=== PATIENT | female | born 1960 | race Caucasian/White ===

== ENCOUNTER 2017-08-09 11:54 | Observation (INO) | payer MEDICARE, OTHER ==
[~2017-08-09] VITALS: Ht 160 cm; Wt 79.8 kg
[2017-08-09] MEDS ORDERED: ONDANSETRON HCL 4 MG ORAL DISINTEGRATING TAB PO ONE (12:00)
[2017-08-09] MEDS ORDERED: SODIUM CHLORIDE 0.9% 1000ML 1,000 ML IV STA ×2 (12:00→13:15)
[2017-08-09] MEDS ORDERED: PANTOPRAZOLE 40 MG 10ML VIAL IV STA (12:08)
[2017-08-09 12:37] LABS: CLARITY,URINE CLOUDY (CLEAR); COLOR,URINE AMBER (YELLOW); LEUKOCYTE ESTERASE ,URINE 1+ (NEGATIVE); NITRITE,URINE POSITIVE (NEGATIVE)
[2017-08-09 12:38] LABS: BILIRUBIN,URINE 1+ (NEGATIVE); KETONES,URINE 1+ (NEGATIVE); PROTEIN,URINE DIPSTICK 2+ (NEGATIVE); URINE UROBILINOGEN 1 mg/dL (0.2 - 1)
[2017-08-09 12:41] LABS: BASOPHILS # (AUTO) 0.1 (0.0-0.1); BASOPHILS % 0.8 % (0.0-1.0); EOSINOPHILS # (AUTO) 0.1 (0.0-0.4); EOSINOPHILS % 0.5 % (0.0-6.0); HEMATOCRIT 42.8 % (34.2-44.1); HEMOGLOBIN 14.6 g/dL (12.0-16.0); LYMPHOCYTES % 20.4 % (18.0-39.1); MEAN CORPUSCULAR HEMOGLOBIN 29.7 pg (28-32); MEAN CORPUSCULAR HGB CONC 34.1 g/dL (31-35); MONOCYTES # (AUTO) 1.4 (0.2-0.8); MONOCYTES % 14.5 % (4.4-11.3); NEUTROPHILS % 63.2 % (38.7-80.0); PLATELET COUNT 243 x10e3/uL (140-360); RED BLOOD COUNT 4.92 x10e6/uL (3.6-5.1)
[2017-08-09 12:44] LABS: BACTERIA,URINE MANY /HPF; EPITHELIAL CELLS,URINE FEW /LPF; WBC,URINE (MAN) >50 /HPF (0-5)
[2017-08-09 12:59] LABS: ALBUMIN 4.2 g/dL (3.5-5.0); ALBUMIN/GLOBULIN RATIO 0.9 (0.8-2.0); ANION GAP 23.4 mmol/L (8-16); CALCIUM 10.6 mg/dL (8.4-10.2); CREATININE, SERUM 1.68 mg/dL (0.57-1.11); POTASSIUM 3.4 mmol/L (3.5-5.1)
[2017-08-09 13:06] LABS: CREATINE KINASE MB 1.3 ng/mL (0-5.0)
[2017-08-09] MEDS ORDERED: METRONIDAZOLE 500MG/NS 100ML 100 ML IV ONE (13:15)
[2017-08-09] MEDS ORDERED: LEVOFLOXACIN 500MG/D5W 100ML 100 ML IV ONE (13:15)
[2017-08-09] MEDS ORDERED: ONDANSETRON HCL INJ 2 MG/ML VIAL IV PRN (13:30)
--- OUTSIDE RECORDS SUMMARY | 2017-08-09 14:44 | XMS REPORT ---
Author Author [facility] [place] Address Unknown Phone Unavailable Care Team Providers Care Film Tests Checker Name Role Phone Unavailable Unavailable Problems This patient has no known problems. Allergies, Adverse Reactions, Alerts This patient has no known allergies or adverse reactions. Medications This patient has no known medications. Encounters Start Date/Time End Date/Time Encounter Type Admission Type Attending [facility] Facility Care Department Encounter ID 2016-11-17 00:04:23 Inpatient [facility] [id number] 2016-11-16 00:20:13 Inpatient [facility] [id number] 2016-11-15 18:16:24 Inpatient [facility] [id number] 2016-11-15 09:17:56 Inpatient [facility] [id number] 2016-11-15 00:04:00 Inpatient [facility] [id number] 2016-11-14 14:14:48 Inpatient [facility] [id number] 2016-11-14 00:08:49 Inpatient [facility] [id number] 2016-11-13 10:08:08 Inpatient [facility] [id number] 2016-11-13 00:17:27 Inpatient [facility] [id number] 2016-11-12 00:34:06 Inpatient [facility] [id number] 2016-11-11 18:58:17 Inpatient [facility] [id number] 2016-11-11 08:57:00 Inpatient [facility] [id number] 2016-11-11 00:00:00 Inpatient [facility] [id number] 2016-11-09 00:00:00 Inpatient [facility] [id number] 2017-10-31 00:00:00 2017-10-31 00:00:00 Outpatient [facility] [id number] 2017-09-08 00:00:00 2017-09-08 00:00:00 Outpatient [facility] [id number] 2017-09-05 00:00:00 2017-09-05 00:00:00 Outpatient [facility] [id number] 2017-09-05 00:00:00 2017-09-05 00:00:00 Outpatient [facility] [id number] 2017-08-01 13:30:51 2017-08-01 13:30:51 Outpatient [facility] [id number] 2017-07-19 09:33:43 2017-07-19 09:33:43 Outpatient [facility] [id number] 2017-07-13 08:29:37 2017-07-13 08:29:37 Outpatient [facility] [id number] 2017-07-12 12:45:09 2017-07-12 12:45:09 Outpatient [facility] [id number] 2017-07-11 00:00:00 2017-07-11 00:00:00 Outpatient [facility] [id number] 2017-07-05 10:03:05 2017-07-05 10:03:05 Outpatient [facility] [id number] 2017-06-27 00:00:00 2017-06-27 00:00:00 Outpatient [facility] [id number] 2017-06-09 15:35:04 2017-06-09 15:35:04 Outpatient [facility] [id number] 2017-06-03 13:55:09 2017-06-03 13:55:09 Outpatient [facility] [id number] 2017-06-02 00:00:00 2017-06-02 00:00:00 Outpatient [facility] [id number] 2017-05-30 00:00:00 2017-05-30 00:00:00 Outpatient [facility] [id number] 2017-05-27 12:45:52 2017-05-27 12:45:52 Outpatient [facility] [id number] 2017-05-26 00:00:00 2017-05-26 00:00:00 Outpatient [facility] [id number] 2017-05-24 14:49:29 2017-05-24 14:49:29 Outpatient [facility] [id number] 2017-05-20 00:00:00 2017-05-20 00:00:00 Outpatient [facility] [id number] 2017-05-20 00:00:00 2017-05-20 00:00:00 Outpatient [facility] [id number] 2017-05-09 15:23:18 2017-05-09 15:23:18 Outpatient [facility] [id number] 2017-03-28 10:26:44 2017-03-28 10:26:44 Outpatient [facility] [id number] 2017-03-17 13:54:59 2017-03-17 13:54:59 Outpatient [facility] [id number] 2017-02-28 08:22:05 2017-02-28 08:22:05 Outpatient [facility] [id number] 2017-02-24 14:07:54 2017-02-24 14:07:54 Outpatient [facility] [id number] 2017-02-24 13:27:20 2017-02-24 13:27:20 Outpatient [facility] [id number] 2017-02-14 00:00:00 2017-02-14 00:00:00 Outpatient [facility] [id number] 2017-01-24 13:47:29 2017-01-24 13:47:29 Outpatient [facility] [id number] 2017-01-05 11:20:11 2017-01-05 11:20:11 Outpatient [facility] [id number] 2016-12-29 00:00:00 2016-12-29 00:00:00 Outpatient [facility] [id number] 2016-12-08 00:00:00 2016-12-08 00:00:00 Outpatient [facility] [id number] 2016-12-06 09:59:18 2016-12-06 09:59:18 Outpatient [facility] [id number] 2016-12-01 12:46:33 2016-12-01 12:46:33 Outpatient [facility] [id number] 2016-11-29 14:08:58 2016-11-29 14:08:58 Outpatient [facility] [id number] 2016-11-29 10:01:33 2016-11-29 10:01:33 Outpatient [facility] [id number] 2016-11-29 00:00:00 2016-11-29 00:00:00 Outpatient [facility] [id number] 2016-11-25 12:49:49 2016-11-25 12:49:49 Outpatient [facility] [id number] 2016-11-25 12:29:36 2016-11-25 12:29:36 Outpatient [facility] [id number] 2016-11-24 10:15:08 2016-11-24 10:15:08 Outpatient [facility] [id number] 2016-11-24 09:29:35 2016-11-24 09:29:35 Outpatient [facility] [id number] 2016-11-24 00:00:00 2016-11-24 00:00:00 Outpatient [facility] [id number] 2016-11-09 00:00:00 2016-11-09 00:00:00 Outpatient [facility] [id number] 2016-11-08 07:06:52 2016-11-08 07:06:52 Outpatient [facility] [id number] 2016-11-08 00:00:00 2016-11-08 00:00:00 Outpatient [facility] [id number] 2016-11-05 00:00:00 2016-11-05 00:00:00 Outpatient [facility] [id number] 2016-11-04 00:00:00 2016-11-04 00:00:00 Outpatient [facility] [id number] 2016-11-04 00:00:00 2016-11-04 00:00:00 Outpatient [facility] [id number] 2016-11-03 11:31:56 2016-11-03 11:31:56 Outpatient [facility] [id number] 2016-11-03 00:00:00 2016-11-03 00:00:00 Outpatient [facility] [id number] 2016-10-28 10:20:03 2016-10-28 10:20:03 Outpatient [facility] [id number] 2016-10-28 00:00:00 2016-10-28 00:00:00 Outpatient [facility] [id number] 2016-10-25 12:54:28 2016-10-25 12:54:28 Outpatient [facility] [id number] 2016-10-24 00:00:00 2016-10-24 00:00:00 Outpatient [facility] [id number] 2016-10-21 10:19:00 2016-10-21 10:19:00 Outpatient [facility] [id number] 2016-10-20 11:44:27 2016-10-20 11:44:27 Outpatient [facility] [id number] 2016-10-20 09:29:23 2016-10-20 09:29:23 Outpatient [facility] [id number] 2016-10-19 08:33:00 2016-10-19 08:33:00 Outpatient [facility] [id number] 2016-08-02 08:44:58 2016-08-02 08:44:58 Outpatient [facility] [id number]
[2017-08-09] MEDS ORDERED: POTASSIUM CHLORIDE 20 MEQ TAB CR PO STA (15:27)
[2017-08-09] MEDS ORDERED: METOPROLOL TART25 MG PO (17:20)
[2017-08-09] MEDS ORDERED: CETIRIZINE HCL10 MG PO (17:20)
[2017-08-09] MEDS ORDERED: AMLODIPINE BESY10 MG PO (17:20)
[2017-08-09 18:08] VITALS: BP 117/85
[2017-08-09 18:14] VITALS: BP 117/85
[2017-08-09] MEDS: METRONIDAZOLE 500MG/NS 100ML 100 ML IV SCH ×2 (18:30→23:28)
[2017-08-09] MEDS: SODIUM CHLORIDE 0.9% 1000ML 1,000 ML IV SCH ×2 (18:30→21:27)
--- NOTE | 2017-08-09 18:46 | History and Physical ---
Patient of Dr. Granados and usually followed at [facility]. Admitted with vomiting, diarrhea, abdominal cramps, history of carcinoma of the ovary, carcinoma of the head and neck, right radical neck dissection, history of left upper lobe lobectomy in 2018 at [facility]. No other surgeries. MEDICATIONS: Include metoprolol 25 mg a day, amlodipine, cholesterol lowering agent. ALLERGIES: SHE HAS NO KNOWN ALLERGIES. She has a history of hypertension, hyperlipidemia, gastroesophageal reflux. She is dyspneic on slight exertion. She is now disabled after her lungs. Denies GI or complaints. Denies heart problems except for hypertension. Denies strokes. PHYSICAL EXAMINATION GENERAL: She is a well-developed white female looking somewhat older than her stated age. She was complaining of vomiting and inability to eat for approximately 3 days. She believe she may have had eaten some rice, which was old. VITALS: Temperature 98.2, pulse 71, respirations 18, blood pressure 135/80. HEENT: Normocephalic and atraumatic. Eyes: Extraocular muscles intact. Scar of right side of neck for radical neck dissection. CHEST: Scar of chest wall. Lungs with diminished breath sounds. HEART: Regular rhythm. ABDOMEN: Nontender. EXTREMITIES: Nonedematous. IMPRESSION 1. Gastroenteritis. 2. History of lung cancer, head and neck cancer. 3. Ex-smoker. 4. Chronic obstructive pulmonary disease. PLAN: For bronchodilators. Partial resumption of antihypertensive medications. IV fluids. Check stool for C. diff. Currently, she has been given Flagyl and Levaquin. Check stool for cultures. Defer C. diff as she has not been on antibiotics. Thank you for this kind referral. Job#: [id number] PEDRO
[2017-08-09] MEDS: ALBUTEROL/IPRATROPIUM 3 ML NEB NEB SCH (19:00)
[2017-08-09] MEDS ORDERED: ONDANSETRON HCL 4 MG ORAL DISINTEGRATING TAB PO PRN (19:45)
[2017-08-09 19:49] VITALS: BP 117/85
[2017-08-09] MEDS ORDERED: ONDANSETRON HCL 4 MG ORAL DISINTEGRATING TAB SL PRN (20:00)
--- NOTE | 2017-08-09 20:13 | Diagnostic Imaging Report ---
EXAMINATION: PA and lateral views of the chest. COMPARISON: None CLINICAL HISTORY: dehydration DISCUSSION: Lines/tubes: None. Lungs: The lungs are well inflated. Linear atelectasis. No evidence of pneumonia or pulmonary edema. Pleura: There is no pleural effusion or pneumothorax. Heart and mediastinum: The cardiomediastinal silhouette is normal. Bones and soft tissues: No acute bony abnormalities. IMPRESSION: No acute cardiopulmonary abnormalities. Signed by: Dr. Yayo Zee M.D. on 08/09/2017 8:10 PM
--- NOTE | 2017-08-09 20:15 | Diagnostic Imaging Report ---
Exam: Abdominal film Clinical History: Dehydration Comparison: None. DISCUSSION: Frontal view of the abdomen shows a nonobstructive bowel gas pattern with mild amount of retained stool. No dilated, air-filled loops of bowel. There are no abnormal calcifications. Surgical clips. IMPRESSION: 1. Nonobstructive bowel gas pattern. Signed by: Dr. Yayo Zee M.D. on 08/09/2017 8:11 PM
[2017-08-09] MEDS: METOPROLOL SUCCINATE 25 MG TAB XL PO SCH (20:48)
[2017-08-09 21:04] VITALS: BP 142/85
[2017-08-09 23:54] VITALS: BP 116/85
[2017-08-10] MEDS: ALBUTEROL/IPRATROPIUM 3 ML NEB NEB SCH ×2 (01:00→07:00)
[2017-08-10 04:00] VITALS: BP 114/71
[2017-08-10] MEDS: METRONIDAZOLE 500MG/NS 100ML 100 ML IV SCH (05:35)
[2017-08-10] MEDS: SODIUM CHLORIDE 0.9% 1000ML 1,000 ML IV SCH (05:35)
[2017-08-10 06:12] LABS: BASOPHILS # (AUTO) 0.1 (0.0-0.1); BASOPHILS % 0.8 % (0.0-1.0); EOSINOPHILS # (AUTO) 0.1 (0.0-0.4); EOSINOPHILS % 1.9 % (0.0-6.0); HEMOGLOBIN 11.7 g/dL (12.0-16.0); LYMPHOCYTES # (AUTO) 1.8 (1.0-3.2); LYMPHOCYTES % 24.4 % (18.0-39.1); MEAN CORPUSCULAR HEMOGLOBIN 29.7 pg (28-32); MEAN CORPUSCULAR HGB CONC 33.4 g/dL (31-35); MEAN CORPUSCULAR VOLUME 88.8 fL (81-99); MONOCYTES # (AUTO) 1.4 (0.2-0.8); MONOCYTES % 19.2 % (4.4-11.3); NEUTROPHILS % 52.9 % (38.7-80.0); PLATELET COUNT 170 x10e3/uL (140-360); RED BLOOD COUNT 3.94 x10e6/uL (3.6-5.1)
[2017-08-10 06:34] LABS: ALBUMIN 3.3 g/dL (3.5-5.0); ANION GAP 16.6 mmol/L (8-16); CALCIUM 8.8 mg/dL (8.4-10.2); CREATININE, SERUM 1.05 mg/dL (0.57-1.11); POTASSIUM 3.6 mmol/L (3.5-5.1)
[2017-08-10 08:23] VITALS: BP 123/87
[2017-08-10] MEDS ORDERED: LEVAQUIN500 MG PO ×2 (08:32→13:43)
[2017-08-10] MEDS ORDERED: FLAGYL500 MG PO (08:33)
[2017-08-10] MEDS ORDERED: PANTOPRAZOLE 40 MG 10ML VIAL IV SCH (09:00)
[2017-08-10] MEDS ORDERED: LEVOFLOXACIN 500MG/D5W 100ML 100 ML IV SCH (09:00)
--- NOTE | 2017-08-10 09:15 | Discharge Summary ---
Patient was admitted overnight for dehydration. She is usually followed by the [facility]. She is a patient of Dr. Granados and Dr. Twan Christopher. Admitted with vomiting, diarrhea and abdominal cramps. Remote history of carcinoma of the ovary, carcinoma of the head and neck with right radical neck dissection, history of left upper lobe lobectomy at [facility] in 2018. She has quit smoking. Her medications include metoprolol, amlodipine, and a cholesterol lowering agent. She has no known allergies. She has been disabled because of dyspnea on exertion. She does not use nebulizers or inhalers, and has not required supplemental oxygen. She admits to eating rice, which had been in the refrigerator for several days. A serious toxin is suspected. The patient was treated with IV fluids. Her amlodipine was held. Her statin was held. She was treated with Levaquin and Flagyl. She improved. There was no stool to collect. She is discharged to be followed at the [facility] to gradually resume her home medications. She was given 5 days of Levaquin and Flagyl. She was asked to throw out the old rice. VINCENT MCKEON MD Job#: [id number] RI cc:MD DR. PANCHO MILLAN
--- NOTE | 2017-08-10 10:14 | Consultation ---
DATE OF CONSULTATION: RENAL CONSULTATION Thank you for the consult. Ms. Gilmore is a pleasant, 57-year-old female with past medical history significant for prior history of GERD, prior history of hysterectomy, history of lung cancer, history of ovarian cancer, head and neck cancer, status post partial lobectomy of left lower lung, admitted to the hospital after episodes of nausea, vomiting, diarrhea, dehydration. Creatinine was 1.6 on admission. Given IV fluids, and the creatinine has improved to around 1.1 mg/dL. Renal consultation has been asked for the management of acute kidney injury. Currently, no fever, no chills, no nausea, no vomiting, no diarrhea, no abdominal pain at this time, no other specific symptoms. PAST MEDICAL HISTORY: As outlined above. Also, hypertension. ALLERGIES: NO KNOWN DRUG ALLERGIES. SOCIAL HISTORY: No current tobacco or alcohol use. FAMILY HISTORY: Noncontributory. REVIEW OF SYSTEMS: See HPI. Otherwise, all systems are negative. MEDICATIONS: The patient is on Flagyl, metoprolol, Levaquin, pantoprazole. She has also received IV fluids with normal saline at 125 mL per hour. PHYSICAL EXAMINATION VITAL SIGNS: Blood pressure is 123/87, 79 pulse, 18 respirations. HEENT: No cervical lymphadenopathy. NECK: Supple, without masses. No obvious JVD. Moist oral mucosa. SKIN: Moist, with good skin turgor. CHEST: Chest wall with good expansion. No chest wall tenderness. LUNGS: Clear to auscultation bilaterally. CARDIOVASCULAR: S1 and S2. No obvious gallop, rub or murmur. ABDOMEN: Soft. Positive bowel sounds. Nontender. No organomegaly. EXTREMITIES: No evidence of lower extremity edema. No clubbing. No cyanosis. NEUROLOGIC: Awake, alert, oriented x3. Grossly nonfocal exam. LABS: Sodium 137 now, was 134. Potassium 3.6 now, was 3.4. Chloride 102 and bicarb 22. BUN 15 now, was 28 on admission. Creatinine is now 1.1, was 1.7 on admission. IMPRESSION AND PLAN 1. Acute kidney injury, likely secondary to volume depletion from vomiting, diarrhea, and loss of volume as a result of that. The patient has responded quite well to IV fluid hydration. Would recommend to discontinue the IV fluids now. The patient appears to be on the euvolemic side now. We will repeat labs again in the morning including basic metabolic panel, alk phos and CBC. Will get urine electrolytes and make further recommendations. At baseline, the patient may have chronic kidney disease stage 2 from his history of hypertension. As part of the workup for that, I will check a urine protein to urine creatinine ratio. I will also check a renal ultrasound and evaluate for chronicity and also for possibility of hydronephrosis. 2. Hypertension. Continue current medications. 3. Hyponatremia, resolved after intravenous fluid hydration with isotonic fluids. 4. Hypokalemia, resolved after replacement with 20 milliequivalents times 1. Thank you, once again, for this consultation. We will follow the patient closely with you and make further recommendations. Job#: [id number] cc:MD JERMAINE UMANA M.D.
[2017-08-10] MEDS: METOPROLOL SUCCINATE 25 MG TAB XL PO SCH (11:49)
[2017-08-10 11:56] VITALS: BP 141/81
[2017-08-10 12:30] VITALS: BP 141/81
[2017-08-10] MEDS ORDERED: FLAGYL250 MG PO (13:43)
== END 2017-08-10 14:06 | disposition home or self-care (01) ==
LOC: ER 11:54 → ERHOLD 14:41 → IMCU 17:39
PROVIDERS: ADMIT Internal Medicine; ATTEND Internal Medicine
DX: E86.0 Dehydration (principal); I10 Essential (primary) hypertension; E78.5 Hyperlipidemia, unspecified; K52.9 Noninfective gastroenteritis and colitis, unspecified; Z85.118 Personal history of other malignant neoplasm of bronchus and lung; Z85.43 Personal history of malignant neoplasm of ovary; Z85.89 Personal history of malignant neoplasm of other organs and systems; Z87.891 Personal history of nicotine dependence; J44.9 Chronic obstructive pulmonary disease, unspecified; N17.9 Acute kidney failure, unspecified; E87.1 Hypo-osmolality and hyponatremia; E87.6 Hypokalemia
CPT/HCPCS: 36415 ×2; 71046; 74018; 80053 ×2; 81001; 82150; 82550; 82553; 83605; 83690; 84484; 85025 ×2; 87086; 87186; 93005; 99284; G0378 ×2; J1956 ×2; J7030 ×2

== ENCOUNTER 2017-08-16 07:36 | Emergency (ER) | payer OTHER ==
[~2017-08-16] VITALS: Ht 160 cm; Wt 79.8 kg
[~2017-08-16 07:36] MED LIST: AMLODIPINE BESY10 MG PO; CETIRIZINE HCL10 MG PO; FLAGYL250 MG PO; FLAGYL500 MG PO; LEVAQUIN500 MG PO; METOPROLOL TART25 MG PO
--- OUTSIDE RECORDS SUMMARY | 2017-08-16 07:38 | XMS REPORT | Continuity of Care Document ---
Author Author [facility] Organization [facility] Address [address] [place] [address] Phone Unavailable Care Team Providers Care Digital Media Director Name Role Phone NONSTAFF PCP Unavailable Insurance Providers Guarantor Porsha Meza Address [address] [place] [address] Email PT [facility] [email or web address] Policy Number [id number] Subscriber's Name Porsha Meza Relationship 18 Self / Same As Patient Effective Date 17 Advance Directives Directive Response Recorded Date/Time Does the patient have an advance directive? No 08/09/17 5:58pm If yes, is advance directive on file with [facility]? No 08/09/17 5:58pm If not on file with [facility] will patient provide a copy? No 08/09/17 5:58pm Do you have a Directive to Physician? No 08/09/17 1:19pm Do you have a Medical Power of Community Liaison? No 08/09/17 1:19pm Do you have an out of hospital Do Not Resuscitate Order? No 08/09/17 1:19pm Do you have any special needs we should be aware of? No 08/09/17 1:19pm Do you have a support person here with you today? No 08/09/17 1:19pm Did patient receive Notice of Privacy Practices? Yes 08/09/17 1:19pm Did patient receive patient rights and responsibilities? Yes 08/09/17 1:19pm Problems Medical Problem Onset Date Status Dehydration Unknown Diarrhea Unknown Medications Current Home Medications Medication Dose Units Route Directions Days Qty Instructions Start Date Levofloxacin (Levaquin) 500 Mg Tablet 500 Mg Oral Daily Metoprolol Tartrate 25 Mg Tablet 25 Mg Oral Twice A Day Metronidazole (Flagyl) 250 Mg Tablet 250 Mg Oral Three Times A Day Past Home Medications Medication Directions Ordered Status Amlodipine Besylate 10 Mg Tablet, 10 Mg Oral Daily Discontinued Cetirizine Hcl 10 Mg Tablet, 10 Mg Oral Daily Discontinued Social History Social History Problem Response Recorded Date/Time Onset Date Status Hx Psychiatric Problems No 08/09/2017 5:58pm Not Applicable Not Applicable Hx Eating Disorder No 08/09/2017 5:58pm Not Applicable Not Applicable Hx Substance Use Disorder No 08/09/2017 5:58pm Not Applicable Not Applicable Hx Depression No 08/09/2017 5:58pm Not Applicable Not Applicable Hx Alcohol Use Yes 08/09/2017 5:58pm Not Applicable Not Applicable Hx Substance Use Treatment No 08/09/2017 5:58pm Not Applicable Not Applicable Hx Physical Abuse No 08/09/2017 5:58pm Not Applicable Not Applicable Smoking Status Start Date Stop Date Former smoker Hospital Discharge Instructions No hospital discharge instruction information available. Plan of Care Discharge Date 08/10/17 2:06pm Disposition HOME, SELF-CARE Instructions/Education Provided Dehydration - Adult Prescriptions See Medication Section Additional Instructions/Education Follow up with PCP in 1-2 weeks Functional Status Query Response Date Recorded Assistive Devices None August 09, 2017 6:08pm Ambulation Ability Independent August 09, 2017 6:08pm Toileting Ability Independent August 09, 2017 6:08pm Allergies, Adverse Reactions, Alerts No known allergies. Immunizations No immunization information available. Vital Signs Acute Vital Signs Vital Response Date/Time Temperature (Fahrenheit) 99.2 degrees F (97.6 - 99.5) 08/10/2017 12:30pm Pulse Pulse Rate (adult) 73 bpm (60 - 90) 08/10/2017 12:30pm Respiratory Rate 18 bpm (12 - 24) 08/10/2017 12:30pm Blood Pressure 141/81 mm Hg 08/10/2017 12:30pm Height 5 ft 3 in 08/09/2017 11:57am Weight 176 lb 08/10/2017 8:24am Body Mass Index 31.2 kg/m^2 08/10/2017 8:24am Results Laboratory Results Test Name Result Units Flags Reference Collection Date/Time Result Date/ Time Comments White Blood Count 7.50 x10e3/uL 4.8-10.8 08/10/2017 5:55am 08/10/2017 6 :14am Red Blood Count 3.94 x10e6/uL 3.6-5.1 08/10/2017 5:55am 08/10/2017 6: 14am Hemoglobin 11.7 g/dL L 12.0-16.0 08/10/2017 5:55am 08/10/2017 6:14am Hematocrit 35.0 % 34.2-44.1 08/10/2017 5:55am 08/10/2017 6:14am Mean Corpuscular Volume 88.8 fL 81-99 08/10/2017 5:55am 08/10/2017 6: 14am Mean Corpuscular Hemoglobin 29.7 pg 28-32 08/10/2017 5:55am 08/10/2017 6:14am Mean Corpuscular Hemoglobin Concent 33.4 g/dL 31-35 08/10/2017 5:55am 08/10/2017 6:14am Red Cell Distribution Width 14.0 % 11.7-14.4 08/10/2017 5:55am 2017 6:14am Platelet Count 170 x10e3/uL 140-360 08/10/2017 5:55am 08/10/2017 6: 14am Neutrophils (%) (Auto) 52.9 % 38.7-80.0 08/10/2017 5:55am 08/10/2017 6: 14am Lymphocytes (%) (Auto) 24.4 % 18.0-39.1 08/10/2017 5:55am 08/10/2017 6: 14am Monocytes (%) (Auto) 19.2 % H 4.4-11.3 08/10/2017 5:55am 08/10/2017 6: 14am Eosinophils (%) (Auto) 1.9 % 0.0-6.0 08/10/2017 5:55am 08/10/2017 6: 14am Basophils (%) (Auto) 0.8 % 0.0-1.0 08/10/2017 5:55am 08/10/2017 6:14am IM GRANULOCYTES % 0.8 % 0.0-1.0 08/10/2017 5:55am 08/10/2017 6:14am Neutrophils # (Auto) 4.0 2.1-6.9 08/10/2017 5:55am 08/10/2017 6:14am Lymphocytes # (Auto) 1.8 1.0-3.2 08/10/2017 5:55am 08/10/2017 6:14am Monocytes # (Auto) 1.4 H 0.2-0.8 08/10/2017 5:55am 08/10/2017 6:14am Eosinophils # (Auto) 0.1 0.0-0.4 08/10/2017 5:55am 08/10/2017 6:14am Basophils # (Auto) 0.1 0.0-0.1 08/10/2017 5:55am 08/10/2017 6:14am Absolute Immature Granulocyte (auto 0.06 x10e3/uL 0-0.1 08/10/2017 5: 55am 08/10/2017 6:14am Urine Color MARCO H YELLOW 08/09/2017 12:01pm 08/09/2017 12:38pm Urine Clarity CLOUDY H CLEAR 08/09/2017 12:01pm 08/09/2017 12:38pm Urine Specific [place] 1.020 1.010-1.025 08/09/2017 12:01pm 2017 12:38pm Urine pH 6 5 - 7 08/09/2017 12:01pm 08/09/2017 12:38pm Urine Leukocyte Esterase 1+ H NEGATIVE 08/09/2017 12:01pm 08/09/2017 12:38pm Urine Nitrite POSITIVE H NEGATIVE 08/09/2017 12:01pm 08/09/2017 12: 38pm Urine Protein 2+ H NEGATIVE 08/09/2017 12:01pm 08/09/2017 12:38pm Urine Glucose (UA) NEGATIVE NEGATIVE 08/09/2017 12:01pm 08/09/2017 12 :38pm Urine Ketones 1+ H NEGATIVE 08/09/2017 12:01pm 08/09/2017 12:38pm Urine Urobilinogen 1 mg/dL 0.2 - 1 08/09/2017 12:01pm 08/09/2017 12: 38pm Urine Bilirubin 1+ H NEGATIVE 08/09/2017 12:01pm 08/09/2017 12:38pm Urine Blood TRACE H NEGATIVE 08/09/2017 12:01pm 08/09/2017 12:38pm Urine WBC >50 /HPF H 0-5 08/09/2017 12:01pm 08/09/2017 12:44pm Urine RBC 6-10 /HPF H 0-5 08/09/2017 12:01pm 08/09/2017 12:44pm Urine Bacteria MANY /HPF H NONE 08/09/2017 12:01pm 08/09/2017 12:44pm Urine Epithelial Cells FEW /LPF NONE 08/09/2017 12:01pm 08/09/2017 12: 44pm Sodium Level 137 mmol/L 136-145 08/10/2017 5:55am 08/10/2017 7:07am Potassium Level 3.6 mmol/L 3.5-5.1 08/10/2017 5:55am 08/10/2017 7:07am Chloride Level 102 mmol/L 98-107 08/10/2017 5:55am 08/10/2017 7:07am Carbon Dioxide Level 22 mmol/L 22-08/10/2017 5:55am 08/10/2017 7: 07am Anion Gap 16.6 mmol/L H 8-16 08/10/2017 5:55am 08/10/2017 7:07am Blood Urea Nitrogen 15 mg/dL 7-08/10/2017 5:55am 08/10/2017 7:07am Creatinine 1.05 mg/dL 0.57-1.11 08/10/2017 5:55am 08/10/2017 7:07am BUN/Creatinine Ratio 14 6-08/10/2017 5:55am 08/10/2017 7:07am Estimat Glomerular Filtration Rate 54 ML/MIN L 60- 08/10/2017 5:55am 7:07am Ranges were taken from the National Kidney Disease Education Program and the National Kid[employer] Foundation literature. Reference ranges: 60 or greater: Normal 16-59 (for 3 consecutive months): Chronic kidney disease 15 or less: Kidney failure Glucose Level 92 mg/dL 74-118 08/10/2017 5:55am 08/10/2017 7:07am Calcium Level 8.8 mg/dL # 8.4-10.2 08/10/2017 5:55am 08/10/2017 7:07am Lactic Acid Level 16.8 MG/DL 4.5-19.8 08/09/2017 12:00pm 08/09/2017 12: 52pm Total Bilirubin 0.9 mg/dL 0.2-1.2 08/10/2017 5:55am 08/10/2017 7:07am Aspartate Amino Transf (AST/SGOT) 28 IU/L 5-34 08/10/2017 5:55am 2017 7:07am Alanine Aminotransferase (ALT/SGPT) 26 IU/L 0-55 08/10/2017 5:55am 7:07am Total Protein 6.7 g/dL # 6.5-8.1 08/10/2017 5:55am 08/10/2017 7:07am Albumin 3.3 g/dL # L 3.5-5.0 08/10/2017 5:55am 08/10/2017 7:07am Globulin 3.4 g/dL 2.3-3.5 08/10/2017 5:55am 08/10/2017 7:07am Albumin/Globulin Ratio 1.0 0.8-2.0 08/10/2017 5:55am 08/10/2017 7: 07am Alkaline Phosphatase 63 IU/L 40-150 08/10/2017 5:55am 08/10/2017 7: 07am Creatine Kinase 93 IU/L 29-168 08/09/2017 12:00pm 08/09/2017 1:01pm Creatine Kinase MB 1.30 ng/mL 0-5.0 08/09/2017 12:00pm 08/09/2017 1: 10pm Troponin I 0.081 ng/mL 0-0.300 08/09/2017 12:00pm 08/09/2017 1:10pm Amylase Level 73 U/L 25-125 08/09/2017 12:00pm 08/09/2017 5:43pm Lipase 65 U/L 8-78 08/09/2017 12:00pm 08/09/2017 1:01pm Microbiology Results Procedure Source Organism/Result Collection Date/Time Result Date/Time Result Status Urine Culture Urine,Random GRAM NEGATIVE ANNIKA 08/09/2017 12:01pm 2017 10:01am Preliminary Procedures Procedure Status Date Provider(s) X-ray of chest, two views Active 08/09/17 VINCENT MCKEON MD Ultrasound, renal Active 08/10/17 GABE THOMAS MD Encounters Encounter Location Arrival/Admit Date Discharge/Depart Date Attending Provider Discharged Inpatient (obs) [facility] 08/09/17 2:41pm 2:06pm JERMAINE MORE MD
--- NOTE | 2017-08-16 08:40 | Diagnostic Imaging Report ---
PROCEDURE:CHEST 2 VIEWS TECHNIQUE:PA and lateral chest INDICATION:Pain in both legs when standing; shortness of breath COMPARISON:None. FINDINGS: Lingular scar. Biapical calcified granulomas. Lungs are otherwise clear and symmetrically inflated. No pleural effusions. Normal heart size, mediastinal contour, and pulmonary vasculature. Intact skeleton. Multilevel degenerative disc disease. CONCLUSION: No acute cardiopulmonary abnormality. Dictated by: Scott Kimble M.D. on 08/16/2017 at 8:42 Electronically approved by: Scott Kimble M.D. on 08/16/2017 at 8:42
[2017-08-16 09:14] LABS: BASOPHILS # (AUTO) 0.1 (0.0-0.1); BASOPHILS % 0.8 % (0.0-1.0); EOSINOPHILS # (AUTO) 0.2 (0.0-0.4); EOSINOPHILS % 2.1 % (0.0-6.0); HEMOGLOBIN 12.8 g/dL (12.0-16.0); LYMPHOCYTES # (AUTO) 1.7 (1.0-3.2); LYMPHOCYTES % 16.7 % (18.0-39.1); MEAN CORPUSCULAR HEMOGLOBIN 29.5 pg (28-32); MEAN CORPUSCULAR HGB CONC 33.7 g/dL (31-35); MEAN CORPUSCULAR VOLUME 87.6 fL (81-99); MONOCYTES # (AUTO) 1.9 (0.2-0.8); MONOCYTES % 18.5 % (4.4-11.3); NEUTROPHILS # (AUTO) 6.1 (2.1-6.9); NEUTROPHILS % 60.3 % (38.7-80.0); PLATELET COUNT 352 x10e3/uL (140-360); RED BLOOD COUNT 4.34 x10e6/uL (3.6-5.1); RED CELL DISTRIBUTION WIDTH 14.1 % (11.7-14.4)
[2017-08-16 09:30] LABS: BILIRUBIN,URINE 2+ (NEGATIVE); CLARITY,URINE CLOUDY (CLEAR); COLOR,URINE YELLOW (YELLOW); KETONES,URINE TRACE (NEGATIVE); LEUKOCYTE ESTERASE ,URINE NEGATIVE (NEGATIVE); NITRITE,URINE NEGATIVE (NEGATIVE); PROTEIN,URINE DIPSTICK 1+ (NEGATIVE); URINE UROBILINOGEN 1 mg/dL (0.2 - 1)
[2017-08-16 09:33] LABS: ALBUMIN 3.5 g/dL (3.5-5.0); ALBUMIN/GLOBULIN RATIO 0.8 (0.8-2.0); CALCIUM 9.8 mg/dL (8.4-10.2); CREATININE, SERUM 1.52 mg/dL (0.57-1.11)
[2017-08-16 09:35] LABS: BACTERIA,URINE MODERATE /HPF; EPITHELIAL CELLS,URINE MODERATE /LPF; RBC,URINE 0-5 /HPF (0-5)
[2017-08-16 09:40] LABS: CREATINE KINASE MB 0.5 ng/mL (0-5.0)
[2017-08-16] MEDS ORDERED: POTASSIUM CHLORIDE 20 MEQ TAB CR PO STA (09:46)
[2017-08-16] MEDS ORDERED: SODIUM CHLORIDE 0.9% 1000ML 1,000 ML IV ONE (10:00)
[2017-08-16 10:33] LABS: EOSINOPHILS % (MANUAL) 2 % (0-7); LYMPHOCYTES % (MANUAL) 17 % (19-48); MONOCYTES % (MANUAL) 18 % (3.4-9.0); NEUTROPHILS % (MANUAL) 63 % (40-74)
[2017-08-16 10:34] LABS: ANISOCYTOSIS SLIGHT; HOWELL-JOLLY BODIES FEW; PLATELET ESTIMATE ADEQUATE; PLATELET MORPHOLOGY COMMENT NORMAL
[2017-08-16] MEDS ORDERED: IOPAMIDOL 370 MG/ML 200 ML INFUS..BTL INJ ONE (11:08)
[2017-08-16] MEDS ORDERED: SODIUM CHLORIDE 0.9% 50ML 50 ML ONE (11:08)
--- NOTE | 2017-08-16 11:10 | Diagnostic Imaging Report ---
PROCEDURE:CT CHEST WITH CONTRAST COMPARISON:None. INDICATIONS:Leg pain; shortness of breath; elevated D-dimer. TECHNIQUE: Pulmonary embolism protocol Volumetric CT chest after administration of 65 mL Isovue-370 intravenous contrast. Multiplanar reformatted images. DLP: 512.48 mGy*cm FINDINGS: Lungs: Postsurgical changes of wedge resection of the left lower lobe with associated scarring and suture material. There is a 1.9 x 1.7 cm nodule along the suture material (image 51, series 2) with enhancement. Lungs are otherwise clear. Airways: Normal Pleura: Normal Lymph nodes: Normal Pulmonary arteries: No filling defects. Normal caliber. Pulmonary artery diameter 3 cm. Thoracic aorta and great vessels: Normal diameter. Mild calcified and noncalcified atheromatous plaque of the left subclavian artery origin. Heart and pericardium: Normal Subdiaphragmatic organs: Multifocal atherosclerosis of the segmental and arcuate renal arteries. Otherwise, normal Skeleton: Intact. No lytic or blastic lesions. Soft tissues: Normal CONCLUSION: 1. No evidence of pulmonary embolism. 2. Postsurgical changes in the left lower lobe, likely related to wedge resection. A 1.9 x 1.7 cm nodule is present along the resection margin. This is concerning for tumor recurrence. Comparison with prior studies is needed. Dictated by: Scott Kimble M.D. on 08/16/2017 at 11:12 Electronically approved by: Scott Kimble M.D. on 08/16/2017 at 11:12
[2017-08-16 11:37] VITALS: BP 126/88
== END 2017-08-16 11:48 | disposition home or self-care (01) ==
LOC: ER 07:36
DX: M79.661 Pain in right lower leg (principal); M79.662 Pain in left lower leg; E87.6 Hypokalemia; E86.0 Dehydration; I10 Essential (primary) hypertension; E78.00 Pure hypercholesterolemia, unspecified; Z85.118 Personal history of other malignant neoplasm of bronchus and lung; Z85.43 Personal history of malignant neoplasm of ovary; Z85.89 Personal history of malignant neoplasm of other organs and systems
CPT/HCPCS: 36415; 71046; 71260; 80053; 81001; 82550; 82553; 84484; 85025; 85379; 93005; 99284; J7030; Q9967

== ENCOUNTER 2017-11-10 10:16 | Emergency (ER) | payer OTHER ==
[~2017-11-10] VITALS: Ht 160 cm; Wt 79.8 kg
[2017-11-10] MEDS ORDERED: TRAMADOL HCL 50 MG TAB PO ONE (10:45)
[2017-11-10] MEDS ORDERED: ULTRAM 50MG50 MG PO (11:19)
--- NOTE | 2017-11-10 12:03 | Diagnostic Imaging Report ---
EXAMINATION: PA and lateral views of the chest. COMPARISON: CT chest 08/16/2017 CLINICAL HISTORY: Status post fall 2 days ago, lower back and right-sided pain DISCUSSION: Lines/tubes: None. Lungs: The lungs are well inflated. Stable linear opacity in the posterior left lower lung consistent with previously visualized scarring. There is no evidence of pneumonia or pulmonary edema. Pleura: There is no pleural effusion or pneumothorax. Heart and mediastinum: Cardiomediastinal silhouette is unremarkable. Pulmonary vasculature is normal. Bones and soft tissues: No acute bony abnormalities. Mild degenerative changes in the thoracic spine IMPRESSION: No acute cardiopulmonary abnormalities. Signed by: Dr. Gustavo Sanabria M.D. on 11/10/2017 12:00 PM
--- NOTE | 2017-11-10 12:36 | Diagnostic Imaging Report ---
Exam: RIBS series History: Status post fall 2 days ago, lower back and right-sided pain Comparison: None. Findings: There is normal bone mineralization. Subacute, mildly displaced fracture of the lateral aspect of the right 10th rib. Other bony structures are intact Linear lucencies in the tissues of the right chest wall adjacent to the fracture likely represents subcutaneous air. No definite pneumothorax is visualized. Impression: 1. Subacute, mildly displaced fracture of the lateral aspect of the right 10th rib. Adjacent subcutaneous air. 2. No pneumothorax is visualized. Signed by: Dr. Gustavo Sanabria M.D. on 11/10/2017 12:32 PM
[2017-11-10 13:06] VITALS: BP 113/83
== END 2017-11-10 13:08 | disposition home or self-care (01) ==
LOC: ER 10:16
DX: S22.31XA Fracture of one rib, right side, initial encounter for closed fracture (principal); S20.221A Contusion of right back wall of thorax, initial encounter; W01.198A Fall on same level from slipping, tripping and stumbling with subsequent striking against other object, initial encounter; Y93.E1 Activity, personal bathing and showering; Y92.002 Bathroom of unspecified non-institutional (private) residence as the place of occurrence of the external cause; E11.9 Type 2 diabetes mellitus without complications; E78.5 Hyperlipidemia, unspecified; K21.9 Gastro-esophageal reflux disease without esophagitis; Z85.43 Personal history of malignant neoplasm of ovary
CPT/HCPCS: 71046; 71101; 99283

== ENCOUNTER 2018-08-23 11:43 | Inpatient (IN) | payer OTHER ==
[~2018-08-23] VITALS: Ht 160 cm; Wt 77.6 kg
[~2018-08-23 11:43] MED LIST changes: +ULTRAM 50MG50 MG PO
[2018-08-23] MEDS ORDERED: ONDANSETRON HCL INJ 2MG/ML 2ML 2 MG/ML VIAL IV STA (12:24)
[2018-08-23] MEDS ORDERED: SODIUM CHLORIDE 0.9% 1000ML 1,000 ML IV STA (12:24)
[2018-08-23] MEDS ORDERED: DICYCLOMINE HCL 20 MG/2 ML VIAL IM ONE (12:30)
[2018-08-23 13:14] LABS: BASOPHILS # (AUTO) 0.1 (0.0-0.1); BASOPHILS % 0.8 % (0.0-1.0); EOSINOPHILS % 0.1 % (0.0-6.0); HEMATOCRIT 39.6 % (34.2-44.1); HEMOGLOBIN 13.7 g/dL (12.0-16.0); LYMPHOCYTES # (AUTO) 1.2 (1.0-3.2); LYMPHOCYTES % 15.4 % (18.0-39.1); MEAN CORPUSCULAR HEMOGLOBIN 29.8 pg (28-32); MEAN CORPUSCULAR HGB CONC 34.6 g/dL (31-35); MEAN CORPUSCULAR VOLUME 86.3 fL (81-99); MONOCYTES # (AUTO) 1.2 (0.2-0.8); MONOCYTES % 15.3 % (4.4-11.3); NEUTROPHILS # (AUTO) 5.2 (2.1-6.9); NEUTROPHILS % 67.9 % (38.7-80.0); PLATELET COUNT 163 x10e3/uL (140-360); RED BLOOD COUNT 4.59 x10e6/uL (3.6-5.1); RED CELL DISTRIBUTION WIDTH 14.9 % (11.7-14.4)
--- NOTE | 2018-08-23 13:22 | Diagnostic Imaging Report ---
Exam: Abdominal film Clinical History: Dehydration, concern for bowel obstruction Comparison: None. DISCUSSION: The bowel gas pattern shows no dilated, air-filled loops of bowel. Bilateral pelvic surgical clips. Multiple small nonspecific calcific densities project over the upper abdomen. Surgical clips project over the lumbar spinal column. No mass effect or organomegaly. Incompletely healed posterior right 10th and 11th rib fracture. Questionable compression deformity of L1. IMPRESSION: Nonobstructive bowel gas pattern. Signed by: Dr. Teto Lindsay M.D. on 08/23/2018 1:19 PM
[2018-08-23] MEDS ORDERED: DIATRIZOATE MEGL/DIATRIZOA SOD 30 ML BTL PO ONE (13:43)
[2018-08-23 14:00] LABS: BILIRUBIN,URINE LARGE (NEGATIVE); CLARITY,URINE SL CLOUDY (CLEAR); COLOR,URINE YELLOW (YELLOW); LEUKOCYTE ESTERASE ,URINE TRACE (NEGATIVE); NITRITE,URINE NEGATIVE (NEGATIVE); PROTEIN,URINE DIPSTICK 2+ (NEGATIVE); URINE UROBILINOGEN 0.2 mg/dL (0.2 - 1)
[2018-08-23 14:01] LABS: KETONES,URINE 1+ (NEGATIVE)
[2018-08-23] MEDS ORDERED: SODIUM CHLORIDE 0.9% 1000ML 1,000 ML IV SCH (14:15)
[2018-08-23 14:19] LABS: BACTERIA,URINE MANY /HPF; EPITHELIAL CELLS,URINE MODERATE /LPF
[2018-08-23 14:28] LABS: ALBUMIN 3.7 g/dL (3.5-5.0); ALBUMIN/GLOBULIN RATIO 0.9 (0.8-2.0); ANION GAP 23.7 mmol/L (8-16); CALCIUM 8.4 mg/dL (8.4-10.2); CREATININE, SERUM 1.46 mg/dL (0.57-1.11); POTASSIUM 3.7 mmol/L (3.5-5.1)
[2018-08-23] MEDS ORDERED: CEFTRIAXONE SOD 1 GM VIAL IV ONE (14:30)
[2018-08-23] MEDS ORDERED: CEFTRIAXONE SOD 1 GM/NS 50 ML 50 ML IV ONE (14:45)
[2018-08-23] MEDS ORDERED: SODIUM CHLORIDE 0.9% 500ML 500 ML IV ONE (15:00)
--- NOTE | 2018-08-23 15:40 | Diagnostic Imaging Report ---
EXAMINATION: CT of the abdomen and pelvis with contrast. TECHNIQUE: Spiral CT images of the abdomen and pelvis were performed from the lung bases to the lesser trochanters after the intravenous administration of 100 cc Isovue-370. Coronal and sagittal reformatted images were obtained. COMPARISON: Abdominal radiograph same day CLINICAL HISTORY:Abdominal pain, history of malignancy DISCUSSION: ABDOMEN/PELVIS: LOWER THORAX:Postsurgical changes of the left lower lobe. HEPATOBILIARY:1 cm cyst in hepatic segment 7 near the dome. No additional focal hepatic lesions or intrahepatic biliary ductal dilatation. The hepatic parenchyma is diffusely hypoattenuating compatible with steatosis. The gallbladder is distended without pericholecystic inflammation. SPLEEN: No splenomegaly. PANCREAS: No focal masses or ductal dilatation. ADRENALS: 1.4 cm nodule in the medial limb of the left adrenal gland, average internal attenuation 95 Hounsfield units. KIDNEYS/URETERS: Nonspecific bilateral perinephric fat stranding. Exophytic cyst projects from the lower pole of the left kidney, average internal attenuation less than 10 Hounsfield units. Additional subcentimeter hypoattenuating foci within both kidneys, too small to further characterize but likely represent additional small cysts. 5 mm calculus in the proximal left ureter (coronal image 64), without hydronephrosis. 4 mm calculus in the distal right ureter (series 2 image 76), with mild hydronephrosis. PELVIC ORGANS/BLADDER: The urinary bladder is collapsed and poorly evaluated. The uterus is not identified and has presumably been removed. No adnexal mass. PERITONEUM/RETROPERITONEUM: No ascites. No pneumoperitoneum. LYMPH NODES: No pelvic sidewall, retroperitoneal, or mesenteric lymphadenopathy. Multiple surgical clips along the right and left pelvic sidewalls as well as the retroperitoneum. VESSELS: Atherosclerotic calcification of the abdominal aorta, major branch vessels, and iliac arterial systems without aneurysmal dilatation. GI TRACT: There is mild wall thickening and mucosal enhancement involving the majority of the colon, with some inflammatory stranding adjacent to the cecum. The appendix is normal. Duodenal diverticulum is noted. No small bowel dilatation to suggest obstruction. BONES AND SOFT TISSUE: Age-indeterminate mild anterior compression deformity of L1. Incompletely healed fractures of the right ninth, 10th, and 11th ribs. Ventral abdominal wall hernia contains omental fat without inflammatory change. Otherwise no focal soft tissue abnormality. IMPRESSION: 4-5 mm distal right ureteral calculus results in mild hydronephrosis and perinephric inflammation. 4-5 mm left ureteropelvic junction calculus without hydronephrosis. Wall thickening and mild adjacent inflammation involving the colon is concerning for infectious or inflammatory colitis in the appropriate clinical setting. Postsurgical changes related to pelvic and retroperitoneal lymph node dissection. Left adrenal nodule is indeterminate. Statistically this is likely to represent an adenoma, though metastatic disease is an additional consideration in the setting of prior malignancy. This lesion may be definitively characterized by CT or MRI of the abdomen with and without contrast (adrenal mass protocol). Age-indeterminate anterior compression deformity of L1. Correlate for point tenderness. Incompletely healed right rib fractures. Hepatic steatosis. Signed by: Dr. Teto Lindsay M.D. on 08/23/2018 3:37 PM
[2018-08-23] MEDS ORDERED: CIPROFLOXACIN 400 MG/D5W 200ML 200 ML IV SCH (16:00)
[2018-08-23] MEDS: SODIUM CHLORIDE 0.9% 1000ML 1,000 ML IV SCH (16:37)
[2018-08-23] MEDS ORDERED: AMLODIPINE BESY10 MG PO (17:01)
[2018-08-23] MEDS ORDERED: ASPIR 8181 MG PO (17:01)
[2018-08-23] MEDS ORDERED: DEXILANT30 MG PO (17:01)
[2018-08-23] MEDS ORDERED: ALENDRONATE SOD70 MG PO (17:01)
[2018-08-23] MEDS ORDERED: CETIRIZINE HCL10 MG PO (17:01)
[2018-08-23] MEDS ORDERED: IBUPROFEN400 MG PO (17:07)
[2018-08-23] MEDS ORDERED: HYDROXYZINE HCL25 MG PO (17:07)
[2018-08-23] MEDS ORDERED: PRAVASTATIN SOD40 MG PO (17:07)
[2018-08-23] MEDS ORDERED: TRIAMCINOLONE A15 G1 TOP (17:07)
[2018-08-23] MEDS ORDERED: IOPAMIDOL 370 MG/ML 200 ML INFUS..BTL INJ ONE (19:34)
[2018-08-23] MEDS ORDERED: SODIUM CHLORIDE 0.9% 50ML 50 ML ONE (19:34)
[2018-08-23 21:30] VITALS: BP 125/84
--- NOTE | 2018-08-23 21:30 | NUR ---
Pt received from the ER. Pt A&O and in no apparent distress. Pt on room and no tele. Pt has complaints of abdominal pain. All safety measures ensured, bed alarm on, and pt call cavazos near. Pt encouraged to use call cavazos for assistance.
[2018-08-23 21:56] VITALS: BP_SYST 125; BP_SYST 137; BP_DIAS 84; BP_DIAS 92
[2018-08-23] MEDS: METRONIDAZOLE 500MG/NS 100ML 100 ML IV SCH (22:05)
[2018-08-23] MEDS: ONDANSETRON HCL INJ 2MG/ML 2ML 2 MG/ML VIAL IV PRN (22:19)
[2018-08-23] MEDS: MORPHINE SULFATE INJ 4 MG/ML INJ 1ML IV PRN (22:19)
[2018-08-24] VITALS (8 sets, daily range): BP systolic 108–136; BP diastolic 71–81
[2018-08-24] MEDS ORDERED: ONDANSETRON HCL INJ 2MG/ML 2ML 2 MG/ML VIAL IV PRN (01:15)
[2018-08-24] MEDS ORDERED: CLONIDINE HCL 0.1 MG TAB PO PRN (01:15)
[2018-08-24] MEDS ORDERED: TRAMADOL HCL 50 MG TAB PO PRN (01:15)
[2018-08-24] MEDS ORDERED: PANTOPRAZOLE 40 MG 10ML VIAL IV STA (01:17)
--- NOTE | 2018-08-24 01:27 | NUR ---
Dr. Jered Liu rounding
--- NOTE | 2018-08-24 01:38 | NUR ---
Geoff DU rounding; Orders for pt added and home meds restarted.
--- NOTE | 2018-08-24 01:56 | NUR ---
Telemetry added to pt. Box #31 running SR 94.
[2018-08-24] MEDS: SODIUM CHLORIDE 0.9% 1000ML 1,000 ML IV SCH ×4 (04:56→23:39)
[2018-08-24] MEDS: METRONIDAZOLE 500MG/NS 100ML 100 ML IV SCH ×3 (05:08→21:11)
[2018-08-24] MEDS: MORPHINE SULFATE INJ 4 MG/ML INJ 1ML IV PRN ×3 (05:09→21:11)
[2018-08-24] MEDS: ONDANSETRON HCL INJ 2MG/ML 2ML 2 MG/ML VIAL IV PRN (05:09)
[2018-08-24 06:10] LABS: BASOPHILS % 0.6 % (0.0-1.0); EOSINOPHILS # (AUTO) 0.1 (0.0-0.4); EOSINOPHILS % 1.4 % (0.0-6.0); HEMOGLOBIN 10.3 g/dL (12.0-16.0); LYMPHOCYTES # (AUTO) 1.3 (1.0-3.2); MEAN CORPUSCULAR HGB CONC 34.3 g/dL (31-35); MEAN CORPUSCULAR VOLUME 87.5 fL (81-99); MONOCYTES # (AUTO) 1.3 (0.2-0.8); MONOCYTES % 21.1 % (4.4-11.3); NEUTROPHILS # (AUTO) 3.6 (2.1-6.9); PLATELET COUNT 114 x10e3/uL (140-360); RED BLOOD COUNT 3.43 x10e6/uL (3.6-5.1); RED CELL DISTRIBUTION WIDTH 15.3 % (11.7-14.4)
[2018-08-24 06:45] LABS: ALBUMIN 2.9 g/dL (3.5-5.0); ALBUMIN/GLOBULIN RATIO 0.9 (0.8-2.0); ANION GAP 18.5 mmol/L (8-16); CALCIUM 7.2 mg/dL (8.4-10.2); CREATININE, SERUM 1.04 mg/dL (0.57-1.11); POTASSIUM 3.5 mmol/L (3.5-5.1)
--- NOTE | 2018-08-24 06:45 | NUR ---
Walking rounds done and report received. Patient is awake, alert and able to make needs known. POC discussed. Patient was instructed to call for assistance and verbalized understanding. Tele #[phone], [phone]. Call cavazos within reach.
[2018-08-24] MEDS: CIPROFLOXACIN 400 MG/D5W 200ML 200 ML IV SCH ×2 (06:48→17:04)
[2018-08-24 07:06] LABS: PHOSPHORUS 0.9 MG/DL (2.3-4.7)
[2018-08-24 07:28] LABS: THYROID STIMULATING HORMONE 1.796 uIU/mL (0.350-4.940)
[2018-08-24 07:35] LABS: MAGNESIUM 0.9 MG/DL (1.3-2.1)
[2018-08-24] MEDS: DILTIAZEM HCL 30 MG TAB PO SCH ×2 (08:30→16:49)
[2018-08-24] MEDS: PANTOPRAZOLE SOD 40 MG TABEC PO SCH (08:51)
[2018-08-24] MEDS ORDERED: PANTOPRAZOLE 40 MG 10ML VIAL IV SCH (09:00)
[2018-08-24] MEDS ORDERED: PRAVASTATIN 20 MG TAB PO SCH (09:00)
[2018-08-24] MEDS: ASPIRIN 81 MG CHEW TAB PO SCH (09:10)
[2018-08-24] MEDS: METOPROLOL TARTRATE 25 MG TAB PO SCH ×2 (09:10→16:50)
[2018-08-24] MEDS: HYDROXYZINE HCL 25 MG TAB PO SCH ×3 (09:10→21:11)
[2018-08-24] MEDS: LORATADINE 10 MG TAB PO SCH (09:10)
[2018-08-24] MEDS: AMLODIPINE BESYLATE 10 MG TAB PO SCH (09:11)
[2018-08-24] MEDS: TRIAMCINOLONE ACET 0.1% CREAM 15 GM TUBE TOP SCH ×2 (09:12→16:50)
[2018-08-24 10:36] LABS: BILIRUBIN,URINE SMALL (NEGATIVE); CLARITY,URINE CLOUDY (CLEAR); COLOR,URINE YELLOW (YELLOW); KETONES,URINE 1+ (NEGATIVE); LEUKOCYTE ESTERASE ,URINE NEGATIVE (NEGATIVE); NITRITE,URINE NEGATIVE (NEGATIVE); PROTEIN,URINE DIPSTICK NEGATIVE (NEGATIVE); URINE UROBILINOGEN 0.2 mg/dL (0.2 - 1)
[2018-08-24 10:51] LABS: EPITHELIAL CELLS,URINE RARE /LPF; WBC,URINE (MAN) 0-5 /HPF (0-5)
[2018-08-24] MEDS ORDERED: MAGNESIUM SULFATE 2GM/50ML 50 ML IV ONE ×2 (11:00→11:30)
[2018-08-24] MEDS ORDERED: POTASSIUM PHOSPHATE 30 MM in SODIUM CHLORIDE 0.9% 250ML 250 ML IV SCH (11:30)
--- NOTE | 2018-08-24 13:00 | NUR ---
Patient transferred to room 212 with all belongings
--- NOTE | 2018-08-24 13:01 | NUR ---
received pt via wheelchair from obs unit. AAOx4, resp even and unlabored. pain 2/10 a this time and reports recently receiving pain med. oriented to room and use of call light. call light placed within reach.
--- NOTE | 2018-08-24 16:03 | Consultation ---
DATE OF CONSULTATION: 08/24/2018 Urology Consultation REASON FOR CONSULTATION: Stones and hydronephrosis. HISTORY OF PRESENT ILLNESS: Michelle Gilmore is a 58-year-old woman, who has never seen a urologist. She does report having mild stress type urinary incontinence as well as urge type urinary incontinence that is not severe. The patient never had any previous urolithiasis, hematuria, nor urinary tract infection. The patient had right-sided flank pain radiating to the right back and was admitted following evaluation and noting that there are bilateral ureteral stones with hydronephrosis on the right side. PAST MEDICAL AND SURGICAL HISTORY: 1. Total abdominal hysterectomy, bilateral salpingo-oophorectomy for ovarian cancer without any adjuvant therapy. 2. Status post surgery for head and neck cancer without any adjuvant therapy. 3. Status post excision of a lung cancer without adjuvant therapy. 4. Hypertension. 5. Hypercholesterolemia. 6. Osteoporosis. 7. Gastroesophageal reflux disease. MEDICATIONS: Please refer to the MAR. ALLERGIES: NONE KNOWN. SOCIAL HISTORY: The patient quit smoking when she had her head and neck cancer after smoking 3/4 packs per day for 35 years. 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 She denies any drug use. FAMILY HISTORY: Noncontributory to the active urological problems. REVIEW OF SYSTEMS: Discussed as above in history of present illness and past medical history, otherwise negative for all systems. PHYSICAL EXAMINATION: GENERAL: Very pleasant 58-year-old woman, lying in bed, in no apparent distress. She is currently afebrile. VITAL SIGNS: Currently stable. ABDOMEN: Soft, nondistended, nontender without current costovertebral angle tenderness. Kidneys are not palpable without hepatosplenomegaly. The patient is obese. For the remaining physical examination systems, please refer to the admission history and physical on the chart. LABORATORY STUDIES: CT scan of the abdomen and pelvis was done with contrast. It revealed a 1.4 cm left adrenal nodule. It also revealed a 5 mm left proximal ureteral stone, a 4 mm distal right ureteral stone with right-sided hydroureteronephrosis. Urine culture is pending. Urinalysis, however, showed many bacteria, 6-10 wbc's, 11-20 rbc's. The patient's sodium was low at 134. Her creatinine initially was 1.46 and yesterday was 1.04, today is pending. Calcium is low at 7.2. Magnesium low at 0. White blood cell count is 6360, hemoglobin 10.3, platelets are 114,000. ASSESSMENT: 1. Acute renal failure. It is improved. 2. Hyponatremia. 3. Anemia. 4. Thrombocytopenia. 5. Hypocalcemia. 6. Hypomagnesemia. 7. Urinary tract infection. 8. Microhematuria. 9. Bilateral ureteral stones. 10. Right-sided hydroureteronephrosis. 11. Left renal cyst. 12. Left adrenal nodule. PLAN: 1. Strain all the urine. 2. Intravenous antibiotics. 3. Intravenous hydration. 4. Admit as inpatient. I do suspect the patient will be here two midnights. 5. I will post the patient for a cystoscopy with retrograde pyelograms and insertion of probably bilateral ureteral stents. Should her followup urine culture be negative, right ureteroscopy may be performed at the same time. 6. I ordered bladder catheterization for urinalysis as well as urine culture due to the fact that her initial specimen was not clean-catch. Thank you very much for involving us in the care of your patient. We will be happy to follow her along with you as well as an outpatient. MD CHITRA Hagen/LINDSEY /[id number]
--- NOTE | 2018-08-24 18:50 | NUR ---
IV infiltrated, oncoming nurse notified. patient still needs to receive Mg IV second dose and potassium phos x 1 dose after Mg completed.
--- NOTE | 2018-08-24 19:45 | NUR ---
Received patient from day nurse, patient alert and oriented x3. patient made aware of the plan of care for the night, patient verbalized understanding. patient is currently stable will continue to monitor.new iv placed on left forearm. previous infiltrated
[2018-08-25] VITALS (7 sets, daily range): BP systolic 101–129; BP diastolic 67–78
--- NOTE | 2018-08-25 | NUR ---
potassium phosphate administered after the second dose of magnesium.
[2018-08-25] MEDS: METRONIDAZOLE 500MG/NS 100ML 100 ML IV SCH ×3 (05:32→22:18)
[2018-08-25] MEDS: CIPROFLOXACIN 400 MG/D5W 200ML 200 ML IV SCH ×2 (05:32→17:43)
[2018-08-25 06:07] LABS: BASOPHILS # (AUTO) 0.1 (0.0-0.1); BASOPHILS % 0.8 % (0.0-1.0); EOSINOPHILS # (AUTO) 0.2 (0.0-0.4); EOSINOPHILS % 3.3 % (0.0-6.0); HEMATOCRIT 30.8 % (34.2-44.1); HEMOGLOBIN 10.6 g/dL (12.0-16.0); LYMPHOCYTES # (AUTO) 1.3 (1.0-3.2); LYMPHOCYTES % 20.2 % (18.0-39.1); MEAN CORPUSCULAR HEMOGLOBIN 30.2 pg (28-32); MEAN CORPUSCULAR HGB CONC 34.4 g/dL (31-35); MEAN CORPUSCULAR VOLUME 87.7 fL (81-99); MONOCYTES # (AUTO) 1.2 (0.2-0.8); MONOCYTES % 18.7 % (4.4-11.3); NEUTROPHILS # (AUTO) 3.6 (2.1-6.9); NEUTROPHILS % 56.2 % (38.7-80.0); PLATELET COUNT 114 x10e3/uL (140-360); RED BLOOD COUNT 3.51 x10e6/uL (3.6-5.1); RED CELL DISTRIBUTION WIDTH 15.1 % (11.7-14.4)
[2018-08-25 06:28] LABS: ANION GAP 18.8 mmol/L (8-16); CALCIUM 7.1 mg/dL (8.4-10.2); CREATININE, SERUM 0.96 mg/dL (0.57-1.11); POTASSIUM 3.8 mmol/L (3.5-5.1)
[2018-08-25] MEDS: SODIUM CHLORIDE 0.9% 1000ML 1,000 ML IV SCH ×3 (07:51→23:51)
[2018-08-25] MEDS: HYDROXYZINE HCL 25 MG TAB PO SCH ×3 (09:00→20:33)
[2018-08-25] MEDS: METOPROLOL TARTRATE 25 MG TAB PO SCH ×2 (09:57→17:42)
[2018-08-25] MEDS: DILTIAZEM HCL 30 MG TAB PO SCH ×2 (09:57→17:42)
[2018-08-25] MEDS: AMLODIPINE BESYLATE 10 MG TAB PO SCH (09:57)
[2018-08-25] MEDS: MORPHINE SULFATE INJ 4 MG/ML INJ 1ML IV PRN ×3 (10:07→22:22)
--- NOTE | 2018-08-25 12:46 | NUR ---
Patient taken to OR at this time. A&Ox3. No distress.
[2018-08-25] MEDS ORDERED: IOPAMIDOL 610MG/1ML 300 MG/ML VIAL IV ONE (13:26)
[2018-08-25] MEDS ORDERED: B&O 60MG R/S 60 MG SUPP PR ONE (13:26)
--- NOTE | 2018-08-25 14:00 | NUR ---
ST Note: Pt off floor for procedure. Spoke with LONDON Luis, re: results of bedside swallow eval completed yesterday 08/24/18. Will f/u later today time permitting.
[2018-08-25] MEDS ORDERED: ACETAMINOPHEN/CODEINE 300MG - 30MG TAB PO PRN (14:15)
--- NOTE | 2018-08-25 14:26 | NUR ---
Report from [facility]AN at this time. Reported that 1400 dose of Flagyl was given in the OR. Two stents placed. Patient is DTV and came to PACU at 1415. States patient has no complaints of pain at this time.
[2018-08-25] MEDS ORDERED: SEVOFLURANE INHAL SOLN 250 ML PEN BTL ONE (14:34)
[2018-08-25] MEDS ORDERED: PROPOFOL IV EMULSION 10 MG/ML 20 ML VIAL ONE (14:34)
[2018-08-25] MEDS ORDERED: ONDANSETRON HCL INJ 2MG/ML 2ML 2 MG/ML VIAL ONE (14:34)
[2018-08-25] MEDS ORDERED: DEXAMETHASONE SOD PHOS INJ 4 MG/ML VIAL ONE (14:34)
[2018-08-25] MEDS ORDERED: FENTANYL CITRATE/PF 100MCG/2 ML INJ ONE (14:46)
--- NOTE | 2018-08-25 15:00 | NUR ---
Received patient from the PACU at this time back to the unit. Patient complains of no pain at this time. B&O suppository in place. Patient has voided in the bed and is requesting to be cleaned. Gown changed. Bed sanitized and cleaned with new linens applied.
[2018-08-25] MEDS ORDERED: ONDANSETRON HCL 4 MG ORAL DISINTEGRATING TAB PO PRN (16:45)
[2018-08-25] MEDS: LORATADINE 10 MG TAB PO SCH (17:39)
[2018-08-25] MEDS: ASPIRIN 81 MG CHEW TAB PO SCH (17:39)
[2018-08-25] MEDS: PANTOPRAZOLE SOD 40 MG TABEC PO SCH (17:41)
[2018-08-25] MEDS: TRIAMCINOLONE ACET 0.1% CREAM 15 GM TUBE TOP SCH ×2 (17:41→17:44)
[2018-08-25] MEDS: PHENAZOPYRIDINE HCL 100 MG TAB PO SCH (17:42)
[2018-08-25] MEDS: OXYBUTYNIN CHLORIDE 5 MG TAB PO SCH (17:42)
[2018-08-25] MEDS ORDERED: MAGNESIUM SULFATE 2GM/50ML 50 ML IV ONE (18:45)
[2018-08-25] MEDS ORDERED: SODIUM PHOSPHATE 3 MMOL/ML INJ IV ONE (18:45)
--- NOTE | 2018-08-25 19:00 | NUR ---
Received patient lying in bed in no acute distress, patient is alert and oriented, safety and fall precautions maintained as per hospital protocol: bed in lowest position and locked, needed items beside bed and call cavazos placed close to patient, patient instructed to use it to call nurses for any assistance needed patient verbalized understanding.post cysto., bilateral access in the groin, intact, patient urine being strained at this time.
[2018-08-25] MEDS ORDERED: PRAVASTATIN 20 MG TAB PO SCH (21:00)
[2018-08-25] MEDS ORDERED: POTASSIUM PHOSPHATE 30 MM in SODIUM CHLORIDE 0.9% 250ML 250 ML IV ONE (21:00)
[2018-08-26 00:21] VITALS: BP 97/64
[2018-08-26] MEDS ORDERED: BISACODYL 5 MG TAB EC PO ONE ×2 (00:30)
[2018-08-26 04:00] VITALS: BP 147/85
[2018-08-26] MEDS: MORPHINE SULFATE INJ 4 MG/ML INJ 1ML IV PRN ×2 (04:25→10:26)
[2018-08-26] MEDS: METRONIDAZOLE 500MG/NS 100ML 100 ML IV SCH (05:04)
[2018-08-26 05:09] LABS: BASOPHILS % 0.2 % (0.0-1.0); HEMATOCRIT 30.9 % (34.2-44.1); HEMOGLOBIN 10.7 g/dL (12.0-16.0); LYMPHOCYTES # (AUTO) 0.8 (1.0-3.2); LYMPHOCYTES % 12.4 % (18.0-39.1); MEAN CORPUSCULAR HEMOGLOBIN 30.1 pg (28-32); MEAN CORPUSCULAR HGB CONC 34.6 g/dL (31-35); MONOCYTES # (AUTO) 0.5 (0.2-0.8); MONOCYTES % 8.7 % (4.4-11.3); NEUTROPHILS # (AUTO) 4.7 (2.1-6.9); NEUTROPHILS % 76.9 % (38.7-80.0); PLATELET COUNT 149 x10e3/uL (140-360); RED BLOOD COUNT 3.55 x10e6/uL (3.6-5.1)
[2018-08-26 05:24] LABS: MAGNESIUM 2.3 MG/DL (1.3-2.1); PHOSPHORUS 3.9 MG/DL (2.3-4.7)
[2018-08-26 05:26] LABS: ANION GAP 20.5 mmol/L (8-16); CREATININE, SERUM 1.24 mg/dL (0.57-1.11); POTASSIUM 4.5 mmol/L (3.5-5.1)
--- NOTE | 2018-08-26 07:20 | NUR ---
patient was able to pee, about 200mls, patient condition throughout the night was stable, patient endorsed to next shift for continuity of care.
[2018-08-26] MEDS: CIPROFLOXACIN 400 MG/D5W 200ML 200 ML IV SCH (07:31)
[2018-08-26] MEDS: SODIUM CHLORIDE 0.9% 1000ML 1,000 ML IV SCH (07:51)
[2018-08-26 08:12] VITALS: BP 118/80
[2018-08-26 08:25] VITALS: BP 118/80
[2018-08-26] MEDS: ASPIRIN 81 MG CHEW TAB PO SCH (08:25)
[2018-08-26] MEDS: DILTIAZEM HCL 30 MG TAB PO SCH (08:25)
[2018-08-26] MEDS: HYDROXYZINE HCL 25 MG TAB PO SCH (08:26)
[2018-08-26] MEDS: OXYBUTYNIN CHLORIDE 5 MG TAB PO SCH (08:26)
[2018-08-26] MEDS: LORATADINE 10 MG TAB PO SCH (08:26)
[2018-08-26] MEDS: AMLODIPINE BESYLATE 10 MG TAB PO SCH (08:27)
[2018-08-26] MEDS: TRIAMCINOLONE ACET 0.1% CREAM 15 GM TUBE TOP SCH (08:27)
[2018-08-26] MEDS: METOPROLOL TARTRATE 25 MG TAB PO SCH (08:27)
[2018-08-26] MEDS: PHENAZOPYRIDINE HCL 100 MG TAB PO SCH (08:27)
[2018-08-26] MEDS: PANTOPRAZOLE SOD 40 MG TABEC PO SCH (08:27)
[2018-08-26] MEDS ORDERED: DOCUSATE SODIUM 100 MG CAP PO SCH (09:00)
[2018-08-26] MEDS ORDERED: TYLENOL # 31 EA PO (09:32)
[2018-08-26] MEDS ORDERED: CIPRO500 MG PO (09:32)
[2018-08-26] MEDS ORDERED: DITROPAN XL5 MG PO (09:32)
[2018-08-26] MEDS ORDERED: OYST-CAL-D 500MG TABLET PO SCH (09:45)
[2018-08-26 12:46] VITALS: BP 117/84
--- NOTE | 2018-08-27 04:00 | Discharge Summary ---
ADMISSION DIAGNOSES: Colitis, nausea, vomiting, diarrhea, dysphagia, distal right ureteral calculus, atrial fibrillation with RVR, acute urinary tract infection present on admission, severe weakness, fatigue, [id number] ambulatory dysfunction, former smoker with dyspnea on exertion, hypertension, osteoporosis. DISCHARGE DIAGNOSES: Colitis, nausea, vomiting, diarrhea, dysphagia, distal right ureteral calculus, atrial fibrillation with RVR, acute urinary tract infection present on admission, severe weakness, fatigue, ifkhg-mj-svjowme ambulatory dysfunction, former smoker with dyspnea on exertion, hypertension, osteoporosis, Providencia stuartii urinary tract infection, status post cysto with stent placement due to bilateral ureteral calculus. HISTORY: The patient has a history of ovarian cancer, head and neck cancer, lung cancer, hypertension, hyperlipidemia, GERD, fatigue, osteoporosis. SURGICAL HISTORY: Left lower lobe lobectomy, hysterectomy, lymph node and mass removal of the right neck. FAMILY HISTORY: The patient's mom had lung cancer. The patient's dad also had lung cancer. SOCIAL HISTORY: The patient admits to smoking about 3/4 pack a day x35 years and drinks alcohol socially. HOSPITAL COURSE: This 58-year-old female began having severe constipation on Tuesday, so she took Dulcolax with no relief. On Tuesday, she had uncontrolled diarrhea with dry heave. She developed associated severe weakness. She spoke to her primary care in [facility] and scheduled a barium enema and subsequent colonoscopy. Her last colonoscopy was at [place] about 1 month ago. On admission, GI was consulted. The patient started on Cipro, Flagyl, and Protonix. She was also started on IV fluids. CT of the abdomen showed 4 to 5 mm distal right ureteral calculus resulting in mild hydronephrosis and perinephric inflammation, a 4 to 5 mm left UPJ calculus without hydronephrosis, wall thickening and mild adjacent inflammation involving the colon. Postsurgical changes related to pelvic and retroperitoneal lymph node dissection, left adrenal nodule indeterminate, hepatic steatosis. The patient then had a KUB that showed nonobstructive bowel gas pattern. Her urine culture came back positive for Providencia stuartii. Antibiotics were adjusted per sensitivity report. She then had a bilateral cystoscopy with stent placement on 08/25/2018, although her lipase is slightly elevated, patient is tolerating diet well and not having any abdominal pain. She will discharge home with Cipro, Ditropan, and Tylenol No. 3 per Urology recommendation. The patient is feeling much better and says she is ready to discharge. She is no longer having diarrhea, nausea, or vomiting. Vital signs stable. The patient afebrile. She will follow up with Dr. Gloria and primary care in 1 to 2 weeks. Dictated by Bess Wolfe NP MD THAIS Doyle/MODL /[id number]
[2018-08-28] MEDS ORDERED: ALENDRONATE SODIUM 70 MG TAB PO SCH (06:30)
--- NOTE | 2018-10-02 04:42 | Operative Report ---
DATE OF PROCEDURE: 08/25/2018 SURGEON: Ethan Gloria MD PREOPERATIVE DIAGNOSES: 1. Bilateral hydronephrosis due to stone. 2. Urinary tract infection. POSTOPERATIVE DIAGNOSES: 1. Bilateral hydronephrosis due to stone. 2. Urinary tract infection. 3. Grade 2 rectocele for atrophic (senile) vaginitis. OPERATIONS PERFORMED: 1. Cystourethroscopy with bilateral ureteral catheterization and retrograde ureteropyelography (separate procedure was performed for the patient's urinary tract infection). 2. Interpretation of retrograde ureteropyelography. 3. Supervision of fluoroscopy, no radiologist present. 4. Cystourethroscopy with insertion of bilateral indwelling ureteral stents (separate procedure performed to relieve the hydronephrosis due to stone). 5. Pelvic examination under anesthesia. ANESTHESIA: General. COMPLICATIONS: None. CLINICAL SUMMARY: Please refer to consultation from the same hospitalization. OPERATIVE PROCEDURE IN DETAIL: Informed consent was verified. Michelle Gilmore was properly identified, taken to the operating room, placed on the cystoscopy table in supine position. Anesthesia was uneventfully begun. The patient was then carefully gently repositioned in the dorsal lithotomy position with all pressure points well padded. Her genitalia were prepared and draped in usual sterile fashion. The cystoscope sheath with obturator in place was atraumatically inserted. The patient's urethra and bladder were drained. Panendoscopy revealed at least grade 1 trabeculations, but there were no tumors, no stones, and no diverticula. Normally positioned and configured. Ureteral orifices were identified. A ureteral catheter was used to cannulate the right ureter and retrograde ureteropyelograms were performed. A guidewire was then placed into the right ureter and guided to the level of the patient's kidney and with cystoscopic and fluoroscopic guidance, a right-sided indwelling ureteral stent was placed to coil the patient's kidney as well as the patient's bladder. An identical combination of procedure was performed on the left-hand side. Interpretation of retrograde ureteropyelography contrast was instilled in retrograde fashion bilaterally. There was bilateral hydroureteronephrosis down to the level of the stones. The stent was in good position, coiled the patient's kidneys as well as the patient's bladder at the end of the case. The patient's bladder was drained. The cystoscope was withdrawn. Pelvic examination revealed atrophic vaginitis with grade 2 rectocele. There was no cystocele that could be appreciated. There were no obvious mucosal lesions. No abnormal palpable pelvic masses could be appreciated. The patient was then uneventfully reversed from anesthesia and taken to recovery room in stable condition. There were no complications to the procedure. She tolerated the procedure well. Plans will be to have the patient discharge home. Following that, we will bring her back to the operating room in an elective basis to perform bilateral ureteroscopy with holmium laser lithotripsy and indicate procedures. Ethan Gloria MD [place]/MODL /[id number]
== END 2018-08-26 12:56 | disposition home or self-care (01) | DRG 660 ==
LOC: ER 11:43 → ERHOLD 16:24 → OBSVTOIN 16:24 → INTOOBSV 16:24 → IMCU 20:45 → OBSVTOIN 08-24 10:30 → MED/SURG2 08-24 13:20
PROVIDERS: ADMIT Internal Medicine; ATTEND Internal Medicine
PROC: BT140ZZ Fluoroscopy of Kidneys, Ureters and Bladder using High Osmolar Contrast (ICD-10-PCS; principal; 2018-08-25 14:30)
PROC: 0T788DZ Dilation of Bilateral Ureters with Intraluminal Device, Via Natural or Artificial Opening Endoscopic (ICD-10-PCS; principal; 2018-08-25 14:30)
DX: N13.6 Pyonephrosis (principal); N20.1 Calculus of ureter; N17.9 Acute kidney failure, unspecified; N39.0 Urinary tract infection, site not specified; R13.10 Dysphagia, unspecified; M81.0 Age-related osteoporosis without current pathological fracture; Z87.891 Personal history of nicotine dependence; I48.91 Unspecified atrial fibrillation; Z79.01 Long term (current) use of anticoagulants; B96.89 Other specified bacterial agents as the cause of diseases classified elsewhere; K21.9 Gastro-esophageal reflux disease without esophagitis; Z85.43 Personal history of malignant neoplasm of ovary; K52.9 Noninfective gastroenteritis and colitis, unspecified; Z90.710 Acquired absence of both cervix and uterus; R26.9 Unspecified abnormalities of gait and mobility; Z85.89 Personal history of malignant neoplasm of other organs and systems; Z85.21 Personal history of malignant neoplasm of larynx; Z85.118 Personal history of other malignant neoplasm of bronchus and lung; K76.0 Fatty (change of) liver, not elsewhere classified; N28.1 Cyst of kidney, acquired; E83.42 Hypomagnesemia; D69.6 Thrombocytopenia, unspecified; E83.51 Hypocalcemia; E27.9 Disorder of adrenal gland, unspecified; E83.39 Other disorders of phosphorus metabolism; E66.9 Obesity, unspecified; Z68.30 Body mass index [BMI] 30.0-30.9, adult
CPT/HCPCS: 36415; 74018; 74177; 74420; 80048; 80053; 80061; 81001; 83036; 83690; 83735; 83970; 84100; 84443; 84550; 85025; 87086; 87186; 93005; 99284; C1758; C2617; G0378; J0500; J0696; J1100; J2270; J2405; J3010; J3410; J3475; J7030; J7040; J7050; Q9967

== ENCOUNTER → 2018-09-22 | Day surgery (SDC) | payer OTHER, MEDICARE ==
--- NOTE | 2018-09-20 09:52 | Diagnostic Imaging Report ---
PROCEDURE:X-RAY ABDOMEN - KUB COMPARISON:CT abdomen and pelvis 08/23/2018, images from retrograde pyelogram 08/25/2018. INDICATIONS:PREOPERATIVE XRAY FOR KIDNEY STONE SURGERY FINDINGS: Bilateral ureteral stents are noted. The proximal locking loops project over the expected region of the renal pelves. The distal locking loops project over the urinary bladder. 6 mm calculus overlies the proximal aspect of the left ureteral stent, at the expected region of the proximal ureter as seen on comparison study 08/23/2018. No additional calcifications are identified in the upper collecting systems or along side the ureteral stents. The bowel gas pattern is nonobstructive. Multiple pelvic surgical clips are unchanged. Surgical clips are also noted projecting over the midline vertebral column, likely related to prior lymph node dissection. Healing right lower rib fractures are again noted. No acute osseous abnormality. CONCLUSION: Appropriately positioned bilateral internal ureteral stents with a 6 mm calculus along side the left ureteral stent at the expected location of the proximal ureter. Dictated by: Teto Lindsay M.D. on 09/20/2018 at 9:56 Electronically approved by: Teto Lindsay M.D. on 09/20/2018 at 9:56
[~2018-09-22] MED LIST changes: +ALENDRONATE SOD70 MG PO; +ASPIR 8181 MG PO; +B&O 60MG R/S 60 MG SUPP PR ONE; +CEFTRIAXONE SOD 1 GM/NS 50 ML 50 ML IV ONE; +CIPRO500 MG PO; +COLCRYS0.6 MG PO; +DEXAMETHASONE SOD PHOS INJ 4 MG/ML VIAL ONE; +DEXILANT30 MG PO; +DITROPAN XL5 MG PO; +FENTANYL CITRATE/PF 100MCG/2 ML INJ ONE; +GENTAMICIN 80MG/NS 100 ML 100 ML IV ONE; +HYDROXYZINE HCL25 MG PO; +IBUPROFEN400 MG PO; +IOPAMIDOL 610MG/1ML 300 MG/ML VIAL IV ONE; +LIDOCAINE HCL 2% LOCAL INJ 5 ML SDV VIAL INJ ONE; +MYRBETRIQ50 MG PO; +ONDANSETRON HCL INJ 2MG/ML 2ML 2 MG/ML VIAL ONE; +PRAVASTATIN SOD40 MG PO; +PROPOFOL IV EMULSION 10 MG/ML 20 ML VIAL ONE; +SEVOFLURANE INHAL SOLN 250 ML PEN BTL ONE; +TRIAMCINOLONE A15 G1 TOP; +TYLENOL # 31 EA PO; +TYLENOL WITH C1 EACH PO; +[UNRECOGNIZED DRUG - OTHER]
--- OUTSIDE RECORDS SUMMARY | 2018-09-22 10:27 | XMS REPORT | Clinical Summary ---
Author Author [facility] Organization [facility] Address Unknown Phone Unavailable Care Team Providers Care Billing Auditor Name Role Phone Gianna Mendosa MD PCP Allergies No Known Allergies Medications End Date Status Medication Sig Dispensed Refills Start Date Active ASPIRIN 81 mg Tab Take by 0 mouth. Active acetaminophen (TYLENOL) Insert 1 12 0 650 mg rectal suppository Suppository Suppository 7 rectally every 6 hours as needed for Fever > 100.5. Active triamcinolone (KENALOG) Apply to 80 g 6 0.1 % affected area 8 ointmentIndications: 2 times Pruritus, Itching daily. Active amLODIPine (NORVASC) 10 Take 1 tablet 90 tablet 2 mg tabletIndications: by mouth 8 Essential hypertension daily. with goal blood pressure less than 130/80 Active pravastatin (PRAVACHOL) Take 1 tablet 90 tablet 1 40 mg tabletIndications: by mouth at 8 Pure hypercholesterolemia bedtime nightly. Active dexlansoprazole Take 1 90 capsule 1 (DEXILANT) 30 mg delayed capsule by 8 release mouth daily. capsuleIndications: Gastroesophageal reflux disease, esophagitis presence not specified Active traMADol (ULTRAM) 50 mg Take 1 tablet 60 tablet 0 tabletIndications: Rib by mouth 2 8 pain on right side times daily as needed for Pain. Active cetirizine (ZYRTEC) 10 mg Take 1 tablet 90 tablet 3 tabletIndications: by mouth 8 Seasonal allergies daily. Active polyethylene glycol Add lukewarm 4000 mL 0 (GOLYTELY) [id number] drinking 9 -5.86 gram oral water to the solutionIndications: fill aden (4 Adenomatous polyp of liters) and ascending colon shake. Drink as directed by your doctor.. Active ibuprofen (MOTRIN) 800 mg Take 1 tablet 60 tablet 1 tabletIndications: Right by mouth 9 sided sciatica every 8 hours as needed for Pain. Active metoprolol tartrate Take 1 tablet 180 tablet 2 (LOPRESSOR) 25 mg by mouth 2 9 tabletIndications: times daily. Essential hypertension with goal blood pressure less than 130/80 Active hydrOXYzine (ATARAX) 25 Take 1 tablet 30 tablet 0 mg tabletIndications: by mouth 3 9 Itching times daily as needed for Itching. Active alendronate (FOSAMAX) 70 Take 1 tablet 12 tablet 1 mg tabletIndications: once a week 9 Senile osteoporosis on empty stomach with 8 oz of water and remain upright for 30 minutes. Active polyethylene glycol Add lukewarm 4000 mL 0 (StarsVu) [id number] drinking 9 -5.86 gram oral water to the solutionIndications: fill aden (4 Occult blood in stools liters) and shake. Drink as directed by your doctor.. 01/18/2018 Discontinued hydrOXYzine (ATARAX) 25 Take 1 tablet 30 tablet 0 mg tabletIndications: by mouth 3 6 Itching times daily as needed for Itching. 12/06/2017 Discontinued triamcinolone (KENALOG) Apply to 80 g 6 0.1 % affected area 6 ointmentIndications: 2 times Pruritus daily. 12/06/2017 Discontinued bisacodyl (DULCOLAX) 5 mg Take 2 30 tablet 0 enteric coated tablet tablets by 7 mouth daily. 12/06/2017 Discontinued gabapentin (NEURONTIN) Take 1 90 capsule 0 300 mg capsule by 7 capsuleIndications: Lung mouth 3 times mass daily as needed for Pain. 12/06/2017 Discontinued traMADol (ULTRAM) 50 mg Take 2 60 tablet 0 tabletIndications: Lung tablets by 7 mass mouth every 8 hours as needed for Pain. 02/28/2018 Discontinued cetirizine (ZYRTEC) 10 mg Take 1 tablet 90 tablet 3 tabletIndications: by mouth 7 Chronic seasonal allergic daily. rhinitis due to other allergen 10/28/2017 Discontinued metoprolol tartrate Take 1 tablet 180 tablet 0 (LOPRESSOR) 25 mg by mouth 2 8 tabletIndications: times daily. Essential hypertension with goal blood pressure less than 130/80 10/28/2017 Discontinued amLODIPine (NORVASC) 10 Take 1 tablet 90 tablet 0 mg tabletIndications: by mouth 8 Essential hypertension daily. with goal blood pressure less than 130/80 02/28/2018 Discontinued pravastatin (PRAVACHOL) Take 1 tablet 90 tablet 1 40 mg tabletIndications: by mouth at 8 Pure hypercholesterolemia bedtime nightly. 02/28/2018 Discontinued dexlansoprazole Take 1 90 capsule 1 (DEXILANT) 30 mg delayed capsule by 8 release mouth daily. capsuleIndications: Gastroesophageal reflux disease, esophagitis presence not specified 05/08/2018 Discontinued metoprolol tartrate Take 1 tablet 60 tablet 2 (LOPRESSOR) 25 mg by mouth 2 8 tabletIndications: times daily. Essential hypertension with goal blood pressure less than 130/80 02/28/2018 Discontinued amLODIPine (NORVASC) 10 Take 1 tablet 30 tablet 2 mg tabletIndications: by mouth 8 Essential hypertension daily. with goal blood pressure less than 130/80 02/28/2018 Discontinued traMADol (ULTRAM) 50 mg Take 1 tablet 60 tablet 0 tabletIndications: Rib by mouth 2 8 pain on right side times daily as needed for Pain. 06/21/2018 Discontinued hydrOXYzine (ATARAX) 25 Take 1 tablet 30 tablet 0 mg tabletIndications: by mouth 3 8 Itching times daily as needed for Itching. 05/19/2018 Discontinued metoprolol tartrate Take 1 tablet 60 tablet 2 (LOPRESSOR) 25 mg by mouth 2 9 tabletIndications: times daily. Essential hypertension with goal blood pressure less than 130/80 Status Hospital, Clinic, or Ordered Dose Route Frequency Start End Date Other Facility Date Administered Medication Ended lidocaine 1 % (XYLOCAINE) 0.5 mL IJ ONCE 05/23/19 injection 0.5 19 9 mLIndications: Bilateral carpal tunnel syndrome Ended lidocaine 1 % (XYLOCAINE) 0.5 mL IJ ONCE 05/23/19 injection 0.5 19 9 mLIndications: Bilateral carpal tunnel syndrome Ended triamcinolone acetonide 40 mg OTHER ONCE 05/23/19 (KENALOG-40) injection 40 19 9 mgIndications: Bilateral carpal tunnel syndrome Ended triamcinolone acetonide 40 mg OTHER ONCE 05/23/19 (KENALOG-40) injection 40 19 9 mgIndications: Bilateral carpal tunnel syndrome Active Problems Problem Noted Date Hypothyroidism 01/12/2018 Simple hepatic cyst 07/19/2017 Atrophy of right kidney 07/19/2017 Lung mass 11/11/2016 MDTB Notes 09/28/2016 Overview: Pulmonary Multidisciplinary Conference Note Date of Conference: 09/28/2016 Discussion held with: Oncology Pathology Radiation Oncology Radiology Thoracic Surgery Discussion regarding: Need for diagnostic procedure: No Diagnosis of cancer: Yes For patients with a diagnosis of cancer: The pathology shows: LUNG Mass LEFT LOWER LOBE, CT-GUIDED CORE BIOPSY:MUCINOUS ADENOCARCINOMA Brief description of clinical scenario: 56 yr old female patient , Unknown primary head and neck cancer T0N1M0 SqCCa R neck ,Hx of ovarian cancer s/p surgery, L pleural based growing lung nodule, S/p IR biopsy 09/14 , positive for mucinous Adenocarcinoma . General treatment plan: Complete staging scans, PFT Procedures/Tests to be scheduled: PET, PFT Consults to be ordered: CT surgery , Radiation Oncology Scheduled follow-up: Yes Patient contacted regarding plan: Yes Terry Griffiths, PILAR, METHODOLOGIST-C, Nurse Practitioner, [facility] , ID # [id number] Pager # [phone] CULLEN 05/17/17 Ms. 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 Today's question -Need for completion lobectomy , adjuvant therapy Plan -Continue surveillance follow up with Oncology Gastroesophageal reflux disease without esophagitis 06/02/2015 Hyperlipidemia 06/02/2015 Head and neck cancer 04/29/2015 Overview: MDTB 10/19 56 y/o F with hx of serous borderline ovarian tumor 2010 s/p hysterectomy (LUCIO) and T0N1M0 SCC of Head and neck 05/2015 (LUCIO after therapeutic right neck dissection) found to have new LLL lung nodule on surveillance PET -CT. Biopsy c/w mucinous adenocarcinoma TTF 1 negative, CK7/20+. Pathology reviewed - feel this is unlikely recurrence of original ovarian tumor nor new lung primary given IHC stains. Per radiology mucinous adenocarcinoma not very PET AVID and therefore PET CT not best test to assess for additional sites of disease. Recommend GI eval for EGD/colo to first rule out GI source given CK7/20+. Referral already pending. If no GI primary identified, then would favor wedge resection over SBRT to obtain more path and run more stains. Patient has already been seen by Rad onc 10/14. Will hold on simulation until patient meets with CTS. ECOG 0 with normal PFTs so should be a good candidate for wedge resection. Patient scheduled to meet with thoracic surgery on 10/20. If not a good candidate for wedge resection, then should be a good candidate for SBRT. Patient was discussed at [facility] on 07/10/15: Diagnosis: TxN1M0 SCC unknown primary, right neck metastasis Tx: Right neck dissection (06/11/15) Recommendation: Repeat DL in approximately 6 months for hypopharyngeal lesion, observation for unknown primary Addition (MDTB 05/29/15) Given lack of primary, we will proceed with a neck dissection. If the disease is truly N1, this will therapeutic. If it turns out to be N2, it will be diagnostic and further treatment will be necessary. Tumor Board 05/01/2015 Diagnosis: TxN1M0 SCC unknown primary, right neck metastasis HPI: 54y.o. female with a history of ovarian cancer s/p ex lap, supracervical hysterectomy, BSO, omtentectomy, and left ureterolysis in 05/2009. She presented to clinic a right-sided submandibular swelling that started approximately last January. US 01/2015 demonstrated Heterogeneous hypovascular mass next to the right mandibular gland measuring up to 2.3 cm. Bx 03/24/2015 showed squamous cell carcinoma. She reports that the swelling has decreased in size since biopsy. States she just quit smoking approximate 20 pack year history, denies chewing tobacco use. PMH: ovarian cancer PSH: ex-lap, supracervical hysterectomy, BSO, ometemtectomy, L ureterolysis All: NKDA Medications: hydroxyzine, pravastatin, metoprolol, amlodipine, dexlansoprazole, ASA 81mg SH: former 20 pack year history smoking, quit 2 weeks ago, drinks 3-4 mixed drinks a week FHx: nine Labs: Na 136; H/H 14.9/43.6 Physical Exam: General: Well-developed, well-groomed, and well-nourished; no distress. Strong voice. Skin: No suspicious lesions. No rashes. No abnormal moles. Head/face: Normocephalic. Normal facial tone. Ears: Tympanic membranes and external auditory canals are clear. No effusions, perforations, or retraction. Nose/Nasopharynx: No lesions, masses, or discharge. No abnormal lymphoid tissue. Oral cavity/Oropharynx: No lesions, masses, exudate, or trismus. Oral tongue, base of tongue, floor of mouth, and tonsillar fossae are soft to palpation. Tongue is fully mobile. Soft palate elevates symmetrically. Hypopharynx/Larynx: No lesions or masses involving the supraglottis, glottis, subglottis, posterior hypopharyngeal wall, or pyriform sinuses. True vocal cords are fully mobile. No pooling of secretions in the pyriform sinuses or post-cricoid region. Larynx elevates normally during phonation. Neck: Right sided level II mass appx 1x1cm, nontender, nonerythematous, firm present. The thyroid is not enlarged and has no palpable nodules. Full range of motion. Normal laryngeal crepitus. Imaging: PET CT 04/28/2015 1. Right level IIA necrotic hypermetabolic lymph node consistent with diagnosed squamous cell carcinoma. 2. Specifically no hypermetabolism within the larynx and pharynx to identify site of primary tumor. 3. Left lower lobe nodule is not hypermetabolic and could represent subsegmental atelectasis. Attention on follow-up. 4. Right nonobstructing 6 mm UVJ stone. Left-sided nonobstructing nephrolithiasis. 5. No evidence of additional abnormal hypermetabolism within the chest, abdomen or pelvis. CT neck with contrast 04/28/2015: 1. Right level 2A approximately 1.9 cm maximum diameter metastatic necrotic cervical lymphadenopathy. 2. Mild prominence of the nasopharyngeal adenoid tissue and lingual tonsils without discrete mass. Pathology (04/10/2015) PATHOLOGIC DIAGNOSIS RIGHT SUBMANDIBULAR MASS, IMAGE-GUIDED CORE NEEDLE BIOPSY: - SQUAMOUS CELL CARCINOMA (SEE MICROSCOPIC DESCRIPTION) Plan: Direct laryngoscopy, biopsies, tonsillectomy; will perform neck dissection if no primary encountered Mass of submandibular region 02/07/2015 HTN (hypertension) 07/31/2012 Ovarian cancer 06/03/2010 Overview: Stage 1A serous borderline ovarian CA s/p STH/BSO (supracervical) 05/200905/19/09 06/09/09 11/17/09 12/02/09 03/09/10 09/08/10 12/14/10 03/08/11 05/10/11 06/15/11 12/07/11 05/22/12 11/17/12 CA 125 340.8 (H) 270.5 (H) 6.9 6.8 8.1 6.5 6.2 5.9 8.0 5.4 7.4 5.7 5.9 Encounters Care Team Description Date Type Specialty Morris Shore, Fellow() Occult blood in stools (Primary Dx) 08/30/2018 Office Visit Gastroenterology 08/30/2018 Travel Gianna Mendosa MD Breast cancer screening 08/07/2018 Ancillary Radiology Procedure 08/07/2018 Travel Brandi Frederick MD Head and neck cancer (Primary Dx) 07/10/2018 Office Visit Ent-Otolaryngology Shelia Stephens, Fellow(MD) Irma Allred MD Lung mass (Primary Dx); Malignant neoplasm of ovary, unspecified laterality; Head and neck cancer 07/06/2018 Office Visit Oncology Irma Allred MD Malignant neoplasm of ovary, unspecified laterality; Lung mass; Head and neck cancer 06/29/2018 Ancillary Radiology Procedure Gianna Mendosa MD Senile osteoporosis (Primary Dx); Encounter to discuss test results; Breast cancer screening; Polyp of transverse colon, unspecified type 06/22/2018 Office Visit Family Practice 06/22/2018 Travel Rafael Granados MD Itching 06/21/2018 Refill [facility] Gianna Mendosa MD Early onset menopause 06/05/2018 Hospital Radiology Encounter Joseph McintyreArleyTismaty Colonoscopy 05/31/2018 Telephone Gianna Mendosa MD Bilateral carpal tunnel syndrome (Primary Dx) 05/22/2018 Office Visit [facility] Gianna Mendosa MD Right sided sciatica (Primary Dx); Essential hypertension with goal blood pressure less than 130/80; Early onset menopause; Bilateral carpal tunnel syndrome 05/19/2018 Office Visit [facility] 05/19/2018 Travel Rafael Granados MD Essential hypertension with goal blood pressure less than 130/80 05/08/2018 Refill [facility] Ruth Pineda, Physician Gianna Mendosa MD Tan, Faye C, MD Bilateral carpal tunnel syndrome (Primary Dx) 05/01/2018 Procedure Visit Physical Medicine and Rehab 05/01/2018 Travel Joseph Mcintyre Colonoscopy 04/21/2018 Telephone Rafael Granados MD Adenomatous polyp of ascending colon (Primary Dx) 04/21/2018 Orders Only [facility] Joseph Mcintyre Colonoscopy 04/19/2018 Telephone Gianna Mendosa MD Flu vaccine need (Primary Dx); Essential hypertension with goal blood pressure less than 130/80; Pure hypercholesterolemia; Gastroesophageal reflux disease, esophagitis presence not specified; Rib pain on right side s/p fall; Seasonal allergies; Bilateral carpal tunnel syndrome; Hx of colonic polyp 02/28/2018 Office Visit [facility] Gianna Mendosa MD Bilateral carpal tunnel syndrome 02/28/2018 Orders Only [facility] 02/28/2018 Travel Teto Montes MD Head and neck cancer (Primary Dx) 02/06/2018 Office Visit Ent-Otolaryngology Trudy Nelson Abnormal auditory perception of right ear (Primary Dx); Tinnitus of right ear; Bilateral sensorineural hearing loss 02/06/2018 Hospital Audiology Encounter Rafael Granados MD Itching 01/18/2018 Refill [facility] Chas Flores, Fellow(MD) Marlys Cee MD Lu, Jinyu, Fellow(MD) Malignant neoplasm of ovary, unspecified laterality (Primary Dx); Lung mass; Head and neck cancer; Hypothyroidism, unspecified type 01/12/2018 [facility]; Squamous cell carcinoma of head and neck 01/06/2018 Ancillary Radiology Procedure Rafael Granados MD 12/06/2017 Ancillary Radiology Procedure Rafael Granados MD Essential hypertension (Primary Dx); Rib pain on right side s/p fall; Head and neck cancer; Itching; Pruritus; Gastroesophageal reflux disease without esophagitis; Dietary counseling for Above / Below Normal BMI; Exercise counseling for Above Normal BMI Only! 12/06/2017 Office Visit Family Practice Teto Montes MD Squamous cell carcinoma of head and neck (Primary Dx); Hearing loss of right ear, unspecified hearing loss type 11/28/2017 Office Visit Ent-Otolaryngology Teto Montes MD Hearing loss of right ear, unspecified hearing loss type 11/28/2017 Orders Only Ent-Otolaryngology Dyan Alvarado MD Malignant neoplasm of lower lobe of left lung 11/06/2017 Orders Only Pulmonology Rafael Granados MD Essential hypertension with goal blood pressure less than 130/80 10/28/2017 Refill Family Practice after 09/21/2017 Immunizations Name Administration Dates Next Due Influenza Vaccine 12/30/2014, 12/31/2013 Influenza Vaccine, 03/17/2017, 01/24/2017 (Deferred: Contraindication Seasonal, Injectable - X ray treatments in the past 3 months) Influenza, 02/28/2018 Vaccine<FLUCELVAX>(Multi- Dose) PPV 23 Pneumococcal 04/16/2015 Polysaccaride Pneumococcal 13-valent 10/04/2016 conj 0.5 mL injection Tdap Tetanus, diphtheria, 09/01/2012 acellular pertussis Vaccine Family History Medical History Relation Name Comments Cancer Father Cancer Mother Hypertension Mother Stroke Mother Relation Name Status Comments Brother Alive Father Maternal Grandfather Maternal Grandmother Mother Paternal Grandfather Paternal Grandmother Sister Alive x2 Social History Date Tobacco Use Types Packs/Day Years Used Former Smoker 30 Smokeless Tobacco: Never Quit: 04/29/2015 Used Tobacco Cessation: Counseling Given: No Drinks/Week oz/Week Comments Alcohol Use 6 Standard drinks or equivalent 3.6 3-4 mixed drinks a week Yes Food Insecurity Answer Date Recorded Within the past 12 months, you worried that your Never true 12/06/2017 food would run out before you got money to buy more. Within the past 12 months, the food you bought Never true 12/06/2017 just didn't last and you didn't have money to get more. Sex Assigned at Date Recorded Not on file Industry Job Start Date Occupation Not on file Not on file Not on file Travel End Travel History Travel Start No recent travel history available. Last Filed Vital Signs Reading Time Taken Comments Vital Sign 100/71 08/30/2018 12:40 PM CDT Blood Pressure 74 08/30/2018 12:40 PM CDT Pulse 36.7 C (98.1 F) 08/30/2018 12:40 PM CDT Temperature 18 08/30/2018 12:40 PM CDT Respiratory Rate - - Oxygen Saturation - - Inhaled Oxygen Concentration 74.4 kg (164 lb) 08/30/2018 12:40 PM CDT Weight 160 cm (5' 3") 08/30/2018 12:40 PM CDT Height 29.05 08/30/2018 12:40 PM CDT Body Mass Index Plan of Treatment Care Team Description Date Type Specialty Gianna Mendosa MD [address] [place] [address] [phone] [facility] 10/16/2018 Office Visit [facility] 11/13/2018 Appointment Morris Shore, Fellow() Department of Internal Medicine - [address] [place] [address] CM TEACHING 11/24/2018 Appointment Gastroenterology Irma Allred MD [address] [address] [phone] 12/22/2018 Lab Appointment Lab Irma Allred MD [address] [place] [address] [place] [address] [phone] 01/03/2019 Ancillary Radiology Procedure Irma Allred MD [address] [place] [address] [place] [address] 01/03/2019 Ancillary Radiology Procedure Health Maintenance Due Date Last Done Comments Colonoscopy 1yr 10/28/2017 10/28/2016 Cervical Cancer Scrn (3 06/10/2018 06/11/2015, 06/06/2015, 05/29/2015, Yrs) Additional history exists Breast Cancer Scrn 08/08/2019 08/07/2018, 08/01/2017, 07/12/2016, (Yearly) Additional history exists Procedures Comments Procedure Name Priority Date/Time Associated Diagnosis MAMMOGRAM BILAT SCREEN Routine 08/07/2018 Breast cancer screening DIGITAL 9:[address] SOFT TISSUE NECK W Routine 06/29/2018 Malignant neoplasm of CONTRAST 11:20 AM CDT ovary, unspecified laterality Lung mass Head and neck cancer CT CHEST W CONTRAST Routine 06/29/2018 Malignant neoplasm of 11:20 AM CDT ovary, unspecified laterality Lung mass Head and neck cancer COMPREHENSIVE METABOLIC Routine 06/29/2018 Head and neck cancer PANEL 9:11 AM CDT Hypothyroidism, unspecified type CBC/DIFF Routine 06/29/2018 Head and neck cancer 9:11 AM CDT Hypothyroidism, unspecified type BONE DENSITY (DUAL Routine 06/05/2018 Early onset menopause PHOTON) 11:55 AM CDT COLONOSCOPY-DIRECT Routine 05/24/2018 Adenomatous polyp of SCHEDULING ascending colon EMG CONSULT OUTPATIENT Routine 05/01/2018 Bilateral carpal tunnel 8:[address] SOFT TISSUE NECK W Routine 01/06/2018 Squamous cell carcinoma CONTRAST 11:29 AM CDT of head and neck CT ABDOMEN AND PELVIS Routine 01/06/2018 Head and neck cancer CONTRAST 11:[address] CHEST W CONTRAST Routine 01/06/2018 Head and neck cancer 11:29 AM CDT THYROID STIMULATING Routine 01/06/2018 HORMONE (TSH) 8:12 AM CDT CBC/DIFF STAT 01/06/2018 Head and neck cancer 8:12 AM CDT COMPREHENSIVE METABOLIC STAT 01/06/2018 Head and neck cancer PANEL 8:12 AM CDT Lung mass XRAY RIBS UNILATERAL 2 Routine 12/06/2017 Rib pain on right side VIEWS 11:00 AM CDT s/p fall after 09/21/2017 Results * MAMMOGRAM BILAT SCREEN DIGITAL (08/07/2018 9:49 AM CDT) Specimen Impressions Performed At IMPRESSION: BENIGN SMS There is no mammographic evidence of malignancy. A 1 year screening mammogram is recommended. This document has been electronically signed. Herbert Meng M.D. et/penrad:08/07/2018 10:26:05 Physician Scientist: Ms. Macy Faulkner RT(R)(M), [facility] letter sent: Mammography Normal Mammogram BI-RADS: 2 Benign G0202 z12.31 Narrative Performed At #[id number] - MAMMOGRAM BILAT SCREEN DIGITAL SMS BILATERAL DIGITAL SCREENING MAMMOGRAM WITH CAD: 08/07/2018 CLINICAL: Screening for malignancy. Comparison is made to exams dated:08/01/2017, 07/12/2016 [facility], and 02/03/2015 [facility]. There are scattered fibroglandular elements in both breasts that could obscure a lesion on mammography. Current study was also evaluated with a Computer Aided Detection (CAD) system. There are benign appearing calcifications in both breasts. No significant masses, calcifications, or other findings are seen in either breast. There has been no significant interval change. Procedure Note Interface, Rad/Mammog In - 08/07/2018 11:05 AM CDT #[id number] - MAMMOGRAM BILAT SCREEN DIGITAL BILATERAL DIGITAL SCREENING MAMMOGRAM WITH CAD: 08/07/2018 CLINICAL: Screening for malignancy. Comparison is made to exams dated: 08/01/2017, 07/12/2016 [facility], and 02/03/2015 [facility]. There are scattered fibroglandular elements in both breasts that could obscure a lesion on mammography. Current study was also evaluated with a Computer Aided Detection (CAD) system. There are benign appearing calcifications in both breasts. No significant masses, calcifications, or other findings are seen in either breast. There has been no significant interval change. IMPRESSION IMPRESSION: BENIGN There is no mammographic evidence of malignancy. A 1 year screening mammogram is recommended. This document has been electronically signed. Herbert eMng M.D. et/penrad:08/07/2018 10:26:05 Physician Scientist: Ms. Macy Faulkner RT(R)(M), [facility] letter sent: Mammography Normal Mammogram BI-RADS: 2 Benign G0202 z12.31 Performing Organization Address City/State/Zipcode Phone Number SMS * CT CHEST W CONTRAST (06/29/2018 11:20 AM CDT) Only the most recent of 2 results within the time period is included. Specimen Impressions Performed At IMPRESSION: SMS 1.Stable postsurgical changes from left lower lobe wedge resection for mucinous adenocarcinoma. No findings to suggest local recurrence. 2.Multiple groundglass and solid pulmonary nodules throughout both lungs are stable from May 2017 and remain indeterminate. Recommend continued attention on follow-up evaluations per oncology protocol. Dictated By: Ismael Canela MD, 06/29/2018 3:05 PM I have reviewed the study and agree with the findings in this report. Signed By: Rosa Elena Nails MD, 06/29/2018 3:42 PM Narrative Performed At EXAM: CT Chest WITH contrast SMS INDICATION: lung cancer s/p resection. 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 COMPARISON: Chest CT from 01/06/2018 TECHNIQUE: Chest was scanned utilizing a multidetector helical scanner from the lung apex through the level of the adrenal glands after administration of IV contrast. Coronal and sagittal reformations were obtained. Routine protocol was performed. IV CONTRAST: 149.6 mL Omnipaque 300 RADIATION DOSE: Total DLP: 305.89 mGy*cm Estimated effective dose: (DLP x 0.014 x size factor) mSv COMPLICATIONS: None FINDINGS: LINES/ TUBES: None. LUNGS AND AIRWAYS:Status post left lower lobe wedge resection with stable associated linear and masslike consolidation measuring up to 1.7 cm in maximal dimension with associated suture line and calcifications. Multiple solid and groundglass nodules throughout both lungs are stable from May 2017, for example: *Right upper lobe 4 mm groundglass nodule (series 3 image 41), previously measured 3 mm. *Right lower lobe 3 mm groundglass nodule (series 3 image 41), previous measured 3 mm. *Right lower lobe 8 mm pleural-based groundglass nodular opacity (series 3 image 53), previous measured 8 mm. *Left upper lobe lingual 4 mm solid nodule (series 3 image 55), previously measured 4 mm. *Left upper lobe 5 mm solid nodule with adjacent scarring (series 3 image 67), previous measured 5 mm. *Left upper lobe 4 mm solid nodule with adjacent scarring is less conspicuous (series 3 image 70), previously measured 6 mm. Mild bilateral centrilobular emphysema. Trachea and bilateral central bronchi are patent and clear.. PLEURA: The pleural spaces are clear. HEART AND MEDIASTINUM:The visualized thyroid gland is normal. No mediastinal, hilar or axillary lymphadenopathy. The heart is normal in size. Trace fluid in the pericardial recesses.. Moderate atherosclerotic calcifications of coronary arteries. Thoracic aorta is unremarkable.. UPPER ABDOMEN: Persistent diffuse low hepatic attenuation, compatible with hepatic steatosis. Ill-defined hypoattenuating lesions within the right hepatic dome (series 3 image 80), remains poorly evaluated given size however statistically likely represent hepatic cysts. Hypoattenuating left adrenal nodule measures up to 1.2 cm, stable from 2009 and likely benign. Right renal atrophy with compensatory left renal hypertrophy. Persistent moderate to severe stenosis of the right renal artery origin secondary to atherosclerotic disease. Remaining visualized portions of the upper abdomen are unremarkable. BONES: No acute osseous abnormalities. Few healing right inferior rib fractures. Stable chronic compression deformities of the T12 and L1 vertebral bodies. SOFT TISSUES: Unremarkable. Procedure Note Interface, Rad/Mammog In - 06/29/2018 3:47 PM CDT EXAM: CT Chest WITH contrast INDICATION: lung cancer s/p resection. 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 COMPARISON: Chest CT from 01/06/2018 TECHNIQUE: Chest was scanned utilizing a multidetector helical scanner from the lung apex through the level of the adrenal glands after administration of IV contrast. Coronal and sagittal reformations were obtained. Routine protocol was performed. IV CONTRAST: 149.6 mL Omnipaque 300 RADIATION DOSE: Total DLP: 305.89 mGy*cm Estimated effective dose: (DLP x 0.014 x size factor) mSv COMPLICATIONS: None FINDINGS: LINES/ TUBES: None. LUNGS AND AIRWAYS: Status post left lower lobe wedge resection with stable associated linear and masslike consolidation measuring up to 1.7 cm in maximal dimension with associated suture line and calcifications. Multiple solid and groundglass nodules throughout both lungs are stable from May 2017, for example: * Right upper lobe 4 mm groundglass nodule (series 3 image 41), previously measured 3 mm. * Right lower lobe 3 mm groundglass nodule (series 3 image 41), previous measured 3 mm. * Right lower lobe 8 mm pleural-based groundglass nodular opacity (series 3 image 53), previous measured 8 mm. * Left upper lobe lingual 4 mm solid nodule (series 3 image 55), previously measured 4 mm. * Left upper lobe 5 mm solid nodule with adjacent scarring (series 3 image 67), previous measured 5 mm. * Left upper lobe 4 mm solid nodule with adjacent scarring is less conspicuous (series 3 image 70), previously measured 6 mm. Mild bilateral centrilobular emphysema. Trachea and bilateral central bronchi are patent and clear.. PLEURA: The pleural spaces are clear. HEART AND MEDIASTINUM: The visualized thyroid gland is normal. No mediastinal, hilar or axillary lymphadenopathy. The heart is normal in size. Trace fluid in the pericardial recesses.. Moderate atherosclerotic calcifications of coronary arteries. Thoracic aorta is unremarkable.. UPPER ABDOMEN: Persistent diffuse low hepatic attenuation, compatible with hepatic steatosis. Ill-defined hypoattenuating lesions within the right hepatic dome (series 3 image 80), remains poorly evaluated given size however statistically likely represent hepatic cysts. Hypoattenuating left adrenal nodule measures up to 1.2 cm, stable from 2009 and likely benign. Right renal atrophy with compensatory left renal hypertrophy. Persistent moderate to severe stenosis of the right renal artery origin secondary to atherosclerotic disease. Remaining visualized portions of the upper abdomen are unremarkable. BONES: No acute osseous abnormalities. Few healing right inferior rib fractures. Stable chronic compression deformities of the T12 and L1 vertebral bodies. SOFT TISSUES: Unremarkable. IMPRESSION IMPRESSION: 1. Stable postsurgical changes from left lower lobe wedge resection for mucinous adenocarcinoma. No findings to suggest local recurrence. 2. Multiple groundglass and solid pulmonary nodules throughout both lungs are stable from May 2017 and remain indeterminate. Recommend continued attention on follow-up evaluations per oncology protocol. Dictated By: Ismael Canela MD, 06/29/2018 3:05 PM I have reviewed the study and agree with the findings in this report. Signed By: Rosa Elena Nails MD, 06/29/2018 3:42 PM Performing Organization Address City/State/Zipcode Phone Number SMS * CT SOFT TISSUE NECK W CONTRAST (06/29/2018 11:20 AM CDT) Only the most recent of 2 results within the time period is included. Specimen Impressions Performed At IMPRESSION: SMS No concerning adenopathy in neck. Stable postoperative changes from right neck dissection. Dictated By: Miladys Acuna MD, 06/29/2018 1:52 PM I have reviewed the study and agree with the findings in this report. Signed By: Gail Lozada MD, 06/29/2018 2:20 PM Narrative Performed At Exam: Neck CT with contrast SMS History: 58-year-old female with TxN1M0 SCC unknown primary with right neck met s/p R ND?06/11/15, no radiation - LUCIO Comparison studies: Neck CT from 01/06/2018. Technique: Axial scans were obtained through the neck with IV contrast. Coronal and sagittal reconstructions obtained from the axial data. IV Contrast: 100 cc of Omnipaque. Complications: None Radiation Dose: Total DLP: 257 mGy*cm Estimated Effective Dose: DLP x 0.0059 mSv FINDINGS: Aerodigestive tract: No abnormal enhancement or mucosal irregularity. Lymph nodes: Stable postoperative changes from right neck dissection. No radiographically significant adenopathy. Arteries: Moderate amount of calcified atherosclerotic plaque in the bilateral carotid bulbs. Jugular veins: Patent.Co-dominant. Glands: Submandibular:Homogeneous, normal in size. Parotid: Homogeneous, normal in size. Thyroid:Homogeneous, normal in size. 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 Orbits: No abnormalities.. Paranasal sinuses: Clear. Skull base and facial bones: No abnormalities. Temporal bones: No abnormalities. Cervical spine: *Mildly degenerated disc. *Mild degenerative canal stenosis at C6-C7 from posterior disc osteophyte complex. *Moderate to severe bilateral foraminal stenosis at C5-C6 and C6-C7. Incidental: Unchanged 1.7 cm cystic lesions in the superficial soft tissues of the posterior. Parasagittal lower neck Procedure Note Interface, Rad/Mammog In - 06/29/2018 3:11 PM CDT Exam: Neck CT with contrast History: 58-year-old female with TxN1M0 SCC unknown primary with right neck met s/p R ND?06/11/15, no radiation - LUCIO Comparison studies: Neck CT from 01/06/2018. Technique: Axial scans were obtained through the neck with IV contrast. Coronal and sagittal reconstructions obtained from the axial data. IV Contrast: 100 cc of Omnipaque. Complications: None Radiation Dose: Total DLP: 257 mGy*cm Estimated Effective Dose: DLP x 0.0059 mSv FINDINGS: Aerodigestive tract: No abnormal enhancement or mucosal irregularity. Lymph nodes: Stable postoperative changes from right neck dissection. No radiographically significant adenopathy. Arteries: Moderate amount of calcified atherosclerotic plaque in the bilateral carotid bulbs. Jugular veins: Patent.Co-dominant. Glands: Submandibular:Homogeneous, normal in size. Parotid: Homogeneous, normal in size. Thyroid:Homogeneous, normal in size. 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 Orbits: No abnormalities.. Paranasal sinuses: Clear. Skull base and facial bones: No abnormalities. Temporal bones: No abnormalities. Cervical spine: * Mildly degenerated disc. * Mild degenerative canal stenosis at C6-C7 from posterior disc osteophyte complex. * Moderate to severe bilateral foraminal stenosis at C5-C6 and C6-C7. Incidental: Unchanged 1.7 cm cystic lesions in the superficial soft tissues of the posterior. Parasagittal lower neck IMPRESSION IMPRESSION: No concerning adenopathy in neck. Stable postoperative changes from right neck dissection. Dictated By: Miladys Acuna MD, 06/29/2018 1:52 PM I have reviewed the study and agree with the findings in this report. Signed By: Gail Lozada MD, 06/29/2018 2:20 PM Performing Organization Address City/State/Zipcode Phone Number SMS * COMPREHENSIVE METABOLIC PANEL(DBIL NOT INCLUDED) (06/29/2018 9:11 AM CDT) Only the most recent of 2 results within the time period is included. Albumin 4.5 3.7 - 5.3 g/dL [facility] 1 Calcium 9.7 8.6 - 10.3 mg/dL [facility] 1 CO2 25 21 - 31 mmol/L [facility] 1 Chloride 103 98 - 107 mmol/L [facility] 1 Creatinine 1.00 0.60 - 1.20 mg/dL [facility] 1 Glucose 106 70 - 110 mg/dL [facility] 1 Alkaline 68 34 - 104 U/L [facility] 1 Phosphatase, S Potassium 4.5 3.5 - 5.1 mmol/L [facility] 1 Sodium 140 136 - 145 mmol/L [facility] 1 ALT 40 7 - 52 U/L [facility] 1 AST (SGOT) 37 13 - 39 U/L [facility] 1 BUN 22 7 - 25 mg/dL [facility] 1 Bilirubin, 0.5 0.2 - 1.2 mg/dL [facility] 1 Total Protein, Total, 7.4 6.0 - 8.3 g/dL [facility] 1 Serum GFR, Estimated 57 mL/min/1.73 m2 [facility] 1 eGFR If Africn >60 mL/min/1.73 m2 [facility] 1 Am Anion Gap 12 [facility] 1 Specimen Blood Performing Organization Address City/State/Zipcode Phone Number ANDRES [facility] 1 * CBC/DIFF (06/29/2018 9:11 AM CDT) Only the most recent of 2 results within the time period is included. Pathologist [facility] WBC 8.2 4.5 - 11.0 K/uL [facility] 2 RBC 4.33 4.20 - 5.40 M/uL [facility] 2 Hemoglobin 12.9 12.0 - 16.0 g/dL [facility] 2 Hematocrit 39.6 37.0 - 47.0 % [facility] 2 MCV 92 82 - 92 fL [facility] 2 MCH 29.8 27.0 - 32.0 pg [facility] 2 MCHC 32.6 32.0 - 36.0 g/dL [facility] 2 RDW 48.5 (H) 36.4 - 46.3 fL [facility] 2 Platelets 231 150 - 400 K/uL [facility] 2 Neutrophils 67.0 34.0 - 70.0 % [facility] 2 Lymphs 20.0 20.0 - 50.0 % [facility] 2 Atypical Lymph 1 % [facility] 2 Monocytes 12.0 5.0 - 12.0 % [facility] 2 Basos None seen 0.1 - 1.2 % [facility] 2 Eos None seen 0.7 - 5.0 % [facility] 2 Neutrophils 5.49 1.56 - 6.13 K/uL [facility] 2 (Absolute) Lymphs 1.64 1.18 - 3.74 K/uL [facility] 2 (Absolute) Monocytes(Absol 0.98 (H) 0.24 - 0.36 K/uL [facility] 2 yajaira) Baso (Absolute) None seen 0.01 - 0.08 K/uL [facility] 2 Eos (Absolute) None seen 0.04 - 0.36 K/uL [facility] 2 Specimen Blood Performing Organization Address City/State/Zipcode Phone Number ANDRES [facility] 2 * BONE DENSITY (DUAL PHOTON) (06/05/2018 11:55 AM CDT) Specimen Impressions Performed At IMPRESSION: SMS Osteoporosis of the left femoral neck. Dictated By: Joel Iglesias MD, 06/05/2018 1:58 PM I have reviewed the study and agree with the findings in this report. Signed By: Teto Almaguer MD, 06/05/2018 2:21 PM Narrative Performed At EXAM: BONE MINERAL DENSITY (DEXA) : SMS DATE:06/05/2018 9:48 AM INDICATION:screen osteoporosis , early menopause . TECHNIQUE: Lumbar spine and hip bone mineral densitometry (measured in grams ofCa/cm2) was obtained using the [employer] SL dual energy x-ray absorptiometer.T-scorevalue is +/-SD of young adult peak bone mineral density (BMD); WHO defines osteoporosis as T<-2.5 and osteopenia as T score of <-1.0. FINDINGS: Region................ BMD ...... T score Lumbar, L1-L4..... 0.992 ......-0.5 LEFT HIP: Femoral Neck...... 0.548 ......-2.7 Total Hip.......... ... 0.725 ......-1.8 Procedure Note Interface, Rad/Mammog In - 06/05/2018 2:26 PM CDT EXAM: BONE MINERAL DENSITY (DEXA) : DATE: 06/05/2018 9:48 AM INDICATION: screen osteoporosis , early menopause . TECHNIQUE: Lumbar spine and hip bone mineral densitometry (measured in grams of Ca/cm2) was obtained using the [employer] SL dual energy x-ray absorptiometer. T-score value is +/-SD of young adult peak bone mineral density (BMD); WHO defines osteoporosis as T<-2.5 and osteopenia as T score of <-1.0. FINDINGS: Region................ BMD ...... T score Lumbar, L1-L4..... 0.992 ...... -0.5 LEFT HIP: Femoral Neck...... 0.548 ...... -2.7 Total Hip.......... ... 0.725 ...... -1.8 IMPRESSION IMPRESSION: Osteoporosis of the left femoral neck. Dictated By: Joel Iglesias MD, 06/05/2018 1:58 PM I have reviewed the study and agree with the findings in this report. Signed By: Teto Almaguer MD, 06/05/2018 2:21 PM Performing Organization Address City/State/Zipcode Phone Number SMS * COLONOSCOPY-DIRECT SCHEDULING (05/24/2018) Narrative Performed At Performing Organization Address City/[facility] Phone Number ENDOSOFT * EMG CONSULT OUTPATIENT (05/01/2018 8:00 AM TECHNICIAN) Narrative Performed At Juju Moscoso MD 05/02/2018 11:30 AM [facility], DEPT PMR [id number] [place] [address] ELECTROMYOGRAPHY REPORT NAME : PORSHA GILMORE GENDER: Female DATE OF : 1960 ORDERING PHYSICIAN: GIANNA MENDOSA DATE :05/01/2018 08:25 NOTE: RESULTS NOT VALID WITHOUT ATTENDING PHYSICIAN ELECTRONIC SIGNATURE REASON FOR REFERRAL: CC:BRIDGETT NUMBNES AND PAIN OF HANDS HPI: LOCATION: BRIDGETT HAND PAIN AND NUMBNESS, PALMAR SUFRFACE, AFFECTS DIGITS 1-3 MORE BRIDGETT, INTERMITTENT SYMPTOMS, SYMPTOMS STARTED 25 YEARS (HAS WORN HAND SPLINTS AT NIGHT FOR A FEW MONTHS, BUT NOT SINCE THEN).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[employer], 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 AGO, + HAND WEAKNESS/DROPPING OBJECTS BUT NOT OFTEN SEVERITY: INTERMITTENT, AT ITS WORST 10/28 TIMING: INTERMITTENT, UNSURE OF WORSE AT NIGHT, WORSE WITH HAND USE 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 DENIES ANY NECK PAIN THAT RADIATES DOWN HANDS AT THIS TIME REVIEW OF SYSTEMS: Constitutional symptoms:NO RECENT FEVER, CHILLS, COUGH Gastrointestinal : NEG Genitourinary : NEG Musculoskeletal: - PAIN RECENTLY Skin: NO RASHES OR WOUNDS Neurological: +NUMBNESS+ WEAKNESS Psychiatric: NO DEPRESSED MOOD OR ANXIETY Endocrine: -DM -THYROID DZ SOCIAL HISTORY: -TOB (FORMER SMOKER, QUIT 2 YEARS AGO, PREVIOUS 1PPD)+ETOH (2-3 DRINKS A MONTH)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 PHYSICAL EXAM CONSTITUTIONAL: NO FEVER, CHILLS GEN APPEARANCE:NAD VITALS: 98.2F, P70, R16 NECK: NO LYMPHADENOPATHYM, SUPPLE MUSCULOSKELETAL: NO JOINT TENDERNESS TO PALPATION DIGITS AND NAILS:NL INSPECTION:NORMAL MUSCLE BULK PALPATION:NO ATROPHY ROM: NORMAL ROM BRIDGETT UE STRENGTH:5/5 BRIDGETT UETONE: NORMAL GAIT: NORMAL, NO ASSISTIVE DEVICES NEEDED SPECIAL TESTS: TINELS NEG, PHALENS NEG BRIDGETT SKIN: NO RASH OR WOUNDS OF HANDS INSPECTION: NO RASH PALPATION: NL TURGOR NEUROLOGIC: REFLEXES 2+ BRIDGETT UE SENSATION:LIGHT TOUCH INTACT BRIDGETT UE DTR: 2+ BRIDGETT UE PSYCHIATRIC: NEG ORIENTATION: TO NAME AND MEMORY: GOOD RECALL MOOD/AFFECT:NEG RESIDENT PHYSICIAN, AYLA SHANKS EDX Sensory Nerve / Sites Rec. Site Distance Onset Jostin Onset Lat Peak Lat Amp Temp. mm m/s ms ms V C R Median - Digit III (Antidromic) Wrist Dig III 140 37.3 3.8 4.4 4.6 R Ulnar - Digit V (Antidromic) Wrist Dig V 140 48.0 2.9 3.8 11.1 L Median - Digit III (Antidromic) Wrist Dig III 140 42.0 3.3 4.2 22.7 31.3 L Ulnar - Digit V (Antidromic) Wrist Dig V 140 48.9 2.9 3.5 21.6 31.3 Motor Nerve / Sites Rec. Site Distance Velocity Latency Amplitude Temp. mm m/s ms mV C R Median - APB Wrist APB 804.4 10.8 31.1 Elbow APB 8.2 8.8 31.5 R Ulnar - ADM Wrist ADM 803.1 6.7 31.5 B.Elbow ADM 140 49.8 5.9 5.6 31.5 L Median - APB Wrist APB 804.2 9.6 31.3 Elbow APB 200 51.2 8.1 4.9 31.3 L Ulnar - ADM Wrist ADM 804.1 6.1 31.3 B.Elbow ADM 150 56.5 6.8 4.5 31.3 EMG EMG Summary Table Spontaneous MUAP Comment Muscle IA Fib PSW Fasc Other Effort Recruit Dur Amp Polys Comment R. Abductor pollicis brevis Normal 0 0 None . Normal Normal Normal Normal None . NERVE SUMMARY: PROLONGED B MEDIAN SNAP LATENCIES WITH SLOW CV, DECR AMP ON RIGHT. MUSCLE SUMMARY: MUSCLES TESTED WNL NORMAL ELECTROMYOGRAPHY OF BILATERAL ABDUCTOR POLLUCIS BREVIS ATTENDING PHYSICIAN CONCLUSION: I WAS PRESENT FOR THE ADLER PORTION OF THE NCS/EMG PROCEDURE WITH DR. COMER ON 05/01/2018. I SAW AND EVALUATED THE PATIENT. I REVIEWED THE RESIDENT S NOTE AND AGREE. 1. ABNORMAL STUDY. 2. ELECTRODIAGNOSTIC EVIDENCE OF BILATERAL, MILD TO MODERATE, MEDIAN MONONEUROPATHY, AT THE WRISTS, AT THIS TIME: SENSORY, DEMYELINATING. FINDINGS CLINICALLY CONSISTENT WITH MODERATE CARPAL TUNNEL SYNDROME. 3. NO ELECTRODIAGNOSTIC EVIDENCE OF BILATERAL, ARM GENERALIZED NEUROPATHY. 4. NO RADICULAR SYMPTOMS AT THIS TIME, BUT FOLLOW UP IF NEED FURTHER WORKUP. PLAN: FOLLOW UP WITH THE REFERRING PHYSICIAN. FACULTY: MD [facility] ELECTRODIAGNOSTIC LABORATORY NORMAL REFERENCE VALUES FOR COMMON NERVE CONDUCTION STUDIES References used for this table from: 1. Ericer and Leona, Manual of Nerve Conduction Studies, 2nd edition, 2006, [employer], [place], [place] (for a complete listing please refer to this manual) and2. * Justin Hernandez, and Jose Luis, Electrodiagnostic Medicine, 2nd edition, 2002, [employer], [place], [place]. Skin temperature should be > 32 degrees Celsius in the upper limb and > 30 degrees Celsius in the lower limb. Final determination of normality will be made by Attending Physician taking in consideration conditions of testing. Motor Nerve Studies NerveCV(M/s)Onset latency (ms) Amplitude (mV) F-wave (ms) Axillary to Deltoid --<5.4 ms >4.6 mV-- Median to APB (8cm) >49 M/sec <4.5 ms >5 mV*<31.6 ms Musculocut.to Biceps --<5.6 ms > 4.0mV-- Radial to EDC (8cm) >54 M/sec <3.5 ms >4.3 mV-- Suprascapular (Supraspinatus) --<4.3 ms >1.6 mV-- (IS)--<4.8 ms >1.5 mV-- Ulnar to ADM (8cm) (W to BE) > 52 M/sec 2.3-4.4 ms>6.1 +/- 1.9 mV* <31.5 ms (BE to AE) > 43 M/sec Ulnar to FDI --<4.6 ms >5.1 mV-- Femoral to quads (above ligament) --<8.5 ms 0.2 11mV -- (below ligament) --<7.4 ms 0.2 11mV -- Peroneal to EDB (8cm) (ankle to fib head) >38 M/sec <6.5 ms >1.3 mV <61.2 ms (>2.6 mV if under 40 yo) (across knee) >42 M/sec Peroneal to TA >43 M/sec <4.9 ms >1.7 mV-- Tibial to AH (8cm) >39 M/sec <6.1 ms >4.4 mV<61.4 ms Sensory Nerve Studies Nerve CV (M/s) Peak latency (ms) Amplitude (V)-onset to peak Lat. antebrach.cut. --<2.5 ms >5 V Med. antebrach cut. --<2.6 ms >4 V Median to digit 2,3 (14cm) --<3.7 ms*>10 V (>15-19 V if under 50 yo) Radial to base thumb (10cm)--<2.8 ms >7 V Ulnar to digit 5 (14cm) --<3.7 ms*>6 V (>11-14 V if under 50 yo) Dorsal ulnar cut. (10cm) --<2.9 ms >5 V Comparison studies: Median/Radial to thumb --<3.1/3.0 ms>10/3 V Median/Ulnar transcarpal --<2.4/2.4 ms>10/4 V Median/Ulnar 4th digit--<4.1/3.9 ms>5/5 V Lat. fem. cut. (Spevak) >51 M/sec <6.0 ms 2.0 +/- 1.0 V Med. fem. cut.--<3.5 ms 3.4-7.9 V Superficial peroneal (14cm)--<4.2 ms 7.7 +/- 3.9 V Sural (14 cm)--<4.5 ms 10-50 V Plantar (14 cm) (Medial)--<3.7 ms 10-30 V (Lateral)--<3.7 ms 8-20 V Other Nerve Conductions Onset latency (ms) Amplitude (mV) H-reflex to FCR<18.9 ms> 0.8 mV H-reflex to gastrocnemius<35 ms -- Blink reflex(R1) <13 ms (R2 ipsi/contra)<40/41 ms Cranial VII (preauricular)2.8-4.1 ms (postauricular)3.2- 4/4 ms Cranial XI1.7-3.0 ms> 3-4 mV * CT ABDOMEN AND PELVIS CONTRAST (01/06/2018 11:29 AM CDT) Specimen Impressions Performed At IMPRESSION: SMS 1.No evidence of disease recurrence or metastasis. 2.Stable pulmonary nodules, as described above. Recommend follow-up per oncology protocol. 3.A left 1 cm adrenal nodule has been stable since 2009. 4.Bilateral renal cortical thickening with atrophic right kidney, unchanged compared to prior exam, which can be seen with multiple insults from chronic pyelonephritis. Right renal atrophy is likely related to high-grade narrowing secondary to atherosclerotic calcifications at the renal artery os. Dictated By: Savannah Jo MD, 01/06/2018 1:29 PM I have reviewed the study and agree with the findings in this report. Signed By: Curly Jacobs MD, 01/06/2018 1:36 PM Narrative Performed At EXAM: CT Chest, Abdomen and Pelvis WITH contrast SMS INDICATION: follow up lung cancer post resection LLL ADDITIONAL HISTORY: 56 year old female with a history of ovarian cancer (LUCIO after supracervical hysterectomy in 05/2009) and T0N1M0 SCCa of the head and neck (LUCIO after therapeutic right neck dissection on 06/11/15 which revealed N1 disease without extracapsular spread.) She did not require adjuvant chemo or radiation for either cancer. She is LUCIO and on surveillance for both cancers. On surveillance scans she had incidental finding of LLL nodule, now 2.1 x 1.3cm on 09/2016 PET. PET shows no other obvious sites of disease. 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 Status post VATS and wedge resection of LLL of lung on 11/11/2016. COMPARISON: Chest abdomen and pelvis CT with contrast 07/13/2017, 06/03/2017 and 05/19/2009. TECHNIQUE: Chest, abdomen and pelvis were scanned utilizing a multidetector helical scanner from the lung apex to the pubic symphysis after administration of IV contrast. Coronal and sagittal reformations were obtained. Routine protocol was performed. Scan was performed when during portal venous phase. IV CONTRAST: 100 mL of Omnipaque 300 ORAL CONTRAST: Gastroview COMPLICATIONS: None RADIATION DOSE: Total DLP: 1207 mGy*cm Estimated effective dose: (DLP x 0.015 x size factor) mSv CTDIvol has been reviewed. It is below the limits set by the Radiation Protocol Committee (RPC). FINDINGS: LINES and TUBES: None. LUNGS AND AIRWAYS: Multiple bilateral pulmonary nodules, as follows: *Interval resolution of the previous described 0.6 cm groundglass nodule in the posterior segment of the right upper lobe. *Stable 0.2 cm solid nodules in the superior segment of the right lower lobe (series 5, image 44). *Stable 0.4 cm solid nodule in the anterior segment of the right upper lobe, previously 0.4 cm (series 5, image 39). *Stable 0.4 cm groundglass nodule in the lingula, previously 0.5 cm (series 5, image 60). *Stable 0.5 cm solid nodule in the lingula (series 5, image 52). *Stable 0.4 cm groundglass nodule in the left lower lobe, previously 0.5 cm (series 5, image 65). Postsurgical changes of a left lower lobectomy for resection of the mucinous carcinoma. Nodular linear scarring has been stable since 06/03/2017 with largest nodule measuring 1.7 cm, previously 1.7 cm (series 5, image 56). Stable right middle lobe scarring. Airways are normal. PLEURA: No pleural effusions. No pneumothorax. HEART AND MEDIASTINUM: The thyroid gland is normal.No mediastinal, hilar or axillary lymphadenopathy.The heart is normal in size.. There is no pericardial effusion.The main pulmonary artery and the mid ascending aorta diameters measure 2.8 and 3.1 cm respectively. Mild atherosclerotic calcifications of the aortic valve, thoracic aorta and coronary arteries. HEPATOBILIARY: The liver is diffusely hypodense compared to the spleen, consistent with diffuse hepatic steatosis.Stable 0.5 and 1.2 cm hypodense nonenhancing lesions in the right hepatic dome, most likely represent simple liver cysts (series 4, image). No arterially enhancing lesions. Replaced right hepatic artery from the SMA. Otherwise conventional hepatic. No biliary ductal dilation. GALLBLADDER: No radio-opaque stones or sludge.No wall thickening. SPLEEN: No splenomegaly. PANCREAS: No focal masses or ductal dilatation. ADRENALS: 1 cm left adrenal nodule with attenuation 59 Hounsfield units, previously 1 cm (series 4, image 49). No right adrenal nodules. KIDNEYS/URETERS: Bilateral cortical thinning with atrophic right kidney and mild perinephric fat stranding. Large and diffuse chronic calcifications at the origin of the right renal artery. Stable 0.6 cm calcification in the left proximal ureter likely represents a nonobstructing ureteral calculus (series 4, image 65). Stable 0.6 cm calcification in the distal right ureter (series 4, image 105).No hydronephrosis. 1.4 cm simple renal cyst at the interpolar region of the left kidney (series 4, 62). GI TRACT: Contrast within the small bowel. No abnormal distention, wall thickening, or evidence of bowel obstruction.Mild diverticulosis without evidence of diverticulitis. Unchanged diverticulum originating from the medial aspect of the second portion of the duodenum. Appendix is normal. PELVIC ORGANS/BLADDER: Postsurgical changes from prior total abdominal hysterectomy and bilateral salpingo-oophorectomy. LYMPH NODES: No lymphadenopathy. VESSELS: Large atherosclerotic plaque at the origin of the right renal artery. PERITONEUM / RETROPERITONEUM: No free air or fluid. BONES: No acute osseous lesions. Mild multilevel degenerative changes of the thoracolumbar spine, most notably at T12-L1. Unchanged wedge-shaped compression fracture of the L1 vertebral body, stable since November 2016. Age-indeterminate fracture deformity of the right ninth, 10th and 11th lateral ribs (series 4 image 45 and 49). SOFT TISSUES: Unremarkable. 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 She is LUCIO and on surveillance for both cancers. On surveillance scans she had incidental finding of LLL nodule, now 2.1 x 1.3cm on 09/2016 PET. PET shows no other obvious sites of disease. 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 Status post VATS and wedge resection of LLL of lung on 11/11/2016. COMPARISON: Chest abdomen and pelvis CT with contrast 07/13/2017, 06/03/2017 and 05/19/2009. TECHNIQUE: Chest, abdomen and pelvis were scanned utilizing a multidetector helical scanner from the lung apex to the pubic symphysis after administration of IV contrast. Coronal and sagittal reformations were obtained. Routine protocol was performed. Scan was performed when during portal venous phase. IV CONTRAST: 100 mL of Omnipaque 300 ORAL CONTRAST: Gastroview COMPLICATIONS: None RADIATION DOSE: Total DLP: 1207 mGy*cm Estimated effective dose: (DLP x 0.015 x size factor) mSv CTDIvol has been reviewed. It is below the limits set by the Radiation Protocol Committee (RPC). FINDINGS: LINES and TUBES: None. LUNGS AND AIRWAYS: Multiple bilateral pulmonary nodules, as follows: * Interval resolution of the previous described 0.6 cm groundglass nodule in the posterior segment of the right upper lobe. * Stable 0.2 cm solid nodules in the superior segment of the right lower lobe (series 5, image 44). * Stable 0.4 cm solid nodule in the anterior segment of the right upper lobe, previously 0.4 cm (series 5, image 39). * Stable 0.4 cm groundglass nodule in the lingula, previously 0.5 cm (series 5, image 60). * Stable 0.5 cm solid nodule in the lingula (series 5, image 52). * Stable 0.4 cm groundglass nodule in the left lower lobe, previously 0.5 cm (series 5, image 65). Postsurgical changes of a left lower lobectomy for resection of the mucinous carcinoma. Nodular linear scarring has been stable since 06/03/2017 with largest nodule measuring 1.7 cm, previously 1.7 cm (series 5, image 56). Stable right middle lobe scarring. Airways are normal. PLEURA: No pleural effusions. No pneumothorax. HEART AND MEDIASTINUM: The thyroid gland is normal. No mediastinal, hilar or axillary lymphadenopathy. The heart is normal in size.. There is no pericardial effusion. The main pulmonary artery and the mid ascending aorta diameters measure 2.8 and 3.1 cm respectively. Mild atherosclerotic calcifications of the aortic valve, thoracic aorta and coronary arteries. HEPATOBILIARY: The liver is diffusely hypodense compared to the spleen, consistent with diffuse hepatic steatosis. Stable 0.5 and 1.2 cm hypodense nonenhancing lesions in the right hepatic dome, most likely represent simple liver cysts (series 4, image). No arterially enhancing lesions. Replaced right hepatic artery from the SMA. Otherwise conventional hepatic. No biliary ductal dilation. GALLBLADDER: No radio-opaque stones or sludge. No wall thickening. SPLEEN: No splenomegaly. PANCREAS: No focal masses or ductal dilatation. ADRENALS: 1 cm left adrenal nodule with attenuation 59 Hounsfield units, previously 1 cm (series 4, image 49). No right adrenal nodules. KIDNEYS/URETERS: Bilateral cortical thinning with atrophic right kidney and mild perinephric fat stranding. Large and diffuse chronic calcifications at the origin of the right renal artery. Stable 0.6 cm calcification in the left proximal ureter likely represents a nonobstructing ureteral calculus (series 4, image 65). Stable 0.6 cm calcification in the distal right ureter (series 4, image 105). No hydronephrosis. 1.4 cm simple renal cyst at the interpolar region of the left kidney (series 4, 62). GI TRACT: Contrast within the small bowel. No abnormal distention, wall thickening, or evidence of bowel obstruction. Mild diverticulosis without evidence of diverticulitis. Unchanged diverticulum originating from the medial aspect of the second portion of the duodenum. Appendix is normal. PELVIC ORGANS/BLADDER: Postsurgical changes from prior total abdominal hysterectomy and bilateral salpingo-oophorectomy. LYMPH NODES: No lymphadenopathy. VESSELS: Large atherosclerotic plaque at the origin of the right renal artery. PERITONEUM / RETROPERITONEUM: No free air or fluid. BONES: No acute osseous lesions. Mild multilevel degenerative changes of the thoracolumbar spine, most notably at T12-L1. Unchanged wedge-shaped compression fracture of the L1 vertebral body, stable since November 2016. Age-indeterminate fracture deformity of the right ninth, 10th and 11th lateral ribs (series 4 image 45 and 49). SOFT TISSUES: Unremarkable. IMPRESSION IMPRESSION: 1. No evidence of disease recurrence or metastasis. 2. Stable pulmonary nodules, as described above. Recommend follow-up per oncology protocol. 3. A left 1 cm adrenal nodule has been stable since 2009. 4. Bilateral renal cortical thickening with atrophic right kidney, unchanged compared to prior exam, which can be seen with multiple insults from chronic pyelonephritis. Right renal atrophy is likely related to high-grade narrowing secondary to atherosclerotic calcifications at the renal artery os. Dictated By: Savannah Jo MD, 01/06/2018 1:29 PM I have reviewed the study and agree with the findings in this report. Signed By: Curly Jacobs MD, 01/06/2018 1:36 PM Performing Organization Address City/[facility]/Zipcode Phone Number SMS * TSH (01/06/2018 8:12 AM CDT) TSH 4.40 (H) 0.57 - 3.74 uIU/mL BT MAIN-STATION 1 Specimen Performing Organization Address City/[facility] Number MIS[facility] BT [facility]IN-ST[facility] 1 * XRAY RIBS UNILATERAL 2 VIEWS (12/06/2017 11:00 AM CDT) Specimen Impressions Performed At IMPRESSION: SMS Subacute minimally displaced fractures of the left ninth and 10th ribs. Dictated By: Kris Mann DO, 12/06/2017 11:09 AM I have reviewed the study and agree with the findings in this report. Signed By: Yayo Zee MD, 12/06/2017 11:29 AM Narrative Performed At Right Rib Series:3 view(s) SMS COMPARISON: Chest x-ray from 11/24/2016 DISCUSSION: Exam is limited by soft tissue attenuation. Subacute minimally displaced fractures of the left ninth and 10th ribs. No acute displaced fracture. No pneumothorax. The soft tissues are unremarkable. Procedure Note Interface, Rad/Mammog In - 12/06/2017 11:34 AM CDT Right Rib Series: 3 view(s) COMPARISON: Chest x-ray from 11/24/2016 DISCUSSION: Exam is limited by soft tissue attenuation. Subacute minimally displaced fractures of the left ninth and 10th ribs. No acute displaced fracture. No pneumothorax. The soft tissues are unremarkable. IMPRESSION IMPRESSION: Subacute minimally displaced fractures of the left ninth and 10th ribs. Dictated By: Kris Mann DO, 12/06/2017 11:09 AM I have reviewed the study and agree with the findings in this report. Signed By: Yayo Zee MD, 12/06/2017 11:29 AM Performing Organization Address City/State/Zipcode Phone Number SMS after 09/21/2017 Insurance Type Payer Benefit Subscriber ID Effective Phone Address Plan / Dates Group [facility] xxxxxxxxx 2018-[id number] [facility] [id number] [place] [address] [facility] HD PLAN xxxxxx 2018-3 [id number] [place] [address] Advance Directives Date Inactivated Comments Code Status Date Activated 11/17/2016 2:55 PM Full Code 11/11/2016 6:57 PM 11/11/2016 6:52 PM Full Code 11/11/2016 10:39 AM 06/12/2015 11:21 AM Full Code 06/11/2015 5:16 PM
[2018-09-22 13:45] VITALS: BP 143/81
--- NOTE | 2018-11-12 22:27 | Operative Report ---
DATE OF PROCEDURE: 09/22/2018 SURGEON: Ethan Gloria MD PREOPERATIVE DIAGNOSES: 1. Right ureterolithiasis. 2. Left ureterolithiasis. 3. Bilateral indwelling ureteral stents. POSTOPERATIVE DIAGNOSES: 1. Right ureterolithiasis. 2. Left ureterolithiasis. 3. Bilateral indwelling ureteral stents. 4. Grade 1 to 2 rectocele. 5. Minimal cystocele. 6. Atrophic (senile) vaginitis. OPERATIONS PERFORMED: 1. Cystourethroscopy with bilateral removal of indwelling ureteral stents (separate ). 2. Bilateral ureteroscopy with holmium laser lithotripsy and insertion of stents (separate procedure performed for the bilateral ureterolithiasis). 3. Radiological services with supervision and interpretation of ureteroscopy. 4. Interpretation of retrograde ureteropyelography. 5. Supervision of fluoroscopy, no radiologist present. 6. Pelvic examination under anesthesia. ANESTHESIA: General. COMPLICATIONS: None. CLINICAL SUMMARY: Ms. Gilmore is a 58-year-old woman with bilateral indwelling ureteral stents and were placed for bilateral obstructing ureterolithiasis. She is brought for the above procedures. She is aware of the risks of bleeding, infection, injury to adjacent structures, need for additional procedures and elected to proceed. OPERATIVE PROCEDURE IN DETAIL: Informed consent was verified. Michelle Gilmore was properly identified, taken to the operating room, placed on the cystoscopy table in supine position. Anesthesia was uneventfully begun. The patient was then carefully gently repositioned in the dorsal lithotomy position with all pressure points well padded. Her genitalia were prepared and draped in usual sterile fashion. The cystoscope sheath with obturator in place was atraumatically inserted in the patient's urethra and the bladder was drained. Panendoscopy of the urinary bladder revealed no suspicious mucosal lesions, no tumors, no stones, no diverticula. Two stents were emerging from each ureteral orifice and they were not significantly encrusted. A guidewire was then placed into the left ureter and guided to the level of the patient's kidney was then grasped, completely removed and discarded. Semi-rigid ureteroscope was then placed alongside the guidewire and guided into the patient's left ureter. We identified stone burden. Stone burden was underwent holmium laser lithotripsy and tipless basket was utilized to extract the largest remained with cystoscopic fluoroscopic guidance, a left-sided indwelling ureteral stent was then placed, it was coiled on the patient's kidney as well as the patient's bladder. A group of procedures was then performed on the contralateral side with similar results. Interpretation of retrograde ureteropyelography contrast was instilled in retrograde fashion bilaterally. There were no tumors nor no suspicious lesions, stones were identified. The stents were in good position, coiled on the patient's kidneys as well as the patient's bladder at the end of the case. The patient's bladder was then drained and cystoscope was withdrawn. Pelvic examination under anesthesia revealed a grade 1-2 rectocele. There was a very minimal less than grade 1 cystocele. There was atrophic (senile) vaginitis. The patient was then uneventfully reversed from anesthesia and was taken to recovery room in stable condition. There were no complications to the procedure. She tolerated procedure well. Plans will be to return the patient to the operating room to remove her stents, bilateral ureteroscopies and hopefully render the patient stent free and stone free at that time. Ongoing urological followup on lifelong basis. Ethan Gloria MD [place]/MODL /[id number]
== END | disposition home or self-care (01) ==
LOC: OR 10:13
PROVIDERS: ATTEND Urology
DX: N20.1 Calculus of ureter (principal); Z46.6 Encounter for fitting and adjustment of urinary device; N81.6 Rectocele; N81.10 Cystocele, unspecified; N95.2 Postmenopausal atrophic vaginitis; I10 Essential (primary) hypertension; K21.9 Gastro-esophageal reflux disease without esophagitis; Z01.810 Encounter for preprocedural cardiovascular examination; Z79.82 Long term (current) use of aspirin; Z90.2 Acquired absence of lung [part of]; Z85.118 Personal history of other malignant neoplasm of bronchus and lung; Z87.891 Personal history of nicotine dependence
CPT/HCPCS: 52356; 74018; 74420; 88300; 93005; C1874; J0696; J1100; J1580; J2001; J2405; J2704; Q9967; J3010

== ENCOUNTER 2018-10-06 20:57 | Inpatient (IN) | payer MEDICARE, OTHER ==
[~2018-10-06] VITALS: Ht 160 cm; Wt 70.8 kg
[2018-10-06 20:00] VITALS: BP 105/70
[~2018-10-06 20:57] MED LIST changes: -B&O 60MG R/S 60 MG SUPP PR ONE; -CEFTRIAXONE SOD 1 GM/NS 50 ML 50 ML IV ONE; -COLCRYS0.6 MG PO; -DEXAMETHASONE SOD PHOS INJ 4 MG/ML VIAL ONE; -FENTANYL CITRATE/PF 100MCG/2 ML INJ ONE; -GENTAMICIN 80MG/NS 100 ML 100 ML IV ONE; -IOPAMIDOL 610MG/1ML 300 MG/ML VIAL IV ONE; -LIDOCAINE HCL 2% LOCAL INJ 5 ML SDV VIAL INJ ONE; -MYRBETRIQ50 MG PO; -ONDANSETRON HCL INJ 2MG/ML 2ML 2 MG/ML VIAL ONE; -PROPOFOL IV EMULSION 10 MG/ML 20 ML VIAL ONE; -SEVOFLURANE INHAL SOLN 250 ML PEN BTL ONE; -TYLENOL WITH C1 EACH PO; -[UNRECOGNIZED DRUG - OTHER]
--- OUTSIDE RECORDS SUMMARY | 2018-10-06 21:00 | XMS REPORT | Clinical Summary ---
Author Author [facility] Organization [facility] Address Unknown Phone Unavailable Care Team Providers Care Remotely Operated Vehicle Name Role Phone Gianna Mendosa MD PCP [...] polyethylene glycol Add lukewarm 4000 mL 0 (Covario) [id number] drinking 9 -5.86 gram oral water [...] contacted regarding plan: Yes Terry Griffiths, PILAR, CLOTH EXAMINER MACHINE-C, Nurse Practitioner, [facility] , ID # [id number] Pager # [phone] CULLEN 05/17/17 Ms. Gilmore is a 56yoF [...] candidate for SBRT. Patient was discussed at [facility] on 07/10/15: Diagnosis: [id number] SCC unknown primary, [...] Travel Rafael Granados MD Itching 06/21/2018 Refill [facility] Gianna Mendosa MD Early onset menopause 06/05/2018 Hospital Radiology Encounter Joseph McintyreArleyTismaty Colonoscopy 05/31/2018 Telephone Gianna Mendosa MD Bilateral carpal tunnel syndrome (Primary Dx) 05/22/2018 Office Visit [facility] Gianna Mendosa MD Right sided sciatica (Primary Dx); Essential hypertension with goal blood pressure less than 130/80; Early onset menopause; Bilateral carpal tunnel syndrome 05/19/2018 Office Visit [facility] 05/19/2018 Travel Rafael Granados MD Essential hypertension with goal blood pressure less than 130/80 05/08/2018 Refill [facility] Ruth Pineda, Physician Gianna Mendosa MD Tan, Faye C, MD Bilateral carpal tunnel syndrome (Primary Dx) 05/01/2018 Procedure Visit [facility] Medicine [facility] Rehab 05/01/2018 Travel Joseph Mcintyre Colonoscopy 04/21/2018 Telephone Rafael Granados MD Adenomatous polyp of ascending colon (Primary Dx) 04/21/2018 Orders Only [facility] Joseph Mcintyre Colonoscopy 04/19/2018 Telephone Gianna Mendosa MD Flu vaccine need (Primary Dx); Essential hypertension with goal blood pressure less than 130/80; Pure hypercholesterolemia; Gastroesophageal reflux disease, esophagitis presence not specified; Rib pain on right side s/p fall; Seasonal allergies; Bilateral carpal tunnel syndrome; Hx of colonic polyp 02/28/2018 Office Visit [facility] Gianna Mendosa MD Bilateral carpal tunnel syndrome 02/28/2018 Orders Only [facility] 02/28/2018 Travel Teto Montes MD Head and neck cancer (Primary Dx) 02/06/2018 Office Visit Ent-Otolaryngology Trudy Nelson Abnormal auditory perception of right ear (Primary Dx); Tinnitus of right ear; Bilateral sensorineural hearing loss 02/06/2018 Hospital Audiology Encounter Rafael Granados MD Itching 01/18/2018 Refill [facility] Chas Flores, Fellow(MD) Marlys Cee MD Lu, Jinyu, Fellow(MD) Malignant neoplasm of ovary, unspecified laterality (Primary Dx); Lung mass; Head and neck cancer; Hypothyroidism, unspecified type 01/12/2018 [facility]; Squamous cell [...] than 130/80 10/28/2017 Refill Family Practice after 10/05/2017 Immunizations Name Administration Dates Next Due Influenza [...] Date Type Specialty Gianna Mendosa MD [address] [place] [address] [phone] [facility] 10/16/2018 Office Visit [facility] 11/13/2018 Appointment Morris Shore, Fellow() Department of Internal Medicine - [address] [place] [address] CM TEACHING 11/24/2018 Appointment Gastroenterology Irma Alrled MD [address] [address] [phone] 12/22/2018 Lab Appointment Lab Irma Allred MD [address] [place] [address] [place] [address] [phone] 01/03/2019 Ancillary Radiology Procedure Irma Allred MD [address] [place] [address] [place] [address] 01/03/2019 Ancillary Radiology Procedure Health [...] Routine 05/01/2018 Bilateral carpal tunnel 8:00 AM [facility] syndrome CT SOFT TISSUE NECK W Routine [...] VIEWS 11:00 AM CDT s/p fall after 10/05/2017 Results * MAMMOGRAM BILAT SCREEN DIGITAL (08/07/2018 9:49 AM CDT) Specimen Impressions Performed At IMPRESSION: BENIGN SMS There is no mammographic evidence of malignancy. A 1 year screening mammogram is recommended. This document has been electronically signed. Herbert Meng M.D. et/penrad:08/07/2018 10:26:05 Malted Milk Supervisor: Ms. Macy Faulkner RT(R)(M), [facility] letter sent: Mammography Normal Mammogram BI-RADS: 2 Benign [id number] [id number] Narrative Performed At #[id number] - MAMMOGRAM BILAT SCREEN DIGITAL SMS BILATERAL DIGITAL SCREENING MAMMOGRAM WITH CAD: 08/07/2018 CLINICAL: Screening for malignancy. Comparison is made to exams dated:08/01/2017, 07/12/2016 [facility], and 02/03/2015 [facility]. There are scattered fibroglandular elements in both [...] Rad/Mammog In - 08/07/2018 11:05 AM CDT #[id number] - MAMMOGRAM BILAT SCREEN DIGITAL BILATERAL DIGITAL SCREENING MAMMOGRAM WITH CAD: 08/07/2018 CLINICAL: Screening for malignancy. Comparison is made to exams dated: 08/01/2017, 07/12/2016 [facility], and 02/03/2015 [facility] [place]. There are scattered fibroglandular elements in both [...] electronically signed. Herbert Meng M.D. et/penrad:08/07/2018 10:26:05 Malted Milk Supervisor: Ms. Macy Faulkner RT(R)(M), [facility] letter sent: Mammography Normal Mammogram [...] included. Albumin 4.5 3.7 - 5.3 g/dL [facility] 1 Calcium 9.7 8.6 - 10.3 mg/dL [facility] 1 CO2 25 21 - 31 mmol/L [facility] 1 Chloride 103 98 - 107 mmol/L [facility] 1 Creatinine 1.00 0.60 - 1.20 mg/dL [facility] 1 Glucose 106 70 - 110 mg/dL [facility] 1 Alkaline 68 34 - 104 U/L [facility] 1 Phosphatase, S Potassium 4.5 3.5 - 5.1 mmol/L [facility] 1 Sodium 140 136 - 145 mmol/L [facility] 1 ALT 40 7 - 52 U/L [facility] 1 AST (SGOT) 37 13 - 39 U/L [facility] 1 BUN 22 7 - 25 mg/dL [facility] 1 Bilirubin, 0.5 0.2 - 1.2 mg/dL [facility] 1 Total Protein, Total, 7.4 6.0 - 8.3 g/dL [facility] 1 Serum GFR, Estimated 57 mL/min/1.73 m2 [facility] 1 eGFR If Africn >60 mL/min/1.73 m2 [facility] 1 Am Anion Gap 12 [facility] 1 Specimen Blood Performing Organization Address City/State/Zipcode Phone Number [facility]RES [facility] 1 * CBC/DIFF (06/29/2018 9:11 AM CDT) Only the most recent of 2 results within the time period is included. Pathologist [facility] WBC 8.2 4.5 - 11.0 K/uL [facility] 2 RBC 4.33 4.20 - 5.40 M/uL [facility] 2 Hemoglobin 12.9 12.0 - 16.0 g/dL [facility] 2 Hematocrit 39.6 37.0 - 47.0 % [facility] 2 MCV 92 82 - 92 fL [facility] 2 MCH 29.8 27.0 - 32.0 pg [facility] 2 MCHC 32.6 32.0 - 36.0 g/dL [facility] 2 RDW 48.5 (H) 36.4 - 46.3 fL [facility] 2 Platelets 231 150 - 400 K/uL [facility] 2 Neutrophils 67.0 34.0 - 70.0 % [facility] 2 Lymphs 20.0 20.0 - 50.0 % [facility] 2 Atypical Lymph 1 % [facility] 2 Monocytes 12.0 5.0 - 12.0 % [facility] 2 Basos None seen 0.1 - 1.2 % [facility] 2 Eos None seen 0.7 - 5.0 % [facility] 2 Neutrophils 5.49 1.56 - 6.13 K/uL [facility] 2 (Absolute) Lymphs 1.64 1.18 - 3.74 K/uL [facility] 2 (Absolute) Monocytes(Absol 0.98 (H) 0.24 - 0.36 K/uL [facility] 2 yajaira) Baso (Absolute) None seen 0.01 - 0.08 K/uL [facility] 2 Eos (Absolute) None seen 0.04 - 0.36 K/uL [facility] 2 Specimen Blood Performing Organization Address City/State/Zipcode Phone Number [facility]RES [facility] 2 * BONE DENSITY (DUAL PHOTON) (06/05/2018 [...] in grams ofCa/cm2) was obtained using the HoloWonderflowcovery SL dual energy x-ray absorptiometer.T-scorevalue is +/-SD [...] (05/24/2018) Narrative Performed At Performing Organization Address City/[facility] Phone Number ENDOSOFT * [facility] CONSULT OUTPATIENT (05/01/2018 8:00 AM [facility]) Narrative Performed At Juju Moscoso MD 05/02/2018 11:30 AM [facility], DEPT PMR [address] [place] [address] ELECTROMYOGRAPHY REPORT NAME : PORSHA GILMORE GENDER: [...] FEW MONTHS, BUT NOT SINCE THEN).STATES WORKS [employer], 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 AGO, + HAND WEAKNESS/DROPPING OBJECTS BUT NOT OFTEN SEVERITY: INTERMITTENT, AT ITS WORST 10/28 TIMING: INTERMITTENT, UNSURE OF WORSE AT NIGHT, WORSE WITH HAND USE 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 FACULTY: MD ARCADIO [facility] ELECTRODIAGNOSTIC LABORATORY NORMAL REFERENCE VALUES FOR COMMON NERVE CONDUCTION STUDIES References used for this table from: 1. Ericer and Leona, Manual of Nerve Conduction Studies, 2nd edition, 2006, [employer], [place], [place] (for a complete listing please refer to this manual) and2. * Justin Hernandez, and Jose Luis, Electrodiagnostic Medicine, 2nd edition, 2002, [employer], [place], [place]. Skin temperature should be > 32 [...] MD, 01/06/2018 1:36 PM Performing Organization Address City/[facility]/Zipcode Phone Number SMS * TSH (01/06/2018 8:12 AM CDT) TSH 4.40 (H) 0.57 - 3.74 uIU/mL BT MAIN-STATION 1 Specimen Performing Organization Address City/[facility] Phone Number MISYS BT [facility]IN[facility] 1 * [...] Organization Address City/State/Zipcode Phone Number SMS after 10/05/2017 Insurance Type Payer Benefit Subscriber ID Effective Phone Address Plan / Dates Group [facility] xxxxxxxxx 2018-[address] [facility] [id number] [place] [address] [facility] PLAN HD PLAN xxxxxx 2018-3 [id number] [place] [address] Advance Directives Date Inactivated Comments Code Status Date Activated 11/17/2016 2:55 PM Full Code 11/11/2016 6:57 PM 11/11/2016 6:52 PM Full Code 11/11/2016 10:39 AM 06/12/2015 11:21 AM Full Code 06/11/2015 5:16 PM
[2018-10-06] MEDS ORDERED: ONDANSETRON HCL INJ 2MG/ML 2ML 2 MG/ML VIAL IV NR (21:35)
[2018-10-06] MEDS ORDERED: SODIUM CHLORIDE 0.9% 1000ML 1,000 ML IV ONE ×2 (21:45→23:30)
[2018-10-06] MEDS ORDERED: ONDANSETRON HCL INJ 2MG/ML 2ML 2 MG/ML VIAL ONE (21:47)
[2018-10-06 21:57] LABS: BASOPHILS # (AUTO) 0.1 (0.0-0.1); BASOPHILS % 0.3 % (0.0-1.0); EOSINOPHILS % 0.2 % (0.0-6.0); HEMATOCRIT 39.4 % (34.2-44.1); HEMOGLOBIN 12.9 g/dL (12.0-16.0); LYMPHOCYTES # (AUTO) 1.5 (1.0-3.2); LYMPHOCYTES % 8.3 % (18.0-39.1); MEAN CORPUSCULAR HEMOGLOBIN 30.3 pg (28-32); MEAN CORPUSCULAR HGB CONC 32.7 g/dL (31-35); MEAN CORPUSCULAR VOLUME 92.5 fL (81-99); MONOCYTES # (AUTO) 1.1 (0.2-0.8); MONOCYTES % 5.8 % (4.4-11.3); NEUTROPHILS # (AUTO) 15.5 (2.1-6.9); PLATELET COUNT 331 x10e3/uL (140-360); RED BLOOD COUNT 4.26 x10e6/uL (3.6-5.1); RED CELL DISTRIBUTION WIDTH 15.4 % (11.7-14.4)
[2018-10-06 22:19] LABS: AMYLASE 73 U/L (25-125); LIPASE 51 U/L (8-78)
[2018-10-06 22:24] LABS: ALBUMIN 4.5 g/dL (3.5-5.0); ALBUMIN/GLOBULIN RATIO 0.9 (0.8-2.0); ANION GAP 39.8 mmol/L (8-16); CALCIUM 9.3 mg/dL (8.4-10.2); CREATININE, SERUM 1.54 mg/dL (0.57-1.11); POTASSIUM 3.8 mmol/L (3.5-5.1)
[2018-10-06 22:30] LABS: CREATINE KINASE MB 1.1 ng/mL (0-5.0)
--- NOTE | 2018-10-06 22:51 | NUR ---
DR. HORN NOTIFIED AND AWARE OF CRITICAL LAB VALUE; CO2 6.
[2018-10-06] MEDS ORDERED: CEFEPIME 2 GM/NS 0.9% 100 ML 100 ML IV ONE (23:15)
[2018-10-06] MEDS ORDERED: DIATRIZOATE MEGL/DIATRIZOA SOD 30 ML BTL PO ONE (23:59)
[2018-10-07] MEDS ORDERED: PROMETHAZINE HCL (IM) 25 MG/ML VIAL IM ONE (01:00)
--- NOTE | 2018-10-07 01:59 | Diagnostic Imaging Report ---
EXAM: CT of the abdomen and pelvis WITHOUT contrast HISTORY: Abdominal pain, ureteral stent, dehydration COMPARISON: CT of the pelvis August 23, 2018 TECHNIQUE: The abdomen and pelvis were scanned utilizing a multidetector helical scanner. Coronal and sagittal reformats are available. PROTOCOL: Routine IV CONTRAST: None, which limits sensitivity and specificity of evaluation of the soft tissues and vascular structures. ORAL CONTRAST: None, which limits sensitivity and specificity of evaluation of the bowel. RADIATION DOSE: Total DLP: 341.94 mGy*cm Estimated effective dose: (DLP x 0.015 x size factor) Dose modulation, iterative reconstruction, and/or weight based adjustment of the mA/kV was utilized to reduce the radiation dose to as low as reasonably achievable. COMPLICATIONS: None FINDINGS: LOWER THORAX: Small sliding hiatal hernia. HEPATOBILIARY: Diffusely decreased attenuation. Focal fatty infiltration adjacent to the falciform ligament, otherwise no definite focal hepatic lesions. No biliary ductal dilatation. The gallbladder is unremarkable. SPLEEN: No splenomegaly. PANCREAS: No focal masses or ductal dilatation. ADRENALS: The previously described 1.4 cm left adrenal nodule measures 8 Hounsfield units, compatible with a lipid-rich adenoma. KIDNEYS/URETERS: No hydronephrosis or solid mass lesion identified. Right: * Interval placement of a ureteral stent, the proximal portal at the renal pelvis and the distal coil within the decompressed urinary bladder. * The 4 to 5 mm distal right ureteral stone is no longer visible, correlate for extraction. * Malrotation. * A punctate nonobstructing stone near the inferior pole. * Stable subcentimeter cyst. Left: * Interval placement of a ureteral stent, the proximal portal at the renal pelvis and the distal coil within the decompressed urinary bladder. * The 4 to 5 mm ureteropelvic junction stone is no longer visible, correlate for extraction. PELVIC ORGANS/BLADDER: The urinary bladder is decompressed. PERITONEUM / RETROPERITONEUM: No free air or fluid. GI TRACT: On limited evaluation of the gastrointestinal tract, no dilation or wall thickening identified. The appendix appears normal. Mild colonic diverticulosis, without signs of acute diverticulitis. LYMPH NODES: Prior lymph node dissection, without a pathologically enlarged lymph node. VESSELS: Diffuse scattered atherosclerotic vascular calcifications. BONES and JOINTS: Stable right-sided rib fracture deformities in the late stages of healing. Stable L1 anterior wedge compression fracture deformity and mild anterior wedge deformity of adjacent T12. SOFT TISSUES: Stable ventral fat-containing supraumbilical abdominal wall hernia, without associated inflammatory changes. IMPRESSION: 1. Status post placement of bilateral ureteral stents, no hydronephrosis or evidence of stent malposition. 2. The previously described left adrenal nodule is an incidental lipid-rich adenoma. 3. Hepatic steatosis. 4. Colonic diverticulosis. 5. Stable L1 and to a lesser degree T12 anterior wedge compression fracture deformities. 6. Multiple right-sided rib fracture deformities in the late stages of healing. Signed by: Dr. Devonte Pires D.O., M.M.M. on 10/07/2018 1:55 AM
[2018-10-07] MEDS ORDERED: HYDROMORPHONE 1MG/1ML INJ IV STA (02:17)
[2018-10-07 02:30] LABS: BILIRUBIN,URINE SMALL (NEGATIVE); CLARITY,URINE CLEAR (CLEAR); COLOR,URINE YELLOW (YELLOW); KETONES,URINE 2+ (NEGATIVE); LEUKOCYTE ESTERASE ,URINE NEGATIVE (NEGATIVE); NITRITE,URINE NEGATIVE (NEGATIVE); PROTEIN,URINE DIPSTICK 2+ (NEGATIVE); URINE UROBILINOGEN 0.2 mg/dL (0.2 - 1)
[2018-10-07 02:33] LABS: AMORPHOUS SEDIMENT,URINE MODERATE (FEW); BACTERIA,URINE RARE /HPF; EPITHELIAL CELLS,URINE RARE /LPF; TRANSITIONAL EPI CELLS,URINE FEW; WBC,URINE (MAN) 0-5 /HPF (0-5)
[2018-10-07] MEDS ORDERED: ONDANSETRON HCL INJ 2MG/ML 2ML 2 MG/ML VIAL IV PRN (02:45)
[2018-10-07] MEDS ORDERED: HYDROMORPHONE 2MG/ML 2 MG/ML ML IV STA (02:55)
--- OUTSIDE RECORDS SUMMARY | 2018-10-07 03:00 | XMS REPORT | Clinical Summary ---
Author Author [facility] Organization [facility] Address Unknown Phone Unavailable Care Team Providers Care Director [employer] Name Role Phone Gianna Mendosa MD PCP [...] polyethylene glycol Add lukewarm 4000 mL 0 (Gorb) [id number] drinking 9 -5.86 gram oral water [...] contacted regarding plan: Yes Terry Griffiths, PILAR, MANAGEMENT TECHNICIAN-C, Nurse Practitioner, [facility] , ID # [id number] Pager # [phone] CULLEN 05/17/17 Ms. Gilmore is a 56yoF [...] candidate for SBRT. Patient was discussed at [facility] on 07/10/15: Diagnosis: [id number] SCC unknown [...] Travel Rafael Granados MD Itching 06/21/2018 Refill [facility] Gianna Mendosa MD Early onset menopause 06/05/2018 Hospital Radiology Encounter Joseph McintyreArleyTismaty Colonoscopy 05/31/2018 Telephone Gianna Mendosa MD Bilateral carpal tunnel syndrome (Primary Dx) 05/22/2018 Office Visit [facility] Gianna Mendosa MD Right sided sciatica (Primary Dx); Essential hypertension with goal blood pressure less than 130/80; Early onset menopause; Bilateral carpal tunnel syndrome 05/19/2018 Office Visit [facility] 05/19/2018 Travel Rafael Granados MD Essential hypertension with goal blood pressure less than 130/80 05/08/2018 Refill [facility] Ruth Pineda, Physician Gianna Mendosa MD Tan, Faye C, MD Bilateral carpal tunnel syndrome (Primary Dx) 05/01/2018 Procedure Visit [facility] 05/01/2018 Travel Joseph Mcintyre Colonoscopy 04/21/2018 Telephone Rafael Granados MD Adenomatous polyp of ascending colon (Primary Dx) 04/21/2018 Orders Only [facility] Joseph Mcintyre Colonoscopy 04/19/2018 Telephone Gianna Mendosa MD Flu vaccine need (Primary Dx); Essential hypertension with goal blood pressure less than 130/80; Pure hypercholesterolemia; Gastroesophageal reflux disease, esophagitis presence not specified; Rib pain on right side s/p fall; Seasonal allergies; Bilateral carpal tunnel syndrome; Hx of colonic polyp 02/28/2018 Office Visit [facility] Gianna Mendosa MD Bilateral carpal tunnel syndrome 02/28/2018 Orders Only [facility] 02/28/2018 Travel Teto Montes MD Head and neck cancer (Primary Dx) 02/06/2018 Office Visit Ent-Otolaryngology Trudy Nelson Abnormal auditory perception of right ear (Primary Dx); Tinnitus of right ear; Bilateral sensorineural hearing loss 02/06/2018 Hospital Audiology Encounter Rafael Graandos MD Itching 01/18/2018 Refill [facility] Chas Flores, Fellow(MD) Marlys Cee MD Lu, Jinyu, Fellow(MD) Malignant neoplasm of ovary, unspecified laterality (Primary Dx); Lung mass; Head and neck cancer; Hypothyroidism, unspecified type 01/12/2018 [facility]; Squamous [...] than 130/80 10/28/2017 Refill Family Practice after 10/06/2017 Immunizations Name Administration Dates Next Due Influenza [...] Date Type Specialty Gianna Mendosa MD [address] [place] [address] [phone] [facility] 10/16/2018 Office Visit [facility] 11/13/2018 Appointment Morris Shore, Fellow() Department of Internal Medicine - [address] [place] [address] CM TEACHING 11/24/2018 Appointment Gastroenterology Irma Allred MD [address] [address] [phone] 12/22/2018 Lab Appointment Lab Irma Allred MD [address] [place] [address] [place] [address] [phone] 01/03/2019 Ancillary Radiology Procedure Irma Allred MD [address] [place] [address] [place] [address] 01/03/2019 Ancillary Radiology Procedure Health [...] Routine 05/01/2018 Bilateral carpal tunnel 8:00 AM SUPERVISOR PAYROLL syndrome CT SOFT TISSUE NECK W Routine [...] VIEWS 11:00 AM CDT s/p fall after 10/06/2017 Results * MAMMOGRAM BILAT SCREEN DIGITAL (08/07/2018 9:49 AM CDT) Specimen Impressions Performed At IMPRESSION: BENIGN SMS There is no mammographic evidence of malignancy. A 1 year screening mammogram is recommended. This document has been electronically signed. Herbert Meng M.D. et/penrad:08/07/2018 10:26:05 Computer Repair Engineer: Ms. Macy Faulkner RT(R)(M), [facility] letter sent: Mammography Normal Mammogram BI-RADS: 2 Benign G0202 z12.31 Narrative Performed At #[id number] - MAMMOGRAM BILAT SCREEN DIGITAL SMS BILATERAL DIGITAL SCREENING MAMMOGRAM WITH CAD: 08/07/2018 CLINICAL: Screening for malignancy. Comparison is made to exams dated:08/01/2017, 07/12/2016 [facility], and 02/03/2015 [facility]. There are scattered fibroglandular elements in [...] Rad/Mammog In - 08/07/2018 11:05 AM CDT #[id number] - MAMMOGRAM BILAT SCREEN DIGITAL BILATERAL DIGITAL SCREENING MAMMOGRAM WITH CAD: 08/07/2018 CLINICAL: Screening for malignancy. Comparison is made to exams dated: 08/01/2017, 07/12/2016 [facility], and 02/03/2015 [facility] [place]. There are scattered fibroglandular elements in both [...] electronically signed. Herbert Meng M.D. et/penrad:08/07/2018 10:26:05 Computer Repair Engineer: Ms. Macy Faulkner RT(R)(M), [facility] letter sent: Mammography Normal Mammogram BI-RADS: 2 [...] included. Albumin 4.5 3.7 - 5.3 g/dL [facility] 1 Calcium 9.7 8.6 - 10.3 mg/dL [facility] 1 CO2 25 21 - 31 mmol/L [facility] 1 Chloride 103 98 - 107 mmol/L [facility] 1 Creatinine 1.00 0.60 - 1.20 mg/dL [facility] 1 Glucose 106 70 - 110 mg/dL [facility] 1 Alkaline 68 34 - 104 U/L [facility] 1 Phosphatase, S Potassium 4.5 3.5 - 5.1 mmol/L [facility] 1 Sodium 140 136 - 145 mmol/L [facility] 1 ALT 40 7 - 52 U/L [facility] 1 AST (SGOT) 37 13 - 39 U/L [facility] 1 BUN 22 7 - 25 mg/dL [facility] 1 Bilirubin, 0.5 0.2 - 1.2 mg/dL [facility] 1 Total Protein, Total, 7.4 6.0 - 8.3 g/dL [facility] 1 Serum GFR, Estimated 57 mL/min/1.73 m2 [facility] 1 eGFR If Africn >60 mL/min/1.73 m2 [facility] 1 Am Anion Gap 12 [facility] 1 Specimen Blood Performing Organization Address City/State/Zipcode Phone Number ANDRES [facility] 1 * CBC/DIFF (06/29/2018 9:11 AM CDT) Only the most recent of 2 results within the time period is included. Pathologist [facility] WBC 8.2 4.5 - 11.0 K/uL [facility] 2 RBC 4.33 4.20 - 5.40 M/uL [facility] 2 Hemoglobin 12.9 12.0 - 16.0 g/dL [facility] 2 Hematocrit 39.6 37.0 - 47.0 % [facility] 2 MCV 92 82 - 92 fL [facility] 2 MCH 29.8 27.0 - 32.0 pg [facility] 2 MCHC 32.6 32.0 - 36.0 g/dL [facility] 2 RDW 48.5 (H) 36.4 - 46.3 fL [facility] 2 Platelets 231 150 - 400 K/uL [facility] 2 Neutrophils 67.0 34.0 - 70.0 % [facility] 2 Lymphs 20.0 20.0 - 50.0 % [facility] 2 Atypical Lymph 1 % [facility] 2 Monocytes 12.0 5.0 - 12.0 % [facility] 2 Basos None seen 0.1 - 1.2 % [facility] 2 Eos None seen 0.7 - 5.0 % [facility] 2 Neutrophils 5.49 1.56 - 6.13 K/uL [facility] 2 (Absolute) Lymphs 1.64 1.18 - 3.74 K/uL [facility] 2 (Absolute) Monocytes(Absol 0.98 (H) 0.24 - 0.36 K/uL [facility] 2 yajaira) Baso (Absolute) None seen 0.01 - 0.08 K/uL [facility] 2 Eos (Absolute) None seen 0.04 - 0.36 K/uL [facility] 2 Specimen Blood Performing Organization Address City/State/Zipcode Phone Number ANDRES [facility] 2 * BONE DENSITY (DUAL PHOTON) [...] in grams ofCa/cm2) was obtained using the HoloEmbercovery SL dual energy x-ray absorptiometer.T-scorevalue is +/-SD [...] (05/24/2018) Narrative Performed At Performing Organization Address City/[facility] Phone Number [facility]FT * [facility] CONSULT OUTPATIENT (05/01/2018 8:00 AM SUPERVISOR PAYROLL) Narrative Performed At Juju Moscoso MD 05/02/2018 11:30 AM [facility], DEPT PMR [address] [place] [address] ELECTROMYOGRAPHY REPORT NAME : PORSHA GILMORE GENDER: [...] FEW MONTHS, BUT NOT SINCE THEN).STATES WORKS PATIENT INTAKE REPRESENTATIVE, 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 AGO, + HAND WEAKNESS/DROPPING OBJECTS BUT NOT OFTEN SEVERITY: INTERMITTENT, AT ITS WORST 10/28 TIMING: INTERMITTENT, UNSURE OF WORSE AT NIGHT, WORSE WITH HAND USE 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 FACULTY: MD ARCADIO [facility] ELECTRODIAGNOSTIC LABORATORY NORMAL REFERENCE VALUES FOR COMMON NERVE CONDUCTION STUDIES References used for this table from: 1. Ericer and Leona, Manual of Nerve Conduction Studies, 2nd edition, 2006, [employer], [place], [place] (for a complete listing please refer to this manual) and2. * Justin Hernandez, and Jose Luis, Electrodiagnostic Medicine, 2nd edition, 2002, [employer], [place], [place]. Skin temperature should be > 32 [...] MD, 01/06/2018 1:36 PM Performing Organization Address City/[facility]/Zipcode Phone Number SMS * TSH (01/06/2018 8:12 AM CDT) TSH 4.40 (H) 0.57 - 3.74 uIU/mL BT MAIN-STATION 1 Specimen Performing Organization Address City/[facility] Phone Number MISYS BT MAIN-STATION 1 [...] Organization Address City/State/Zipcode Phone Number SMS after 10/06/2017 Insurance Type Payer Benefit Subscriber ID Effective Phone Address Plan / Dates Group [facility] xxxxxxxxx 2018-2 [address] [facility] [id number] [place] [address] [facility] PLAN HD PLAN xxxxxx 2018-3 [id number] [place] [address] Advance Directives Date Inactivated Comments Code Status Date Activated 11/17/2016 2:55 PM Full Code 11/11/2016 6:57 PM 11/11/2016 6:52 PM Full Code 11/11/2016 10:39 AM 06/12/2015 11:21 AM Full Code 06/11/2015 5:16 PM
[2018-10-07 04:00] VITALS: BP 125/65
--- NOTE | 2018-10-07 04:14 | NUR ---
Received report from Venessa, ER nurse. Patient arrived via stretcher. Patient is A&Ox3. patient in no pain. call light within reach.
[2018-10-07 04:15] VITALS: BP 125/65
[2018-10-07] MEDS: SODIUM CHLORIDE 0.9% 1000ML 1,000 ML IV SCH ×3 (04:51→20:37)
[2018-10-07] MEDS ORDERED: METOCLOPRAMIDE HCL 10 MG/2ML VIAL IV SCH (06:00)
--- NOTE | 2018-10-07 07:01 | NUR ---
Gave report to oncoming nurse. Patient asleep in bed. Call light within reach.
[2018-10-07 07:30] VITALS: BP 138/83
[2018-10-07] MEDS ORDERED: PANTOPRAZOLE 40 MG 10ML VIAL IV SCH (09:00)
[2018-10-07] MEDS ORDERED: HYDROXYZINE HCL 25 MG TAB PO PRN (09:30)
[2018-10-07] MEDS ORDERED: PROMETHAZINE 12.5MG/ NACL 0.9% 12.5 MG/50 ML BAG IV PRN (09:30)
[2018-10-07] MEDS ORDERED: TRIAMCINOLONE ACET 0.1% CREAM 15 GM TUBE TOP PRN (09:30)
[2018-10-07] MEDS: TRAMADOL HCL 50 MG TAB PO PRN (09:43)
[2018-10-07] MEDS: CEFEPIME 1GM/NS 0.9% 50 ML 50 ML IV SCH ×2 (10:15→20:37)
[2018-10-07] MEDS: LORATADINE 10 MG TAB PO SCH (10:15)
[2018-10-07] MEDS: METOPROLOL TARTRATE 25 MG TAB PO SCH ×2 (10:16→17:55)
[2018-10-07] MEDS: AMLODIPINE BESYLATE 10 MG TAB PO SCH (10:16)
--- NOTE | 2018-10-07 13:44 | NUR ---
Received patient via bed from the observation unit. Patient is A&Ox3. Patient has no complaints at this time. Patient oriented to the room. Patient in no distress. Call cavazos within reach. Bed is low and locked. Educated patient to call for assistance.
[2018-10-07 16:55] VITALS: BP 123/72
[2018-10-07 20:15] VITALS: BP 105/70
[2018-10-07] MEDS: PRAVASTATIN 20 MG TAB PO SCH (20:37)
[2018-10-07 23:49] VITALS: BP 115/75
[2018-10-08] VITALS (8 sets, daily range): BP systolic 102–180; BP diastolic 67–85
[2018-10-08] MEDS: SODIUM CHLORIDE 0.9% 1000ML 1,000 ML IV SCH ×3 (02:41→18:41)
[2018-10-08 05:50] LABS: BASOPHILS % 0.6 % (0.0-1.0); EOSINOPHILS # (AUTO) 0.4 (0.0-0.4); EOSINOPHILS % 5.9 % (0.0-6.0); HEMATOCRIT 30.8 % (34.2-44.1); HEMOGLOBIN 10.3 g/dL (12.0-16.0); LYMPHOCYTES # (AUTO) 1.7 (1.0-3.2); LYMPHOCYTES % 25.4 % (18.0-39.1); MEAN CORPUSCULAR HEMOGLOBIN 29.9 pg (28-32); MEAN CORPUSCULAR HGB CONC 33.4 g/dL (31-35); MEAN CORPUSCULAR VOLUME 89.5 fL (81-99); MONOCYTES # (AUTO) 0.9 (0.2-0.8); MONOCYTES % 13.4 % (4.4-11.3); NEUTROPHILS # (AUTO) 3.6 (2.1-6.9); NEUTROPHILS % 54.1 % (38.7-80.0); PLATELET COUNT 209 x10e3/uL (140-360); RED BLOOD COUNT 3.44 x10e6/uL (3.6-5.1); RED CELL DISTRIBUTION WIDTH 15.2 % (11.7-14.4)
[2018-10-08 06:17] LABS: ALBUMIN 3.2 g/dL (3.5-5.0); ALBUMIN/GLOBULIN RATIO 0.9 (0.8-2.0); ANION GAP 17.6 mmol/L (8-16); CALCIUM 7.4 mg/dL (8.4-10.2); CREATININE, SERUM 1.11 mg/dL (0.57-1.11); POTASSIUM 3.6 mmol/L (3.5-5.1)
[2018-10-08] MEDS: AMLODIPINE BESYLATE 10 MG TAB PO SCH (09:21)
[2018-10-08] MEDS: PANTOPRAZOLE 40 MG 10ML VIAL IV SCH (09:21)
[2018-10-08] MEDS: METOPROLOL TARTRATE 25 MG TAB PO SCH ×2 (09:21→17:16)
[2018-10-08] MEDS: LORATADINE 10 MG TAB PO SCH (09:21)
[2018-10-08] MEDS: CEFEPIME 1GM/NS 0.9% 50 ML 50 ML IV SCH ×2 (09:22→22:10)
--- NOTE | 2018-10-08 13:15 | NUR ---
Patient called to let me know that her IV is leaking. Removed IV so patient could shower. Will start new IV after shower.
[2018-10-08] MEDS: TRAMADOL HCL 50 MG TAB PO PRN ×2 (15:36→22:10)
--- NOTE | 2018-10-08 19:00 | NUR ---
received report from day nurse. patient is resting comfortably in bed. bed is in lowest position and call cavazos is within reach. will continue to monitor patient.
--- NOTE | 2018-10-08 19:15 | NUR ---
Report given to overnight cashier nurse. Patient is no distress. Walking rounds performed. Call light within reach.
[2018-10-08] MEDS: PRAVASTATIN 20 MG TAB PO SCH (22:10)
[2018-10-09] VITALS (9 sets, daily range): BP systolic 111–120; BP diastolic 62–80
[2018-10-09] MEDS: SODIUM CHLORIDE 0.9% 1000ML 1,000 ML IV SCH (02:41)
--- NOTE | 2018-10-09 07:00 | NUR ---
PT RESTING IN BED AA0X3 PT IS IN NO S.S OF DISTRESS PT HAS A LEFT WRIST 20 WITH NS AT 125 (IV SITE CLEAN AND DRY) WILL CONTINUE TO MONITOR PT CLOSELY , SIDE RAILSX2, BED WHEELS LOCKED CALL LIGHT IS WITHIN EASY REACH, INSTRUCTED TO CALL FOR ASSISTANCE IF NEEDED
[2018-10-09] MEDS: TRAMADOL HCL 50 MG TAB PO PRN ×3 (07:40→21:14)
[2018-10-09] MEDS: PANTOPRAZOLE 40 MG 10ML VIAL IV SCH (07:40)
[2018-10-09] MEDS: METOPROLOL TARTRATE 25 MG TAB PO SCH ×2 (07:40→17:14)
[2018-10-09] MEDS: LORATADINE 10 MG TAB PO SCH (07:40)
[2018-10-09] MEDS: AMLODIPINE BESYLATE 10 MG TAB PO SCH (08:33)
--- NOTE | 2018-10-09 09:50 | History and Physical ---
REASONS FOR ADMISSION: Sepsis, intractable nausea, vomiting, and abdominal pain with complicated urinary tract infection associated with bilateral ureteral stent. SUMMARY: The patient is a 58-year-old female. On September 24, 2018, the patient had bilateral hydronephrosis due to stone associated urinary tract infection. The patient had bilateral stent placement after cystourethroscopy done by Dr. Ethan Gloria. The patient came in this time [place] [address]. Urinalysis 3+ blood, WBC and moderate sediment with bacteria. The patient also had a bicarb of 6. BUN and creatinine of 16 and 1.5. The patient received antibiotic, admitted to the hospital. CT scan of abdomen and pelvis showed stable bilateral ureteral stent, no hydronephrosis. The patient is complaining of lower back pain. She did have tachycardia. The patient is admitted. PAST MEDICAL HISTORY: 1. Bilateral ureteral stone with obstruction, status post bilateral ureteral stent placement. 2. Hypertension. 3. Reflux dyslipidemia. PAST SURGICAL HISTORY: 1. Stone management. 2. Bilateral ureteral stent placement. 3. Hysterectomy. 4. Lung surgery. 5. History of stomach mass removal. 6. THE patient is a historian history. SOCIAL HISTORY: The patient is a smoker. No alcohol consumption. ALLERGIES: NO KNOWN ALLERGIES. HOME MEDICATIONS: Alendronate, Norvasc, aspirin, Zyrtec, Dexilant, hydroxyzine, ibuprofen, metoprolol tartrate, pravastatin, tramadol and steroids. Topical cream. PHYSICAL EXAMINATION: VITAL SIGNS: Temperature is 97, blood pressure 130/83, pulse rate 100, and respirations 18. GENERAL: The patient is in pain, but she is not in any distress. HEENT: Normocephalic, atraumatic. Pupils reactive. Anicteric. NECK: Supple grossly. PULMONARY: Diminished breath sounds. CARDIOVASCULAR: Tachycardia. ABDOMEN: Soft. Obese. Generalized discomfort. Bilateral flank tenderness. EXTREMITIES: No cyanosis or edema. NEUROLOGIC: No focal deficit. LABORATORY DATA: Sodium 134, potassium 3.8, chloride 92, bicarb 6, BUN is 16, creatinine 1.5, glucose 107. WBC of 18.2, hemoglobin 12.9, hematocrit 39.4, and platelets is 333. IMPRESSION: 1. Sepsis without shock. 2. Complicated urinary tract infection associated with the bilateral ureteral stent with history of stone. 3. Metabolic acidosis. 4. Dehydration. 5. Chronic lower back pain with previous compression fractures. PLAN: Continue with antibiotics, IV fluids, pain control. Consultation with Dr. Ethan Gloria. Check urine culture and blood culture. We will continue to follow the patient closely. MD SOHAM Velazquez/LINDSEY /[id number]
[2018-10-09] MEDS: CEFEPIME 1GM/NS 0.9% 50 ML 50 ML IV SCH ×2 (10:13→21:15)
[2018-10-09] MEDS: CELECOXIB 200 MG CAP PO SCH ×2 (10:13→17:14)
[2018-10-09] MEDS ORDERED: ONDANSETRON HCL 4 MG ORAL DISINTEGRATING TAB PO PRN (13:45)
--- NOTE | 2018-10-09 15:00 | NUR ---
asher maria for pt uncontrolled pain (tramadol , ice pack, not effective)
[2018-10-09] MEDS: PRAVASTATIN 20 MG TAB PO SCH (21:14)
--- NOTE | 2018-10-09 21:25 | NUR ---
Dr. Zamudio notified of patient pain. New orders received.
--- NOTE | 2018-10-09 22:33 | Diagnostic Imaging Report ---
ANKLE 3+ VIEWS LEFT - 3 views HISTORY: Pain COMPARISON: None available. FINDINGS: Bones: No acute displaced fracture. Osseous alignment is within normal limits. Joints: The joint spaces are well-maintained. Soft tissues: The soft tissues appear unremarkable. IMPRESSION: No acute radiographic abnormality. Signed by: Dr. Miguel Cabral MD on 10/09/2018 10:29 PM
[2018-10-09] MEDS: ACETAMINOPHEN/CODEINE 300MG - 30MG TAB PO PRN (23:15)
[2018-10-10 00:07] VITALS: BP 130/69
[2018-10-10 04:00] VITALS: BP 112/70
[2018-10-10] MEDS: ACETAMINOPHEN/CODEINE 300MG - 30MG TAB PO PRN (05:17)
[2018-10-10] MEDS ORDERED: OMEPRAZOLE 20 MG CAP PO SCH (07:30)
[2018-10-10] MEDS: AMLODIPINE BESYLATE 10 MG TAB PO SCH (07:40)
[2018-10-10 07:50] VITALS: BP 111/83
[2018-10-10 08:21] VITALS: BP 111/83
[2018-10-10] MEDS: METOPROLOL TARTRATE 25 MG TAB PO SCH (08:21)
[2018-10-10] MEDS: LORATADINE 10 MG TAB PO SCH (08:21)
[2018-10-10] MEDS: CELECOXIB 200 MG CAP PO SCH (08:21)
[2018-10-10] MEDS ORDERED: MYRBETRIQ50 MG PO (09:19)
[2018-10-10] MEDS ORDERED: COLCRYS0.6 MG PO (09:20)
[2018-10-10] MEDS ORDERED: CIPRO500 MG PO (09:20)
[2018-10-10] MEDS ORDERED: TYLENOL WITH C1 EACH PO (09:21)
[2018-10-10] MEDS ORDERED: [UNRECOGNIZED DRUG - OTHER] (09:26)
--- NOTE | 2018-10-10 09:40 | Discharge Summary ---
FINAL DIAGNOSES: 1. Sepsis without shock associated with urinary tract infection and bilateral ureteral stent previously. 2. Metabolic acidosis with high lactic acid level corrected. 3. Status post dehydration. 4. Left ankle gout, acute exacerbation with uric acid of 8.4. 5. Multiple chronic baseline problems. DISCHARGE MEDICATIONS: 1. Myrbetriq 50 mg once a day. 2. Medrol Dosepak. 3. Colchicine 0.6 mg q.4h p.r.n. for gout exacerbation pain. 4. Cipro 5 mg b.i.d. for seven days. 5. Tylenol No. 3 p.r.n. for pain. SUMMARY: The patient is a 58-year-old female, who came in with intractable nausea and vomiting, dehydrated. Lab work found that the patient had WBC of 18.1 along with bicarb of 6. The patient's uric acid level subsequently also check at 8.4. Her creatinine was 1.5. The patient was having nausea and vomiting and dehydrated. Her renal recovery creatinine is 1.1. The patient is able to tolerate all her diet. Urine bacteria are rare, but WBC and RBC is positive. Moderate sediment. 2+ protein. 2+ ketone. The patient is stable. She will go home today. She will follow up with Dr. Ethan Gloria for her stent management at a later date. The patient is otherwise stable. Discharged today. Colchicine given. Discussed with the patient regarding her gout treatment. She will need long-term gout treatment with her primary care physician and due to acute gout exacerbation no allopurinol at this time. MD SOHAM Velazquez/LINDSEY /[id number]
[2018-10-10] MEDS ORDERED: COLCHICINE 0.6 MG TAB PO ONE (09:45)
--- NOTE | 2018-10-10 09:45 | NUR ---
DISCHARGE INSTRUCTIONS AND PRESCRIPTIONS GIVEN PT VERBALIZED UNDERSTANDING IV DC PRESSURE DRESSING APPLIED AND TAPED PT IS NOW OFF UNIT TO HOME VIA WHEEL CHAIR
[2018-10-10] MEDS ORDERED: SIMVASTATIN 20 MG TAB PO SCH (21:00)
== END 2018-10-10 09:47 | disposition home or self-care (01) | DRG 698 ==
LOC: ER 20:57 → ERHOLD 10-07 02:57 → IMCU 10-07 04:11 → OBSVTOIN 10-07 09:31 → MED/SURG 10-07 13:47
PROVIDERS: ADMIT Internal Medicine; ATTEND Internal Medicine
DX: T83.593A Infection and inflammatory reaction due to other urinary stents, initial encounter (principal); A41.9 Sepsis, unspecified organism; N39.0 Urinary tract infection, site not specified; E87.2 Acidosis; M48.50XA Collapsed vertebra, not elsewhere classified, site unspecified, initial encounter for fracture; N17.9 Acute kidney failure, unspecified; E86.0 Dehydration; M54.9 Dorsalgia, unspecified; I10 Essential (primary) hypertension; K21.9 Gastro-esophageal reflux disease without esophagitis; E78.5 Hyperlipidemia, unspecified; F17.210 Nicotine dependence, cigarettes, uncomplicated; R31.29 Other microscopic hematuria; N39.41 Urge incontinence; M10.072 Idiopathic gout, left ankle and foot
CPT/HCPCS: 36415; 74176; 80053; 81001; 82150; 82550; 82553; 83690; 84484; 84550; 85025; 87040; 87086; 93005; 99284; J0692; J1170; J2405; J2550; J2765; J7030

== ENCOUNTER → 2018-10-14 | Day surgery (SDC) | payer OTHER ==
--- NOTE | 2018-10-13 10:54 | Diagnostic Imaging Report ---
EXAMINATION: CHEST 2 VIEWS INDICATION: Pre-operative COMPARISON: None FINDINGS: TUBES and LINES: None. LUNGS: The lungs are well-inflated. No focal consolidation or pulmonary edema. Mild subsegmental atelectasis at the left mid lung and left lung base. PLEURA: No pleural effusion or pneumothorax. HEART AND MEDIASTINUM: The cardiomediastinal silhouette is normal in size and contour. BONES AND SOFT TISSUES: No acute fracture or dislocation. Mild degenerative changes of the visualized spine. UPPER ABDOMEN: No free air under the diaphragm. IMPRESSION: No focal pneumonia or pulmonary edema. Mild subsegmental atelectasis at the left mid lung and left lung base. Signed by: Judith Victoria MD on 10/13/2018 10:51 AM
[~2018-10-14] MED LIST changes: +B&O 60MG R/S 60 MG SUPP PR ONE; +CEFTRIAXONE SOD 1 GM/NS 50 ML 50 ML IV ONE; +COLCRYS0.6 MG PO; +DEXAMETHASONE SOD PHOS INJ 4 MG/ML VIAL ONE; +IOPAMIDOL 610MG/1ML 300 MG/ML VIAL IV ONE; +LIDOCAINE HCL 2% LOCAL INJ 5 ML SDV VIAL INJ ONE; +MYRBETRIQ50 MG PO; +ONDANSETRON HCL INJ 2MG/ML 2ML 2 MG/ML VIAL ONE; +PROPOFOL IV EMULSION 10 MG/ML 20 ML VIAL ONE; +SEVOFLURANE INHAL SOLN 250 ML PEN BTL ONE; +TYLENOL WITH C1 EACH PO; +[UNRECOGNIZED DRUG - OTHER]
--- OUTSIDE RECORDS SUMMARY | 2018-10-14 14:19 | XMS REPORT | Clinical Summary ---
Author Author [facility] Organization [facility] Address Unknown Phone Unavailable Care Team Providers Care Stock Wetter Name Role Phone Gianna Mendosa MD PCP [...] polyethylene glycol Add lukewarm 4000 mL 0 (Mimiboard) [id number] drinking 9 -5.86 gram oral water [...] contacted regarding plan: Yes Terry Griffiths, PILAR, BODY PRESSER-C, Nurse Practitioner, [facility] , ID # [id number] Pager # [phone] [place] 05/17/17 Ms. Gilmore is a 56yoF [...] candidate for SBRT. Patient was discussed at [facility] on 07/10/15: Diagnosis: [id number] SCC unknown [...] Travel Rafael Granados MD Itching 06/21/2018 Refill [facility] Gianna Mendosa MD Early onset menopause 06/05/2018 Hospital Radiology Encounter Joseph McintyreArleyTismaty Colonoscopy 05/31/2018 Telephone Gianna Mendosa MD Bilateral carpal tunnel syndrome (Primary Dx) 05/22/2018 Office Visit [facility] Gianna Mendosa MD Right sided sciatica (Primary Dx); Essential hypertension with goal blood pressure less than 130/80; Early onset menopause; Bilateral carpal tunnel syndrome 05/19/2018 Office Visit [facility] 05/19/2018 Travel Rafael Graandos MD Essential hypertension with goal blood pressure [...] Hx of colonic polyp 02/28/2018 Office Visit [facility] Gianna Mendosa MD Bilateral carpal tunnel syndrome 02/28/2018 Orders Only [facility] 02/28/2018 Travel Teto Montes MD Head and neck cancer (Primary Dx) 02/06/2018 Office Visit Ent-Otolaryngology Trudy Nelson Abnormal auditory perception of right ear (Primary Dx); Tinnitus of right ear; Bilateral sensorineural hearing loss 02/06/2018 Hospital Audiology Encounter Rafael Granados MD Itching 01/18/2018 Refill [facility] Chas Flores, Fellow(MD) Marlys Cee MD Lu, Jinyu, Fellow(MD) Malignant neoplasm of ovary, unspecified laterality (Primary Dx); Lung mass; Head and neck cancer; Hypothyroidism, unspecified type 01/12/2018 [facility] Head and neck cancer; Squamous cell [...] than 130/80 10/28/2017 Refill Family Practice after 10/13/2017 Immunizations Name Administration Dates Next Due Influenza [...] Date Type Specialty Gianna Mendosa MD [address] [place] [address] [phone] [facility] 10/16/2018 Office Visit Family Practice 11/13/2018 Appointment Morris Shore, Fellow() Department of Internal Medicine - [address] [place] [address] CM TEACHING 11/24/2018 Appointment Gastroenterology Linda Frye, Fellow() Department of Internal Medicine- [facility] [address] [place] [address] Referral #: [id number] 12/13/2018 Office Visit Endocrinology Irma Allred MD [address] [place] [address] [place] [address] 12/22/2018 Lab Appointment Lab Irma Allred MD [address] [place] [address] [place] [address] [phone] 01/03/2019 Ancillary Radiology Procedure Irma Allred MD [address] [place] [address] [place] [address] [phone] 01/03/2019 Ancillary Radiology Procedure Health Maintenance Due [...] Routine 05/01/2018 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 A 1 year screening mammogram is recommended. This document has been electronically signed. Herbert Meng M.D. et/penrad:08/07/2018 10:26:05 Athlete Marketing Agent: Ms. Macy Faulkner RT(R)(M), [facility] letter sent: Mammography Normal Mammogram BI-RADS: 2 Benign G0202 z12.31 Narrative Performed At #[id number] - MAMMOGRAM BILAT SCREEN DIGITAL SMS BILATERAL DIGITAL SCREENING MAMMOGRAM WITH CAD: 08/07/2018 CLINICAL: Screening for malignancy. Comparison is made to exams dated:08/01/2017, 07/12/2016 [facility], and 02/03/2015 [facility]. There are scattered fibroglandular elements in [...] Rad/Mammog In - 08/07/2018 11:05 AM CDT #[id number] - MAMMOGRAM BILAT SCREEN DIGITAL BILATERAL DIGITAL SCREENING MAMMOGRAM WITH CAD: 08/07/2018 CLINICAL: Screening for malignancy. Comparison is made to exams dated: 08/01/2017, 07/12/2016 [facility], and 02/03/2015 [facility]. There are scattered fibroglandular elements in [...] electronically signed. Herbert Meng M.D. et/penrad:08/07/2018 10:26:05 Athlete Marketing Agent: Ms. Macy Faulkner RT(R)(M), [facility] letter sent: Mammography Normal Mammogram BI-RADS: 2 [...] included. Albumin 4.5 3.7 - 5.3 g/dL [facility] 1 Calcium 9.7 8.6 - 10.3 mg/dL [facility] 1 CO2 25 21 - 31 mmol/L [facility] 1 Chloride 103 98 - 107 mmol/L [facility] 1 Creatinine 1.00 0.60 - 1.20 mg/dL [facility] 1 Glucose 106 70 - 110 mg/dL [facility] 1 Alkaline 68 34 - 104 U/L [facility] 1 Phosphatase, S Potassium 4.5 3.5 - 5.1 mmol/L [facility] 1 Sodium 140 136 - 145 mmol/L [facility] 1 ALT 40 7 - 52 U/L [facility] 1 AST (SGOT) 37 13 - 39 U/L [facility] 1 BUN 22 7 - 25 mg/dL [facility] 1 Bilirubin, 0.5 0.2 - 1.2 mg/dL [facility] 1 Total Protein, Total, 7.4 6.0 - 8.3 g/dL [facility] 1 Serum GFR, Estimated 57 mL/min/1.73 m2 [facility] 1 eGFR If Africn >60 mL/min/1.73 m2 [facility] 1 Am Anion Gap 12 [facility] 1 Specimen Blood Performing Organization Address City/[facility]/Zipcode Phone Number [place] [facility] 1 * CBC/DIFF (06/29/2018 9:11 AM CDT) Only the most recent of 2 results within the time period is included. WBC 8.2 4.5 - 11.0 K/uL [facility] 2 RBC 4.33 4.20 - 5.40 M/uL [facility] 2 Hemoglobin 12.9 12.0 - 16.0 g/dL [facility] 2 Hematocrit 39.6 37.0 - 47.0 % [facility] 2 MCV 92 82 - 92 fL [facility] 2 MCH 29.8 27.0 - 32.0 pg [facility] 2 MCHC 32.6 32.0 - 36.0 g/dL [facility] 2 RDW 48.5 (H) 36.4 - 46.3 fL [facility] 2 Platelets 231 150 - 400 K/uL [facility] 2 Neutrophils 67.0 34.0 - 70.0 % [facility] 2 Lymphs 20.0 20.0 - 50.0 % [facility] 2 Atypical Lymph 1 % [facility] 2 Monocytes 12.0 5.0 - 12.0 % [facility] 2 Basos None seen 0.1 - 1.2 % [facility] 2 Eos None seen 0.7 - 5.0 % [facility] 2 Neutrophils 5.49 1.56 - 6.13 K/uL [facility] 2 (Absolute) Lymphs 1.64 1.18 - 3.74 K/uL [facility] 2 (Absolute) Monocytes(Absol 0.98 (H) 0.24 - 0.36 K/uL [facility] 2 rampart) Baso (Absolute) None seen 0.01 - 0.08 K/uL [facility] 2 Eos (Absolute) None seen 0.04 - 0.36 K/uL [facility] 2 Specimen Blood Performing Organization Address City/State/Zipcode Phone Number [place] [id number] * BONE DENSITY (DUAL PHOTON) (06/05/2018 11:55 AM CDT) Specimen Impressions Performed At IMPRESSION: [facility] Osteoporosis of the left femoral neck. Dictated By: Joel Iglesias MD, 06/05/2018 1:58 PM I have reviewed the study and agree with the findings in this report. Signed By: Teto Almaguer MD, 06/05/2018 2:21 PM Narrative Performed At EXAM: BONE MINERAL DENSITY (DEXA) : [facility] DATE:06/05/2018 9:48 AM INDICATION:screen osteoporosis , early menopause . TECHNIQUE: Lumbar spine and hip bone mineral densitometry (measured in grams ofCa/cm2) was obtained using the [employer] SL dual energy x-ray absorptiometer.T-scorevalue is +/-SD [...] (05/24/2018) Narrative Performed At Performing Organization Address City/[facility] Phone Number ENDOSOFT * EMG CONSULT OUTPATIENT (05/01/2018 8:00 AM WOOD HEEL CEMENTER) Narrative Performed At Juju Moscoso MD 05/02/2018 11:30 AM [facility], DEPT PMR [address] [place] [address] ELECTROMYOGRAPHY REPORT NAME : PORSHA GILMORE GENDER: [...] FEW MONTHS, BUT NOT SINCE THEN).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, 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 AGO, + HAND WEAKNESS/DROPPING OBJECTS BUT NOT OFTEN SEVERITY: INTERMITTENT, AT ITS WORST 8/10 TIMING: INTERMITTENT, UNSURE OF WORSE AT NIGHT, WORSE WITH HAND USE NEUROSURGERY PHYSICIAN DENIES ANY NECK PAIN THAT RADIATES DOWN HANDS AT THIS TIME REVIEW OF SYSTEMS: Constitutional symptoms:NO RECENT FEVER, CHILLS, COUGH Gastrointestinal : NEG Genitourinary : NEG Musculoskeletal: - PAIN RECENTLY Skin: NO RASHES OR WOUNDS Neurological: +NUMBNESS+ WEAKNESS Psychiatric: NO DEPRESSED MOOD OR ANXIETY Endocrine: -DM -THYROID DZ SOCIAL HISTORY: -TOB (FORMER SMOKER, QUIT 2 YEARS AGO, PREVIOUS 1PPD)+ETOH (2-3 DRINKS A MONTH)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 Cole and Leona, Manual of Nerve Conduction Studies, 2nd edition, 2006, [employer], [place], [place] (for a complete listing please refer to this manual) and2. * Justin Hernandez, and Jose Luis, Electrodiagnostic Medicine, 2nd edition, 2002, [employer], [place], [place]. Skin temperature should be > 32 [...] MD, 01/06/2018 1:36 PM Performing Organization Address City/State/[facility] Phone Number SMS * TSH (01/06/2018 8:12 AM CDT) TSH 4.40 (H) 0.57 - 3.74 uIU/mL [facility] 1 Specimen Performing Organization Address City/State/[facility] Phone Number MISYS [facility] 1 * [...] AM Performing Organization Address City/State/Zipcode Phone Number [facility] after 10/13/2017 Insurance Type Payer Benefit Subscriber ID Effective Phone Address Plan / Dates Group [facility] xxxxxxxxx 2018-[address] [facility] [address] [place] [address] [employer] PLAN [employer] PLAN xxxxxx 2018-3 [address] [place] [address] Advance Directives Date Inactivated Comments Code Status Date Activated 11/17/2016 2:55 PM Full Code 11/11/2016 6:57 PM 11/11/2016 6:52 PM Full Code 11/11/2016 10:39 AM 06/12/2015 11:21 AM Full Code 06/11/2015 5:16 PM
[2018-10-14 14:49] VITALS: BP 107/79
--- NOTE | 2018-12-14 09:02 | Operative Report ---
DATE OF PROCEDURE: 10/14/2018 SURGEON: Ethan Gloria MD PREOPERATIVE DIAGNOSES: 1. Right ureterolithiasis. 2. Left ureterolithiasis. 3. Bilateral indwelling ureteral stents. POSTOPERATIVE DIAGNOSES: 1. Right ureterolithiasis. 2. Left ureterolithiasis. 3. Bilateral indwelling ureteral stents. 4. Grade 1 cystocele. 5. Urethral hypermobility. 6. Severe grade 3 to 4 rectocele. 7. Atrophic (senile) vaginitis. OPERATIONS PERFORMED: Note, these were all staged procedures as part of multi-staged and multi-step process in managing the patient's urolithiasis. 1. Cystourethroscopy with removal of bilateral indwelling ureteral stents (separate procedure performed for the diagnosis with stents done separate scope). 2. Bilateral ureteroscopy (separate performed to evaluate for any residual urolithiasis. 3. Radiological services for supervision and interpretation of ureteroscopy. 4. Interpretation of retrograde ureteropyelography. 5. Supervision of fluoroscopy, no radiologist present. 6. Pelvic examination under anesthesia. ANESTHESIA: General. COMPLICATIONS: None. CLINICAL SUMMARY: Michelle Gilmore is a 58-year-old woman with bilateral urolithiasis. She has bilateral ureteral stents remaining. She was brought to the operating room today in hopes of rendering her stent free and stone free. She is aware of the risks of bleeding, infection, injury to adjacent structures, need for additional procedures and elected to proceed. OPERATIVE PROCEDURE IN DETAIL: Informed consent was verified. Michelle Gilmore was properly identified and taken to the operating room, placed on the cystoscopy table in supine position. Anesthesia was uneventfully begun. The patient was then carefully and gently repositioned in dorsal lithotomy position. All pressure points were well padded. Her genitalia were prepared and draped in usual sterile fashion. The cystoscope sheath with obturator in place was atraumatically inserted into the patient's urethra and bladder was drained. Panendoscopy revealed a stent emerging from both ureteral orifices, but there were no suspicious lesions, no tumors, no stones. Guidewire was then placed into the right ureter and guided to the level of the patient's kidney. The stent was then grasped, completely removed and discarded. Semi-rigid ureteroscope was then inserted alongside the guidewire into the distal right ureter. Contrast was injected. No stones were identified. A flexible ureteroscope was then placed over the guidewire and guided below the patient's kidney. Panendoscopy of the intrarenal collecting system revealed Gerald's plaques throughout, but there were no tumors and no true stones. No suspicious mucosal lesions were identified. We carefully examined the ureter as we exited and exhibited no stones, no tumors, no strictures, and no problems. An identical procedure sequence was performed on the left hand side with identical findings. Interpretation of retrograde ureteropyelography contrast was instilled in retrograde fashion bilaterally. There was some chronic appearing fullness of both collecting systems as one would expect with indwelling stents, but there were no filling defects. Unobstructed drainage was observed bilaterally fluoroscopically. The patient's bladder was drained. Cystoscope was withdrawn. Pelvic examination under anesthesia revealed a grade 1 cystocele with urethral hypermobility. There was severe grade 3 to 4 rectocele and there was atrophic (senile) vaginitis. No suspicious mucosal lesions were identified. There were obvious new or no abnormal palpable pelvic masses that could be appreciated. The patient was then uneventfully reversed from anesthesia and taken to the recovery room in stable condition. There were no complications to the procedure. She tolerated the procedure well. Explicit postop instructions were given. We will follow the patient up in the office. Upon followup we plan to perform metabolic stone workup and ongoing urological followup. MD CHITRA Hagen/LINDSEY /[id number]
== END | disposition home or self-care (01) ==
LOC: OR 11:15
PROVIDERS: ATTEND Urology
DX: N20.1 Calculus of ureter (principal); Z46.6 Encounter for fitting and adjustment of urinary device; N81.10 Cystocele, unspecified; N36.41 Hypermobility of urethra; N81.6 Rectocele; N95.2 Postmenopausal atrophic vaginitis; N28.89 Other specified disorders of kidney and ureter; I10 Essential (primary) hypertension; Z01.818 Encounter for other preprocedural examination; Z79.82 Long term (current) use of aspirin; Z85.118 Personal history of other malignant neoplasm of bronchus and lung; Z87.891 Personal history of nicotine dependence
CPT/HCPCS: 52351; 71046; 74420; C1758; J0696; J1100; J2001; J2405; J2704; Q9967